=== PATIENT | male | born 1945 | race Caucasian/White ===

== ENCOUNTER 2018-01-22 15:40 | Inpatient (IN) | payer SELFPAY ==
[~2018-01-22] VITALS: Ht 182.9 cm; Wt 79.4 kg
--- NOTE | 2018-01-22 15:50 | ER Report ---
History and Physical Time Seen By MD: 15:43 HPI/ROS CHIEF COMPLAINT: leg infection HISTORY OF PRESENT ILLNESS: Pt here for evaluation of right leg infection. Pt states on thursday he was in bed and felt something bite on his right leg lateral to his knee. Did not see what happened. PT states he developed a small blister in that area that has since grown in size and has caused increase in redness to surrounding area. Pt states he has had chills and fever. Treating pain and fever with motrin and tylenol. Pt appears sob but states that is his baseline. Pt went to urgent care and was sent to the emergency department. REVIEW OF SYSTEMS: Constitutional: + fever, + chills. Eyes: No discharge. ENT: No sore throat. Cardiovascular: No chest pain, no palpitations. Respiratory: No cough, +chronic shortness of breath. Gastrointestinal: No abdominal pain, no vomiting. Genitourinary: No hematuria. Musculoskeletal: No back pain. Skin: + blister that enlarged into redness to his leg. Neurological: No headache. Allergies: Coded Allergies: codeine (Verified Allergy, Unknown, 01/22/18) Home Meds No Active Prescriptions or Reported Meds Past Medical/Surgical History Pmhx: skin ca to face and neck not receiving chemo or radiation Pshx: pilonidal cyst Reviewed Nurses Notes: Yes Old Medical Records Reviewed: No (no old records) Hx Smoking: No Hx Alcohol Use: No Constitutional Vital Sign - Last 24 Hours 01/22/18 15:46 Temp 98.2 Pulse 89 Resp 20 B/P (MAP) 133/78 Pulse Ox 94 O2 Delivery Room Air Physical Exam General Appearance: The patient is alert, has no immediate need for airway protection and no signs of toxicity. Eyes: Pupils equal and round no pallor or injection, EOMI ENT: no pharyngeal erythema or exudates, Mucous membranes are moist Respiratory: There are no retractions, lungs are clear to auscultation. Cardiovascular: Regular rate and rhythm. pulses are equal and symmetrical Gastrointestinal: Abdomen is soft and non tender, no masses, bowel sounds normal, no guarding, no rigidity or rebound Neurological: Cranial nerves II-XII grossly intact, no sensory or motor loss Skin: +r facial lesion under left eye and left side of neck chronic; + 12 x 20cm central erythema with streaking up his thigh and down his leg to ankle. Musculoskeletal: Neck is supple non tender, no vertebral tenderness Extremities are nontender, non swollen and have full range of motion. DIFFERENTIAL DIAGNOSIS: After history and physical exam differential diagnosis was considered for brown recluse spider bite, cellulitis, vasculitis, polyderma granerosum Medical Decision Making Data Points Result Diagram: 01/22/18 1550 01/22/18 1550 Laboratory Hematology Test 01/22/18 15:50 01/22/18 16:52 Red Blood Count 2.78 M/uL (4.00-5.60) Mean Corpuscular Volume 91.8 fL (80.0-96.0) Mean Corpuscular Hemoglobin 29.2 pg (26.0-33.0) Mean Corpuscular Hemoglobin Concent 31.8 g/dL (32.0-36.0) Red Cell Distribution Width 19.8 % (11.5-14.5) Mean Platelet Volume 8.5 fL (7.2-11.1) Neutrophils (%) (Auto) % (39.4-72.5) Lymphocytes (%) (Auto) % (17.6-49.6) Monocytes (%) (Auto) % (4.1-12.4) Eosinophils (%) (Auto) % (0.4-6.7) Basophils (%) (Auto) % (0.3-1.4) Nucleated RBC Relative Count (auto) /100WBC Neutrophils # (Auto) K/uL (2.0-7.4) Lymphocytes # (Auto) K/uL (1.3-3.6) Monocytes # (Auto) K/uL (0.3-1.0) Eosinophils # (Auto) K/uL (0.0-0.5) Basophils # (Auto) K/uL (0.0-0.1) Nucleated RBC Absolute Count (auto) K/uL Neutrophils % (Manual) 68 % (39.4-72.5) Band Neutrophils % 8 % Lymphocytes % (Manual) 16 % (17.6-49.6) Monocytes % (Manual) 8 % (4.1-12.4) Eosinophils % (Manual) 0 % (0.4-6.7) Basophils % (Manual) 0 % (0.3-1.4) Nucleated Red Blood Cells 2 Poikilocytosis 1+ Anisocytosis 1+ Prothrombin Time 15.3 seconds (12.0-14.4) Prothromb Time International Ratio 1.20 Activated Partial Thromboplast Time 38 seconds (23-35) Sodium Level 136 mmol/L (137-145) Potassium Level 4.1 mmol/L (3.5-5.0) Chloride Level 103 mmol/L (98-107) Carbon Dioxide Level 22 mmol/L (22-30) Blood Urea Nitrogen 20 mg/dl (9-21) Creatinine 1.00 mg/dl (0.66-1.25) Glomerular Filtration Rate Calc > 60.0 Random Glucose 141 mg/dl (75-110) Calcium Level 9.0 mg/dl (8.4-10.2) Total Bilirubin 1.1 mg/dl (0.2-1.3) Aspartate Amino Transf (AST/SGOT) 36 U/L (0-35) Alanine Aminotransferase (ALT/SGPT) 37 U/L (0-56) Alkaline Phosphatase 62 U/L (0-126) C-Reactive Protein 15.7 mg/dl (<1.0) Total Protein 7.3 g/dl (6.3-8.2) Albumin 3.7 g/dl (3.5-5.0) Lactate 1.8 mmol/L (0.7-2.1) Chemistry Test 01/22/18 15:50 01/22/18 16:52 White Blood Count 4.3 k/uL (4.5-11.0) Red Blood Count 2.78 M/uL (4.00-5.60) Hemoglobin 8.1 g/dL (14.0-18.0) Hematocrit 25.5 % (42.0-52.0) Mean Corpuscular Volume 91.8 fL (80.0-96.0) Mean Corpuscular Hemoglobin 29.2 pg (26.0-33.0) Mean Corpuscular Hemoglobin Concent 31.8 g/dL (32.0-36.0) Red Cell Distribution Width 19.8 % (11.5-14.5) Platelet Count 61 K/uL (150-450) Mean Platelet Volume 8.5 fL (7.2-11.1) Neutrophils (%) (Auto) % (39.4-72.5) Lymphocytes (%) (Auto) % (17.6-49.6) Monocytes (%) (Auto) % (4.1-12.4) Eosinophils (%) (Auto) % (0.4-6.7) Basophils (%) (Auto) % (0.3-1.4) Nucleated RBC Relative Count (auto) /100WBC Neutrophils # (Auto) K/uL (2.0-7.4) Lymphocytes # (Auto) K/uL (1.3-3.6) Monocytes # (Auto) K/uL (0.3-1.0) Eosinophils # (Auto) K/uL (0.0-0.5) Basophils # (Auto) K/uL (0.0-0.1) Nucleated RBC Absolute Count (auto) K/uL Neutrophils % (Manual) 68 % (39.4-72.5) Band Neutrophils % 8 % Lymphocytes % (Manual) 16 % (17.6-49.6) Monocytes % (Manual) 8 % (4.1-12.4) Eosinophils % (Manual) 0 % (0.4-6.7) Basophils % (Manual) 0 % (0.3-1.4) Nucleated Red Blood Cells 2 Poikilocytosis 1+ Anisocytosis 1+ Prothrombin Time 15.3 seconds (12.0-14.4) Prothromb Time International Ratio 1.20 Activated Partial Thromboplast Time 38 seconds (23-35) Glomerular Filtration Rate Calc > 60.0 Calcium Level 9.0 mg/dl (8.4-10.2) Total Bilirubin 1.1 mg/dl (0.2-1.3) Aspartate Amino Transf (AST/SGOT) 36 U/L (0-35) Alanine Aminotransferase (ALT/SGPT) 37 U/L (0-56) Alkaline Phosphatase 62 U/L (0-126) C-Reactive Protein 15.7 mg/dl (<1.0) Total Protein 7.3 g/dl (6.3-8.2) Albumin 3.7 g/dl (3.5-5.0) Lactate 1.8 mmol/L (0.7-2.1) Coagulation Test 01/22/18 15:50 Prothrombin Time 15.3 seconds Prothromb Time International Ratio 1.20 Activated Partial Thromboplast Time 38 seconds Microbiology Microbiology Date/Time Source Procedure Growth Status 01/22/18 15:46 Leg Right Gram Stain - Final Resulted 01/22/18 15:46 Leg Right Wound Culture Pending Resulted ED Course/Re-evaluation Clinical Indication for ER IV: IV Access ED Course Check labs including blood cultures and start IV abx. Did obtain a wound culture from center which was draining. 01/22/2018 4:38:55 pm Pts labs are returning. Pt is pancytopenic. Spoke with pt and he was unaware of ever having low blood counts in his past. Order type and screen. will add lactate. will speak with hospitalist. Will start vanco and suspect zosyn will need to be added. 01/22/2018 5:08:[address] Amin, hospitalist. He accepts the patient to the floor. Pts lactate is negative. Is aware the only abx given is vanco at this time. Did discuss CT of the leg to look further at the wound but at this time we are holding off. Dr. Amin will further evaluate the patient on arrival to floor. Decision to Disposition Date: Jan 22, 2018 Decision to Disposition Time: 17:10 Depart Departure Latest Vital Signs Vital Signs Date Time Temp Pulse Resp B/P (MAP) Pulse Ox O2 Delivery O2 Flow Rate FiO2 01/22/18 15:46 98.2 89 20 133/78 94 Room Air Impression: Primary Impression: Cellulitis and abscess of right leg Additional Impressions: Pancytopenia Skin cancer of face Condition: Condition Unchanged Disposition: Admitted from ER New Scripts No Active Prescriptions or Reported Meds Problem Qualifiers JYOTHI DAVILA DO Jan 22, 2018 15:50
[2018-01-22 16:12] LABS: INR 1.2
[2018-01-22 16:27] LABS: PLATELET COUNT, AUTOMATED 61 K/uL (150-450)
[2018-01-22] MEDS ORDERED: VANCOMYCIN 1 GM ADDVIAL 1 GM in NS(*) 0.9% 250 ML ADDVAN BAG 250 ML IVPB ONE ×2 (16:45→18:25)
[2018-01-22 17:49] VITALS: BP 119/76
[2018-01-22] MEDS ORDERED: NS(*) 0.9% 500 ML BAG 500 ML IV PRN (18:20)
[2018-01-22] MEDS ORDERED: FLUSH 10 ML SYR IVP PRN (18:25)
[2018-01-22] MEDS ORDERED: ONDANSETRON 4 MG/2 ML VIAL IVP PRN (18:25)
[2018-01-22] MEDS ORDERED: ceFAZolin 1 GM VIAL IVP SCH (18:45)
[2018-01-22] MEDS: ceFAZolin(*) 1 GM VIAL 1 GM in NS(*) 0.9% 100 ML ADDVANT BAG 100 ML IV SCH (18:55)
[2018-01-22 19:25] VITALS: Ht 182.9 cm; Wt 79.4 kg
--- NOTE | 2018-01-22 19:36 | History & Physical ---
History of Present Illness Chief Complaint R lateral knee wound History of Present Illness 72M admitted for R knee wound and cellulitis. Noted pain in bed on Thursday and believed he may have been bitten by spider. Area developed blister/blood blister look to it. next day. He tried using OTC antibiotic ointment, hydrogen peroxide, alcohol and baking soda on it. Continued to worsen and he presented to [facility] ER when it began to extend further. Previously sought minimal medical attention, has Hx skin cancer on neck and under L eye of unknown type. Reports chronic FLORES but does not use oxygen. He is noted to have pancytopenia on labs and CRP is si gnificantly elevated. Vitals and labs otherwise look pretty good. History Problems: (1) Skin cancer of face Status: Chronic Home Meds No Active Prescriptions or Reported Meds Allergies: Coded Allergies: codeine (Verified Allergy, Unknown, 01/22/18) Patient History: FH: borderline diabetes MOTHER FH: cancer BROTHER OR SISTER Polio MOTHER Hx Smoking: No Hx Alcohol Use: Yes When Quit Alcohol?: 1972 Hx Substance Use Disorder: No Review of Systems All Systems Reviewed/Normal: Yes, Except as Noted Constitutional: Weight Gain; No Fever, No Weight Loss Respiratory: Other (FLORES) Gastrointestinal: No Nausea, No Vomiting Musculoskeletal: Pain (Mild R knee with walking) Exam Vital Signs Vital Signs Date Time Temp Pulse Resp B/P (MAP) Pulse Ox O2 Delivery O2 Flow Rate FiO2 01/22/18 17:49 97.9 72 16 119/76 (90) 91 Room Air General Appearance: Alert, Awake, No Acute Distress Neuro: No Gross deficits Eyes: Other (L lower lid droops 2/2 reported skin cancer) ENT: Other (missing molars) Neck: Other (L neck superficial malignancy, possible BCC?) Cardiovascular: Normal Rhythm & Peripheral Pulses Respiratory: No Respiratory Distress GI: Abd Soft and Non-Tender Musculoskeletal: No Weakness/Pain Extremities: Soft and Non Tender Integumentary: Other (Lesions as noted in neck and head, R lateral knee ecchymosis and apparent cellulitis approx 20 x 15cm with faint redness extending toward groin and hamstring) Psych: Alert & Oriented X3 Medical Decision Making Data Points Result Diagram: 01/22/18 1550 01/22/18 1550 Laboratory Tests Prothrombin Time 15.3, Prothromb Time International Ratio 1.20, Activated Partial Thromboplast Time 38 C-Reactive Protein 15.7 Lactate 1.8, Uric Acid 5.2, Lactate Dehydrogenase 620 Assessment and Plan Problems: (1) Cellulitis Assessment & Plan: Some element of cellulitis with possible overlying vasculitis. May also be ecchymotic changes associated with increased vascular permeability and low platelet count. No obvious abscess and appears to be more skin tear at this time. No Purulent drainage, will begin Ancef to cover for MSSA and strep. No obvious risk factors for MRSA. (2) Pancytopenia Status: Acute Assessment & Plan: Uncertain etiology, appropriate reticulocyte elevation slightly less concerning for hematopoietic problem, but some concern given history of minimally treated malignancy this could indicate marrow involvement. No indication of hemolysis. RDW is elevated and MCV WNL. B12, folate, iron panel, ferritin ordered. Recommend peripheral smear review by pathologist as outpatient or if patient is still admitted on Thursday. (3) Skin cancer of face Status: Chronic Assessment & Plan: Per patient no treatment for last 4 years, tried some kind of experimental topical treatment. Uncertain what type of malignancy. Venous Thromboembolism Antithrombotics Is Pt On Any Antithrombotics?: No Prophylaxis Tx Contraindicated Pharmacological Contraindicati: Low Platelet Count (Early ambulation) Exam Sepsis Risk: No Definite Risk ARCE ALBA SMITH DO Jan 22, 2018 18:56
[2018-01-22 19:48] VITALS: BP 108/53
[2018-01-22] MEDS: DOCUSATE SOD LIQ 100 MG/10 ML UDC PO SCH (21:31)
[2018-01-22] MEDS: POLYETHYLENE GLYCOL 17 GM PKT PO SCH (21:31)
[2018-01-23] VITALS (15 sets, daily range): BP systolic 88–139; BP diastolic 51–74
[2018-01-23] MEDS: ceFAZolin(*) 1 GM VIAL 1 GM in NS(*) 0.9% 100 ML ADDVANT BAG 100 ML IV SCH ×3 (02:16→17:15)
[2018-01-23] MEDS: ACETAMINOPHEN 325 MG TAB PO PRN ×2 (03:46→10:44)
[2018-01-23] MEDS ORDERED: VANCOMYCIN(*) 1 GM VIAL 1 GM, VANCOMYCIN (*) 0.5 GM VIAL 0.25 GM in NS(*) 0.9% 250 ML B... IVPB SCH (05:30)
[2018-01-23 05:52] LABS: PLATELET COUNT, AUTOMATED 51 K/uL (150-450)
[2018-01-23] MEDS: POLYETHYLENE GLYCOL 17 GM PKT PO SCH (09:00)
[2018-01-23] MEDS: DOCUSATE SOD LIQ 100 MG/10 ML UDC PO SCH ×2 (09:00→20:50)
[2018-01-23 10:50] LABS: INR 1.19
--- NOTE | 2018-01-23 11:43 | Gen Surgery History & Physical ---
History of Present Illness Chief Complaint Right Leg Wound History of Present Illness Mr. 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 He swiped at it thinking it was a bug that bit him but didn't see one. He had a small red spot that expanded to about 8cm over the next 3 days. It wasn't particularly tender and wasn't swollen. The central part of the erythema then showed signs of necrosis and he presented to the ED yesterday with erythema tracking proximally up to his mid thigh. He has not had any episodes like this previously. His history is significant for metastatic melanoma for which he was last treated 2 1/2 years ago in [place]. The primary is apparently on his left neck or face with deep involvement locally under his left face. It is reportedly non-operable. He was offerred what sounds like immunotherapy and radiation at that time but refused and elected to proceed with comfort care. He has been fatigued for several months and has not been having regular follow-up for blood studies. He was found to be pancytopenic in the ED but has not recent labs for comparison. History Problems: (1) Metastatic melanoma to head and neck Status: Chronic (2) Pancytopenia Status: Acute (3) Cellulitis and abscess of right leg Status: Acute Home Meds No Active Prescriptions or Reported Meds Allergies: Coded Allergies: codeine (Verified Allergy, Unknown, 01/22/18) Patient History: FH: borderline diabetes MOTHER FH: cancer BROTHER OR SISTER Polio MOTHER Review of Systems All Systems Reviewed/Normal: Yes, Except as Noted Constitutional: Weight Loss Respiratory: Shortness of Breath Exam General Appearance: Alert, Awake, No Acute Distress Neuro: No Gross deficits Eyes: PERRLA ENT: Other (discoloration left orbit, sunken orbit on left, raised mass on left inferior neck) Respiratory: No Respiratory Distress GI: Abd Soft and Non-Tender Extremities: Other (all but right leg normal: 3cm necrotic area with eschar right lateral knee; dark erythema extending 20cm diamter. Marking up to mid thigh from user experience lead erythema noted last evening as resolved.) Psych: Alert & Oriented X3, Appropriate Mood & Affect Medical Decision Making Data Points Result Diagram: 01/23/18 1021 01/23/18 0528 Assessment and Plan Problems: (1) Pancytopenia Status: Acute (2) Cellulitis and abscess of right leg Status: Acute Assessment & Plan: 01/23/2018: This appears to be most likely due to a spider bite. Unclear if it was a brown recluse or simply an exaggerated response due to his immunosuppresion. The cellulitis is under good control with the dose of Vancomycin he received last evening and subsequent cefazolin. I will take him to the OR later today at 1700 for debridement of the 3cm necrotic center for further control of the infection. I expect this to heal by secondary intent without the need for a skin graft or flap. 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 At that time he elected to proceed with comfort care and not pursue further immunotherapy and radiation. He has not had any follow-up since that time. This is most likely the cause of his pancytopenia and bone marrow suppression. Given his decision for comfort care, I do not recommend an extensive workup. I discussed the significance of this finding with the patient, his and daughter and they appeared to have a good understanding. Venous Thromboembolism Antithrombotics Is Pt On Any Antithrombotics?: No SHERLYN GRAHAM MD Jan 23, 2018 11:43
[2018-01-23] MEDS ORDERED: NORMOSOL R SOLN(*) 1000 ML BAG 1,000 ML IV ONE (13:20)
[2018-01-23] MEDS ORDERED: FAMOTIDINE 20 MG TAB PO ONE (13:20)
--- NOTE | 2018-01-23 13:20 | Hospitalist Progress Note ---
Subjective Progress Notes Subjective He denies any new complaints this AM. He states he is having significant pain in the right leg/wound when up. Physical Exam Vital Signs Date Time Temp Pulse Resp B/P (MAP) Pulse Ox O2 Delivery O2 Flow Rate FiO2 01/23/18 07:19 99.4 73 16 120/67 (84) 90 Room Air Intake and Output 01/23/18 07:00 Intake Total 422 ml Output Total 1 ml Balance 421 ml IV Total 422 ml Output Urine Total 1 ml # Bowel Movements 1 General Appearance: Alert, Awake Eyes: Other (discoloration left periorbital area) Neck: Other (raised/nodular area left inferior anterior neck) Cardiovascular: Regular Rate and Rhythm Respiratory: Clear to Auscultation GI: Soft and Non-Tender Extremities: Warm, Perfused Integumentary: Other (A large area of ecchymosis over right lateral distal thigh/knee/proximal lower leg with central area of necrosis/eschar. Some serosanguinous drainage is noted. No specific purulence is noted.) Psych: Alert & Oriented X3 Result Diagram: 01/23/18 1021 01/23/18 0528 Assessment and Plan Problems: (1) Cellulitis Assessment & Plan: Etiology may be an initial spider envenomation with subsequent necrosis of the skin. May possibly be a brown recluse bite. Will discuss with general surgery regarding need for possible debridement. It did initially appear he may have some surrounding cellulitis as well. This has improved with the antibiotics. Will continue Ancef for now. (2) Skin cancer of face Status: Chronic Assessment & Plan: Per patient no treatment for last 4 years, tried some kind of experimental topical treatment. Based on further history obtained by Dr. Urias, he has had metastatic melanoma for several years. He has not had any treatment for the past several years. This most likely explains his pancytopenia as he probably has bone marrow involvement/suppression due to the melanoma. (3) Pancytopenia Status: Acute Assessment & Plan: Probably due to metastatic malignant melanoma involvement of his bone marrow. Will monitor counts. Exam Sepsis Risk: No Definite Risk ANANTH VALENTINO MD Jan 23, 2018 13:20
--- NOTE | 2018-01-23 13:36 | Medical Nutrition Therapy ---
Nutrition Anthropometrics Height (Inches): 72.00 Height (Calculated Centimeters: 182.412448 Weight (Pounds): 175 Weight (Calculated Kilograms): 79.379 BMI: 23.7 Bob Nutrition Score: Adequate Bob Nutrition Risk Score: 19 Dietary Referral Nutrition Risk Factors: Nutrition Risk Comment: Physical Findings Physical Appearance: WNL Skin Appearance Skin Appearance: Edema Edema Location Modifier: Edema Location: Type of Edema: Degree of Edema: Gastrointestinal Symptoms GI Symtoms: Tube Present: Bowel Sounds: Recent Bowel Pattern: Stool Characteristics: Nutrition/Food History No Significant Nutr. HX Fair Nutritional Diagnosis Nutritional Risk Acuity 2: Head/Neck/GI Cancer, Abcess/Non-Healing Wound Nutritional Risk Acuity 4: %IBW 90-100% Past Medical History: Metastatic melanoma Nutritional Acuity: 2-Moderate Nutrition Diagnosis: Increased Nutrient Needs Nutrition Etiology: Physiological Causes Nutrition Problem/Etiology/Sym: Increased Nutrient Needs related to increased demand for nutrients secondary to wound healing and infection AEB low albumin status indicating increased stress and increased metabolic needs. Energy Requirement: 2360 ([place]-St Jeor: Actual BW X 1.5) Protein Requirement: 80 (Actual BW Kg X 1.0) Fluid Requirement: 2360 Diet Type: NPO (Nothing by Mouth) Nutrition Intervention: Cont diet as ordered, Change diet Nutrition Monitoring & Eval Nutrition Goals: Eat 75-100% Meal RD Patient Assessment Time: [address] Assessment Type: RD Assessment Patient Nutrition Acuity: 2-Moderate Follow Up Date: Jan 24, 2018 Nutritional Comment: 01/23 Pt admitted for Cellulitis and abscess of R leg and Pancytopenia. Also history of Metastatic melanoma to head and neck with no treatment for several years d/t pts wish for comfort care only. Low H/H, RBC, WBC, Platlets. Alb 3.0. NPO at present. Within normal wt range with BMI of 23.7. Follow for diet change, labs, etc. -ANITHA MARRERO Jan 23, 2018 13:36
[2018-01-23] MEDS ORDERED: BUPIVACAINE 0.5% INJ 50ML VIAL INFIL ONE (16:31)
[2018-01-23] MEDS ORDERED: LIDOCAINE MPF 1% 5 ML VIAL ONE (16:36)
[2018-01-23] MEDS ORDERED: PROPOFOL EMUL(*) 10MG/ML 20 ML 40 ML ONE (16:36)
[2018-01-23] MEDS ORDERED: fentaNYL CITR 100 MCG/2 ML AMP ONE (16:36)
[2018-01-23] MEDS ORDERED: ONDANSETRON 4 MG/2 ML VIAL ONE (16:38)
--- NOTE | 2018-01-23 17:28 | Post Operative Note ---
Operative Note - ENT Operative Day Date: Jan 23, 2018 Time: 17:23 Physicians Surgeon: Sherlyn Urias MD, FACS Rn Integrated: None Anesthesia: Local MAC Diagnosis Pre-Op Diagnosis: Abscess and Tissue Necrosis Right Lateral Knee Post-Op Diagnosis: Same Procedure Findings: deep subcutaneous abscess with overlying skin necrosis Procedure(s): Excision and Debridement of Right Knee Wound Description: Placed in a supine position. Draped site without prep to allow for accurate cultures. 0.5% Marcaine plain 18ml injected for field block. Necrotic skin excised for a 3cm diameter with a 15 blade. Abscess cavity entered and culture for both aerobic and anaerobic. Small piece of excised tisse sent to look for signs of metstatic melanoma. Wound debrided to clean edges which did not exceed the excised diameter of 3cm. Hemostasis by direct pressure. Wet to Dry dressing. Specimen Removed:(Maybe N/A): 1. Aerobic Culture 2. Anaerobic Culture 3. Tissue for pathology Complications: None Fluids Fluids: 400ml Estimated Blood Loss: 5ml SHERLYN URIAS MD Jan 23, 2018 17:28
[2018-01-23] MEDS ORDERED: ACETAMINOPHEN(*)1000 MG/100 ML 100 ML IVPB ONE ×2 (17:35)
[2018-01-23] MEDS ORDERED: INFLUENZA VIRUS VAC 0.5ML SYR IM ONLY ONE (18:25)
[2018-01-24 00:15] VITALS: BP 91/51
[2018-01-24] MEDS: ceFAZolin(*) 1 GM VIAL 1 GM in NS(*) 0.9% 100 ML ADDVANT BAG 100 ML IV SCH ×3 (01:51→18:04)
[2018-01-24 03:22] VITALS: BP 113/70
[2018-01-24 04:15] VITALS: BP 92/52
[2018-01-24 06:22] LABS: PLATELET COUNT, AUTOMATED 56 K/uL (150-450)
[2018-01-24] MEDS: DOCUSATE SODIUM 100 MG CAP PO SCH ×2 (09:00→21:36)
[2018-01-24] MEDS: POLYETHYLENE GLYCOL 17 GM PKT PO SCH (09:00)
[2018-01-24 09:43] VITALS: BP 102/59
--- NOTE | 2018-01-24 10:19 | General Surgery Progress Note ---
Subjective Progress Notes Subjective no complaints Physical Exam Vital Signs Date Time Temp Pulse Resp B/P (MAP) Pulse Ox O2 Delivery O2 Flow Rate FiO2 01/24/18 09:43 98.0 80 16 102/59 (73) 92 Room Air 01/24/18 04:15 1.0 Intake and Output 01/24/18 07:00 Intake Total 1272 ml Balance 1272 ml Intake Oral 370 ml IV Total 902 ml # Voids 6 # Bowel Movements 1 General Appearance: Alert, Awake, No Acute Distress Integumentary: Other (erythema around room unchanged) Psych: Alert & Oriented X3, Appropriate Mood & Affect Result Diagram: 01/24/18 0553 01/24/18 0553 Assessment and Plan Problems: (1) Pancytopenia Status: Acute (2) Cellulitis and abscess of right leg Status: Acute Assessment & Plan: 01/23/2018: This appears to be most likely due to a spider bite. Unclear if it was a brown recluse or simply an exaggerated response due to his immunosuppresion. The cellulitis is under good control with the dose of Vancomycin he received last evening and subsequent cefazolin. I will take him to the OR later today at 1700 for debridement of the 3cm necrotic center for further control of the infection. I expect this to heal by secondary intent without the need for a skin graft or flap. 01/24/2018: Daily dressing changes. Awaiting cultures to determine home anti biotic therapy. Will place on neutropenic precautions. I discussed findings and plan with the patient and his son. 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 At that time he elected to proceed with comfort care and not pursue further immunotherapy and radiation. He has not had any follow-up since that time. This is most likely the cause of his pancytopenia and bone marrow suppression. Given his decision for comfort care, I do not recommend an extensive workup. I discussed the significance of this finding with the patie nt, his and daughter and they appeared to have a good understanding. Time Spent: < 30 min Exam Sepsis Risk: No Definite Risk SHERLYN GRAHAM MD Jan 24, 2018 10:19
--- NOTE | 2018-01-24 10:38 | Hospitalist Progress Note ---
Subjective Progress Notes Subjective This patient was admitted for cellulitis of the leg. He had no acute issues overnight. Patient Complains of: Cardiovascular: No: Chest Pain Respiratory: No: Shortness of Breath Physical Exam Vital Signs Date Time Temp Pulse Resp B/P (MAP) Pulse Ox O2 Delivery O2 Flow Rate FiO2 01/24/18 09:43 98.0 80 16 102/59 (73) 92 Room Air 01/24/18 04:15 1.0 Intake and Output 01/24/18 07:00 Intake Total 1272 ml Balance 1272 ml Intake Oral 370 ml IV Total 902 ml # Voids 6 # Bowel Movements 1 Integumentary: Other (The erythema has resolved, but he continues to have ecchymosis about the area.) Result Diagram: 01/24/18 0553 01/24/18 0553 Item Value Date Time Gram Stain - Final Resulted 01/23/18 0000 Leg Right Gram Stain - Final Resulted 01/22/18 1546 Leg Right Assessment and Plan Problems: (1) Cellulitis Assessment & Plan: The etiology may be an initial spider envenomation with subsequent necrosis of the skin. He did undergo operative debridement yesterday. He is on treatment with Ancef, and appears to be improving. His wound cultures are showing gram positive cocci. (2) Skin cancer of face Status: Chronic Assessment & Plan: He does have metastatic melanoma. He has elected not to pursue further evaluation and treatment of this issue. (3) Pancytopenia Status: Acute Assessment & Plan: Probably due to metastatic malignant melanoma involvement of his bone marrow. Will monitor counts. Exam Sepsis Risk: No Definite Risk NYA FLORES DO Jan 24, 2018 10:38
--- NOTE | 2018-01-24 14:27 | Antimicrobial Stewardship ---
Antimicrobial Time Out Antimicrobial Stewardship MD Service: Hospitalist Indications: Cellulitis Antimicrobial Used VANCO X 1G IN ER CAFAZOLIN 1G Q8H Start Date: Jan 22, 2018 Culture Results: No (PENDING) Eligible for PO Conversion Eligable for PO Conversion: Yes (CONSIDER PO CONVERSION IF IMPROVEMENT CONTINUES POST I&D) Reviewed with Provider Reviewed w/ Provider on Rounds: No JUAN MONREAL Jan 24, 2018 14:27
--- NOTE | 2018-01-24 15:12 | Medical Nutrition Therapy ---
Nutrition Anthropometrics Height (Inches): 72.00 Height (Calculated Centimeters: 182.876655 Weight (Pounds): 175 Weight (Calculated Kilograms): 79.379 BMI: 23.7 Bob Nutrition Score: Adequate Bob Nutrition Risk Score: 19 Dietary Referral Nutrition Risk Factors: Nutrition Risk Comment: Physical Findings Physical Appearance: WNL Skin Appearance Skin Appearance: Edema Edema Location Modifier: Edema Location: Type of Edema: Degree of Edema: Gastrointestinal Symptoms GI Symtoms: Diarrhea Tube Present: Bowel Sounds: Recent Bowel Pattern: Stool Characteristics: Nutrition/Food History No Significant Nutr. HX Nutritional Diagnosis Nutritional Risk Acuity 2: Head/Neck/GI Cancer, Abcess/Non-Healing Wound Nutritional Risk Acuity 4: %IBW 90-100% Past Medical History: Metastatic melanoma Nutritional Acuity: 2-Moderate Nutrition Diagnosis: Increased Nutrient Needs Nutrition Etiology: Physiological Causes Nutrition Problem/Etiology/Sym: Increased Nutrient Needs related to increased demand for nutrients secondary to wound healing and infection AEB low albumin status indicating increased stress and increased metabolic needs. Energy Requirement: 2360 (Hamilton-St Jeor: Actual BW X 1.5) Protein Requirement: 80 (Actual BW Kg X 1.0) Fluid Requirement: 2360 Diet Type: Diet as Tolerated THELMA/REG Nutrition Intervention: Cont diet as ordered, Change diet Nutrition Monitoring & Eval Nutrition Goals: Eat 75-100% Meal RD Patient Assessment Time: [address] Assessment Type: RD Re-Assessment Patient Nutrition Acuity: 2-Moderate Follow Up Date: Jan 27, 2018 Nutritional Comment: 01/23 Pt admitted for Cellulitis and abscess of R leg and Pancytopenia. Also history of Metastatic melanoma to head and neck with no treatment for several years d/t pts wish for comfort care only. Low H/H, RBC, WBC, Platlets. Alb 3.0. NPO at present. Within normal wt range with BMI of 23.7. Follow for diet change, labs, etc. -TORITO 01/24 Alb 3.0, Glu 164. Diet changed to THELMA with comsumption of meals 25-100%. Encourage intake, etc. -ANITHA MARRERO Jan 24, 2018 15:12
[2018-01-24 16:38] VITALS: BP 88/45
[2018-01-24 19:39] VITALS: BP 110/67
[2018-01-24] MEDS: ACETAMINOPHEN 325 MG TAB PO PRN (21:40)
[2018-01-25] MEDS: ceFAZolin(*) 1 GM VIAL 1 GM in NS(*) 0.9% 100 ML ADDVANT BAG 100 ML IV SCH ×2 (02:16→09:49)
[2018-01-25 02:22] VITALS: BP 91/54
[2018-01-25 06:34] LABS: PLATELET COUNT, AUTOMATED 52 K/uL (150-450)
[2018-01-25 07:26] VITALS: BP 101/62
[2018-01-25] MEDS: DOCUSATE SODIUM 100 MG CAP PO SCH (09:50)
[2018-01-25] MEDS: POLYETHYLENE GLYCOL 17 GM PKT PO SCH (09:50)
[2018-01-25] MEDS ORDERED: CEPH500T7 PO (10:04)
--- NOTE | 2018-01-25 10:09 | Hospitalist Depart ---
Discharge Summary Reason for Hosp/Final Diag: (1) Cellulitis Hospital Course & Plan: The etiology may be an initial spider envenomation with subsequent necrosis of the skin. He did undergo operative debridement 01/23. He was on treatment with Ancef, and appears to be improving. His wound cultures are showing gram positive cocci. He will be switched to oral Keflex for 10 more days. He will follow up with Dr. Carter within one week. (2) Skin cancer of face Status: Chronic Hospital Course & Plan: He does have metastatic melanoma. He has elected not to pursue further evaluation and treatment of this issue. (3) Pancytopenia Status: Acute Hospital Course & Plan: Probably due to metastatic malignant melanoma involvement of his bone marrow. Recommended patient follow up with PCP. He has elected no treatment at this time. Departure Latest Vital Signs Vital Signs 01/25/18 07:26 Temp 98.9 Pulse 66 Resp 16 B/P (MAP) 101/62 (75) Pulse Ox 1 O2 Delivery Nasal Cannula O2 Flow Rate 1.0 Weight (Pounds): 175 Result Diagram: 01/25/18 0535 01/24/18 0553 Condition: Improved Discharge: Home, Self Care Discharge Instructions Home Meds No Active Prescriptions or Reported Meds Diet: Regular Activity: As Tolerated Special Instructions: Please follow up with Dr. Carter within one week regarding wound. Please follow up with primary care physician in 1-2 weeks. Venous Thromboembolism Antithrombotics Is Pt On Any Antithrombotics?: No AMEENA ALFARO ORDER RUNNER Jan 25, 2018 10:09
--- NOTE | 2018-01-25 16:31 | General Surgery Progress Note ---
Subjective Progress Notes Subjective Feels better Physical Exam Vital Signs Date Time Temp Pulse Resp B/P (MAP) Pulse Ox O2 Delivery O2 Flow Rate FiO2 01/25/18 11:34 93 Room Air 01/25/18 07:26 98.9 66 16 101/62 (75) 1.0 Intake and Output 01/25/18 06:59 Intake Total 540 ml Balance 540 ml Intake Oral 240 ml IV Total 300 ml # Voids 2 # Bowel Movements 2 General Appearance: Alert, Awake, No Acute Distress Extremities: Other (edema continues to improve; wound clean) Psych: Alert & Oriented X3, Appropriate Mood & Affect Result Diagram: 01/25/18 0535 01/24/18 0553 Assessment and Plan Problems: (1) Pancytopenia Status: Acute (2) Cellulitis and abscess of right leg Status: Acute Assessment & Plan: 01/23/2018: This appears to be most likely due to a spider bite. Unclear if it was a brown recluse or simply an exaggerated response due to his immunosuppresion. The cellulitis is under good control with the dose of Vancomycin he received last evening and subsequent cefazolin. I will take him to the OR later today at 1700 for debridement of the 3cm necrotic center for further control of the infection. I expect this to heal by secondary intent without the need for a skin graft or flap. 01/24/2018: Daily dressing changes. Awaiting cultures to determine home antibiotic therapy. Will place on neutropenic precautions. I discussed findings and plan with the patient and his son. 01/25/2018: Improving s/p debridement on Ancef. Plan for discharge with Keflex. Follow-up with Dr. Carter for wound care. Needs to establish a PCP. 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 At that time he elected to proceed with comfort care and not pursue further immunotherapy and radiation. He has not had any follow-up since that time. This is most likely the cause of his pancytopenia and bone marrow suppression. Given his decision for comfort care, I do not recommend an extensive workup. I discussed the significance of this finding with the patient, his and daughter and they appeared to have a good understanding. Time Spent: < 30 min Exam Sepsis Risk: No Definite Risk SHERLYN GRAHAM MD Jan 25, 2018 16:30
== END 2018-01-25 18:15 | disposition home or self-care (01) | DRG 571 ==
LOC: ER 16:13 → MED 17:22
PROVIDERS: ADMIT Internal Medicine; ATTEND Internal Medicine
PROC: 0JBN0ZZ Excision of Right Lower Leg Subcutaneous Tissue and Fascia, Open Approach (ICD-10-PCS; principal; 2018-01-23 16:47)
DX: L03.115 Cellulitis of right lower limb (principal); D61.818 Other pancytopenia; C79.2 Secondary malignant neoplasm of skin; T63.301A Toxic effect of unspecified spider venom, accidental (unintentional), initial encounter; C44.309 Unspecified malignant neoplasm of skin of other parts of face; Y92.003 Bedroom of unspecified non-institutional (private) residence as the place of occurrence of the external cause; Z88.8 Allergy status to other drugs, medicaments and biological substances; Z85.828 Personal history of other malignant neoplasm of skin
CPT/HCPCS: 11042; 36415; 82040; 82247; 82310; 82374; 82435; 82565; 82607; 82728; 82746; 82947; 83540; 83550; 83605; 83615; 84075; 84132; 84155; 84295; 84450; 84460; 84520; 84550; 85018; 85025; 85045; 85049; 85379; 85384; 85610; 85730; 86140; 86850; 86900; 86901; 87040; 87070; 87071; 87073; 87077; 87186; 87205; 88305; 96365; 99284; J0131; J0690; J2001; J2405; J2704; J3010; J3370; J3490; J7050

== ENCOUNTER 2018-04-01 05:15 | Emergency (ER) | payer MEDICARE, OTHER ==
[2018-01-22 19:25] VITALS: Wt 84.4 kg
[~2018-04-01 05:15] MED LIST: CEPH500T7 PO
--- NOTE | 2018-04-01 05:35 | ER Report ---
History and Physical Time Seen By MD: 05:23 Hx. of Stated Complaint: FOUND IN HIS CAR WITH A GUN ON THE FRONT SEAT AFTER [employer] WAS CONTACTED BY HIS SON WITH CONCERNS FOR HIS SAFETY HPI/ROS CHIEF COMPLAINT: Suicidal ideation HISTORY OF PRESENT ILLNESS: 72-year-old male brought in by police on emergency prison. Patient text that his son that he wanted to and plan to shoot himself with his firearm. He apparently was unable to bring himself to do it and then was planning to have the police shoot him. Patient drove to the police station was sitting in a parking lot. The firearm on the seat. He was anticipating confronting officers and being shot. Patient has metastatic basal cell cancer. He was seen recently by radiation oncology. He was anticipating an extensive course of radiation treatment. Which I think is contributing to his depression. 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 Cardiovascular: No chest pain, no palpitations. Gastrointestinal: No vomiting, no abdominal pain. Musculoskeletal: No back pain. Allergies: Coded Allergies: codeine (Verified Allergy, Unknown, 01/22/18) Home Meds Reported Medications Lorazepam (LORAZEPAM) 1 Mg Tab, 1 MG PO PRN, TAB Pt. takes 1 tab before radition. 04/01/18 Polyvinyl Alcohol/Povidone/Pf (REFRESH CLASSIC EYE DROPS) 1 Each Droperette, 1 EACH OP 04/01/18 Dimethicone (RESTORE DIMETHICREME) 118 Ml Cream.ml., 118 ML TP 04/01/18 Polymyxin B Sulf/Trim 10,000 Unt-1 Mg/Ml Op (POLYMYXIN B-TMP EYE DROPS) 10 Ml Drops, 10 ML OP, BOT 04/01/18 Reviewed Nurses Notes: Yes Old Medical Records Reviewed: Yes Hx Smoking: No Smoking Status: Never Smoker Hx Substance Use Disorder: No Hx Alcohol Use: Yes Constitutional Vital Sign - Last 24 Hours 04/01/18 04/01/18 04/01/18 04/01/18 05:16 05:16 05:30 06:00 Temp 97.6 Pulse 89 ? Resp 20 B/P (MAP) 127/78 127/78 (94) ???/??? (1665) ???/??? (1665) Pulse Ox 98 O2 Delivery Room Air 04/01/18 04/01/18 04/01/18 04/01/18 07:00 07:20 07:30 08:00 Pulse ? B/P (MAP) ???/??? (1665) 112/72 (85) ???/??? (1664) ???/??? (1665) Pulse Ox 88 04/01/18 08:30 B/P (MAP) ???/??? (1665) Physical Exam General Appearance: The patient is alert, has no immediate need for airway protection and no current signs of toxicity. Vital signs stable, afebrile, pulse ox normal, angry and frustrated HEENT: Pupils equal and round no injection. Large open sore under her left eye extending to the bridge of the nose Respiratory: Chest is non tender, lungs are clear to auscultation. Cardiac: regular rate and rhythm Gastrointestinal: Abdomen is soft and non tender, no masses, bowel sounds normal. Musculoskeletal: Neck: Neck is supple and non tender. Extremities have full range of motion and are non tender. Skin: No rashes or lesions. DIFFERENTIAL DIAGNOSIS: After history and physical exam differential diagnosis was considered for depression including functional and major depression, situational depression, medication side effect, drugs and alcohol abuse. Medical Decision Making Data Points Result Diagram: 04/01/18 0630 04/01/18 0553 Laboratory Hematology Test 04/01/18 05:53 04/01/18 06:30 04/01/18 06:35 Sodium Level 141 mmol/L (137-145) Potassium Level 3.9 mmol/L (3.5-5.0) Chloride Level 110 mmol/L (98-107) Carbon Dioxide Level 19 mmol/L (22-30) Blood Urea Nitrogen 15 mg/dl (9-21) Creatinine 1.00 mg/dl (0.66-1.25) Glomerular Filtration Rate Calc > 60.0 Random Glucose 148 mg/dl (75-110) Calcium Level 9.3 mg/dl (8.4-10.2) Magnesium Level 2.3 mg/dl (1.7-2.2) Total Bilirubin 1.6 mg/dl (0.2-1.3) Aspartate Amino Transf (AST/SGOT) 27 U/L (0-35) Alanine Aminotransferase (ALT/SGPT) 21 U/L (0-56) Alkaline Phosphatase 81 U/L (0-126) Total Protein 7.0 g/dl (6.3-8.2) Albumin 3.9 g/dl (3.5-5.0) Thyroid Stimulating Hormone (TSH) 3.10 uIU/ml (0.46-4.68) Salicylates Level < 10 mg/L Salicylate Last Dose Date unk Acetaminophen Level < 10 ug/ml Serum Alcohol < 10 mg/dl Red Blood Count 2.64 M/uL (4.00-5.60) Mean Corpuscular Volume 96.4 fL (80.0-96.0) Mean Corpuscular Hemoglobin 30.2 pg (26.0-33.0) Mean Corpuscular Hemoglobin Concent 31.3 g/dL (32.0-36.0) Red Cell Distribution Width 19.8 % (11.5-14.5) Mean Platelet Volume 8.0 fL (7.2-11.1) Neutrophils (%) (Auto) % (39.4-72.5) Lymphocytes (%) (Auto) % (17.6-49.6) Monocytes (%) (Auto) % (4.1-12.4) Eosinophils (%) (Auto) % (0.4-6.7) Basophils (%) (Auto) % (0.3-1.4) Nucleated RBC Relative Count (auto) /100WBC Neutrophils # (Auto) K/uL (2.0-7.4) Lymphocytes # (Auto) K/uL (1.3-3.6) Monocytes # (Auto) K/uL (0.3-1.0) Eosinophils # (Auto) K/uL (0.0-0.5) Basophils # (Auto) K/uL (0.0-0.1) Nucleated RBC Absolute Count (auto) K/uL Neutrophils % (Manual) 72 % (39.4-72.5) Lymphocytes % (Manual) 27 % (17.6-49.6) Monocytes % (Manual) 1 % (4.1-12.4) Eosinophils % (Manual) 0 % (0.4-6.7) Basophils % (Manual) 0 % (0.3-1.4) Platelet Estimate Low Poikilocytosis 2+ Anisocytosis 1+ Peripheral Blood Smear Yes Y/N Urine Color Yellow Urine Clarity Slightly-cloudy Urine pH 5.0 pH (4.8-9.5) Urine Specific Redig 1.021 Urine Protein Negative mg/dL (NEGATIVE) Urine Glucose (UA) Negative mg/dL (NEGATIVE) Urine Ketones Negative mg/dL (NEGATIVE) Urine Blood Negative (NEGATIVE) Urine Nitrite Negative (NEGATIVE) Urine Bilirubin Negative (NEGATIVE) Urine Urobilinogen Negative mg/dL (0.2-1.9) Urine Leukocyte Esterase Negative (NEGATIVE) Urine RBC 6 /HPF (0-2/HPF) Urine WBC 2 /HPF (0-5/HPF) Urine Squamous Epithelial Cells Few /LPF (</=FEW) Urine Transitional Epithelial Cells Few /LPF (NONE-FEW) Urine Bacteria Negative /HPF (NONE-FEW) Urine Hyaline Casts Few /LPF (NONE-FEW) Urine Mucus Few /HPF (NONE-FEW) Urine Opiates Screen Negative Urine Barbiturates Screen Negative Ur Tricyclic Antidepressants Screen Negative Urine Phencyclidine Screen Negative Urine Amphetamines Screen Negative Urine Benzodiazepines Screen Negative Urine Cocaine Screen Negative Urine Cannabinoids Screen Negative Chemistry Test 04/01/18 05:53 04/01/18 06:30 04/01/18 06:35 Glomerular Filtration Rate Calc > 60.0 Calcium Level 9.3 mg/dl (8.4-10.2) Magnesium Level 2.3 mg/dl (1.7-2.2) Total Bilirubin 1.6 mg/dl (0.2-1.3) Aspartate Amino Transf (AST/SGOT) 27 U/L (0-35) Alanine Aminotransferase (ALT/SGPT) 21 U/L (0-56) Alkaline Phosphatase 81 U/L (0-126) Total Protein 7.0 g/dl (6.3-8.2) Albumin 3.9 g/dl (3.5-5.0) Thyroid Stimulating Hormone (TSH) 3.10 uIU/ml (0.46-4.68) Salicylates Level < 10 mg/L Salicylate Last Dose Date unk Acetaminophen Level < 10 ug/ml Serum Alcohol < 10 mg/dl White Blood Count 2.1 k/uL (4.5-11.0) Red Blood Count 2.64 M/uL (4.00-5.60) Hemoglobin 8.0 g/dL (14.0-18.0) Hematocrit 25.5 % (42.0-52.0) Mean Corpuscular Volume 96.4 fL (80.0-96.0) Mean Corpuscular Hemoglobin 30.2 pg (26.0-33.0) Mean Corpuscular Hemoglobin Concent 31.3 g/dL (32.0-36.0) Red Cell Distribution Width 19.8 % (11.5-14.5) Platelet Count 62 K/uL (150-450) Mean Platelet Volume 8.0 fL (7.2-11.1) Neutrophils (%) (Auto) % (39.4-72.5) Lymphocytes (%) (Auto) % (17.6-49.6) Monocytes (%) (Auto) % (4.1-12.4) Eosinophils (%) (Auto) % (0.4-6.7) Basophils (%) (Auto) % (0.3-1.4) Nucleated RBC Relative Count (auto) /100WBC Neutrophils # (Auto) K/uL (2.0-7.4) Lymphocytes # (Auto) K/uL (1.3-3.6) Monocytes # (Auto) K/uL (0.3-1.0) Eosinophils # (Auto) K/uL (0.0-0.5) Basophils # (Auto) K/uL (0.0-0.1) Nucleated RBC Absolute Count (auto) K/uL Neutrophils % (Manual) 72 % (39.4-72.5) Lymphocytes % (Manual) 27 % (17.6-49.6) Monocytes % (Manual) 1 % (4.1-12.4) Eosinophils % (Manual) 0 % (0.4-6.7) Basophils % (Manual) 0 % (0.3-1.4) Platelet Estimate Low Poikilocytosis 2+ Anisocytosis 1+ Peripheral Blood Smear Yes Y/N Urine Color Yellow Urine Clarity Slightly-cloudy Urine pH 5.0 pH (4.8-9.5) Urine Specific Redig 1.021 Urine Protein Negative mg/dL (NEGATIVE) Urine Glucose (UA) Negative mg/dL (NEGATIVE) Urine Ketones Negative mg/dL (NEGATIVE) Urine Blood Negative (NEGATIVE) Urine Nitrite Negative (NEGATIVE) Urine Bilirubin Negative (NEGATIVE) Urine Urobilinogen Negative mg/dL (0.2-1.9) Urine Leukocyte Esterase Negative (NEGATIVE) Urine RBC 6 /HPF (0-2/HPF) Urine WBC 2 /HPF (0-5/HPF) Urine Squamous Epithelial Cells Few /LPF (</=FEW) Urine Transitional Epithelial Cells Few /LPF (NONE-FEW) Urine Bacteria Negative /HPF (NONE-FEW) Urine Hyaline Casts Few /LPF (NONE-FEW) Urine Mucus Few /HPF (NONE-FEW) Urine Opiates Screen Negative Urine Barbiturates Screen Negative Ur Tricyclic Antidepressants Screen Negative Urine Phencyclidine Screen Negative Urine Amphetamines Screen Negative Urine Benzodiazepines Screen Negative Urine Cocaine Screen Negative Urine Cannabinoids Screen Negative Toxicology Test 04/01/18 05:53 04/01/18 06:35 Salicylates Level < 10 mg/L Salicylate Last Dose Date unk Acetaminophen Level < 10 ug/ml Serum Alcohol < 10 mg/dl Urine Opiates Screen Negative Urine Barbiturates Screen Negative Ur Tricyclic Antidepressants Screen Negative Urine Phencyclidine Screen Negative Urine Amphetamines Screen Negative Urine Benzodiazepines Screen Negative Urine Cocaine Screen Negative Urine Cannabinoids Screen Negative Urinalysis Test 04/01/18 06:35 Urine Color Yellow Urine Clarity Slightly-cloudy Urine pH 5.0 pH (4.8-9.5) Urine Specific Redig 1.021 Urine Protein Negative mg/dL (NEGATIVE) Urine Glucose (UA) Negative mg/dL (NEGATIVE) Urine Ketones Negative mg/dL (NEGATIVE) Urine Blood Negative (NEGATIVE) Urine Nitrite Negative (NEGATIVE) Urine Bilirubin Negative (NEGATIVE) Urine Urobilinogen Negative mg/dL (0.2-1.9) Urine Leukocyte Esterase Negative (NEGATIVE) Urine RBC 6 /HPF (0-2/HPF) Urine WBC 2 /HPF (0-5/HPF) Urine Squamous Epithelial Cells Few /LPF (</=FEW) Urine Transitional Epithelial Cells Few /LPF (NONE-FEW) Urine Bacteria Negative /HPF (NONE-FEW) Urine Hyaline Casts Few /LPF (NONE-FEW) Urine Mucus Few /HPF (NONE-FEW) ED Course/Re-evaluation ED Course 04/01/2018 7:31:50 am is discussed with Dr. Shaw psychiatrist on-call, who accepts the patient for admission after a an unremarkable EKG is performed. Decision to Disposition Date: Apr 01, 2018 Decision to Disposition Time: 05:45 Date of Report: Apr 01, 2018 Patient Detained By: Law Enforcement 24hr Mental Health Eval By: Dr. Alphonse Sanz Date Patient Detained: Apr 01, 2018 Time Patient Detained: 05:02 Date Custodial Expires: Apr 06, 2018 Time Custodial Expires: 05:02 Legal Status: Police Hold: No Legal Status: Residence: [facility] Resident Assessment Data Provided By: Patient, Other Source Chief Complaint: Suicidal ideation Diagnosis: Depression with suicidal ideation Metastatic basal cell carcinoma Risk Formulation: Patient with high risk behavior, planned on using a firearm to commit suicide. Secondary plan was to induce police to shoot him. Since he is unable to bring himself to shoot himself. Current Dangerous Risk Assess: Current Suicide Ideation Current Risk Summary: Patient demonstrating very high risk behavior with a firearm. He is requesting to go home. I do not think that he is safe to go home. His prison will be upheld. He demonstrated very high risk behavior. He is severely depressed over his metastatic cancer. He recently saw a radiation oncologist with plans for extensive radiation therapy, which will make him very sick. Patient stopped his chemotherapy treatment because he felt fatigued and tired and lost 50 pounds. He anticipates that his radiation treatment. We'll make him feel as bad. 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 Depart Departure Latest Vital Signs Vital Signs Date Time Temp Pulse Resp B/P (MAP) Pulse Ox O2 Delivery O2 Flow Rate FiO2 04/01/18 08:30 ???/??? (1665) 04/01/18 07:20 ??? 88 04/01/18 05:16 97.6 20 Room Air Impression: Primary Impression: Depression with suicidal ideation Additional Impressions: Metastatic basal cell carcinoma Pancytopenia Condition: Improved Disposition: XFER TO [facility] Problem Qualifiers ALPHONSE SANZ DO Apr 01, 2018 05:35
[2018-04-01] MEDS ORDERED: LORazepam 1 MG TAB PO ONE (06:20)
[2018-04-01] MEDS ORDERED: OLANZapine ZYDIS ODT 5MG TABDP PO ONE (06:20)
[2018-04-01] MEDS ORDERED: diphenhydrAMINE 25 MG CAP PO ONE (06:25)
[2018-04-01 06:45] LABS: PLATELET COUNT, AUTOMATED 62 K/uL (150-450)
--- NOTE | 2018-04-01 07:52 | EKG ---
FACILITY: [facility] - [place] PATIENT NAME: ANGELITA BECERRA : [id number] MR: [id number] V: [id number] EXAM DATE: ORDERING PHYSICIAN: ALPHONSE CHRISTIAN TECHNOLOGIST: MARBELLA Test Reason : PSYCH Blood Pressure : / mmHG Vent. Rate : 073 BPM Atrial Rate : 073 BPM P-R Int : 150 ms QRS Dur : 090 ms QT Int : 440 ms P-R-T Axes : 057 024 055 degrees QTc Int : 484 ms Sinus rhythm Possible biatrial enlargement Prolonged QT Abnormal ECG No previous ECGs available Confirmed by ANANTH VALENTINO ([id number]) on 04/01/2018 2:40:31 PM Referred By: ANAHI Confirmed By:ANANTH VALENTINO
[2018-04-01] MEDS ORDERED: POLY10DR22 OP (08:09)
[2018-04-01] MEDS ORDERED: [UNRECOGNIZED DRUG - CODE] TP (08:09)
[2018-04-01] MEDS ORDERED: POLY1DRO10 OP (08:09)
[2018-04-01] MEDS ORDERED: LOR1 PO (11:42)
[2018-04-02] MEDS ORDERED: MULT-1379 PO (12:03)
[2018-04-02] MEDS ORDERED: BENZ68FO TP (12:04)
== END 2018-04-01 09:00 ==
LOC: ER 05:36
DX: F32.9 Major depressive disorder, single episode, unspecified (principal); R45.851 Suicidal ideations; C44.91 Basal cell carcinoma of skin, unspecified; C79.9 Secondary malignant neoplasm of unspecified site; D61.818 Other pancytopenia; R94.31 Abnormal electrocardiogram [ECG] [EKG]
CPT/HCPCS: 36415; 80305; 81001; 83735; 84443; 85025; 93005; 99284; G0480; 80320; 80329; 82040; 82247; 82310; 82374; 82435; 82565; 82947; 84075; 84132; 84155; 84295; 84450; 84460; 84520

== ENCOUNTER 2018-04-01 07:51 | Inpatient (IN) | payer MEDICARE, OTHER ==
[2018-01-22 19:25] VITALS: Ht 182.9 cm; Wt 84.4 kg
[~2018-04-01] VITALS: Ht 182.9 cm; Wt 84.4 kg
[2018-04-01] MEDS ORDERED: POLY1DRO10 OP (08:09)
[2018-04-01] MEDS ORDERED: [UNRECOGNIZED DRUG - CODE] TP (08:09)
[2018-04-01] MEDS ORDERED: POLY10DR22 OP (08:09)
[2018-04-01] MEDS ORDERED: MAG HYD/AL HYD/SIMETH 30ML UDC PO PRN (08:40)
[2018-04-01] MEDS: MULTIVITAMINS TAB PO SCH (09:00)
[2018-04-01 09:04] VITALS: BP 96/67
[2018-04-01] MEDS ORDERED: LOR1 PO (11:42)
[2018-04-01 13:31] VITALS: BP 125/72
[2018-04-01] MEDS ORDERED: HYPROMELLOSE 0.4% LUB 15ML BTL OS PRN (15:35)
[2018-04-01] MEDS ORDERED: LORazepam 0.5 MG TAB PO PRN (15:50)
--- NOTE | 2018-04-01 16:01 | BHS - Psychiatric Evaluation ---
ER - Title 25 MHE Evaluation Title 25 Evaluation Patient Detained By: Physician (Upheld by Dr Dion Sanz), Law Enforcement (Intiated by NADER) Referral Source: Professional: Law Enforcement Date Patient Detained: Apr 01, 2018 Time Patient Detained: 05:02 Date Usp Expires: Apr 06, 2018 Time Usp Expires: 05:02 Legal Status: Police Hold: No Legal Status: Residence: [facility] Resident, State Resident Assessment Data Provided By: Patient, Law Enforcement ([id number]), Other Source ([facility] Professional staff) HPI/ROS: From Dr. Dion Sanz, ER Physician, "72-year-old male brought in by police on emergency retirement. Patient textedhis son that he wanted to and plan to shoot himself with his firearm. He apparently was unable to bring himself to do it and then was planning to have the police shoot him. Patient drove to the police station was sitting in a parking lot. The firearm on the seat. He was anticipating confronting officers and being shot. Patient has metastatic basal cell cancer. He was seen recently by radiation oncology. He was anticipating an extensive course of radiation treatment, which I think is contributing to his depression. Patient states that he has Aspergers syndrome and has moments of frustration and agitation." Admit due to SI or Attempt: Yes Suicide Plan: Has Plan with Access Alcohol or Drugs Involved: No Is Patient Info Reliable: Yes Is Collateral Info Reliable: Yes Current Home Psych Meds: No psychiatric medications. Mental Status Exam General Appearance: Cooperative Speech: Clear, Spontaneous; No Normal Rate (Speaks very quickly and emphatically.) Mood: Dysthmic/Depressed Affect: Sad, Anxious Thought Process: Goal Directed Thought Content: Suicidal Ideation (Denies suicidal ideation, says he has "stupid thinking, but I don't harm people. I thought about the police shooting me, but I did not point or wave a gun at them. It was on the seat beside me.") Cognition: Alert & Oriented-Person, Alert & Oriented-Place; No Ykyfk-Zqscniin-Eqahpqxyo (Some minimization of his actions at the police station, likely in part due to severity of his health situation and current emotional destabilization.) Memory: Immediate, Recent Insight Judgment: Poor (Extremely poor judgement.) Hallucinations: Denies Delusions: Denies Current Risk & History Current Dangerous Risk Assessm: Current Suicide Ideation (Denies, see above.) Past Dangerous Risk Assessm: Suicide Ideation-last 6mo (Denies) Previous Suicide Attempt: No Previous Attempt Previous Psychiatric Illness: Yes (Acknowledges some depression associated with his age and terminal illness. ) Previous Psychiatric Treatment: Yes (Says yes, but does not provide good detail about this at this time. ) Risk Assessment & Disposition Evaluated Risk Assessment: From Dr. Dion Sanz, "Patient with high risk behavior, planned on using a firearm to commit suicide. Secondary plan was to induce police to shoot him. Since he is unable to bring himself to shoot himself. 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 Dion Sanz,"Patient demonstrating very high risk behavior with a firearm. He is requesting to go home. I do not think that he is safe to go home. His retirement will be upheld. He demonstrated very high risk behavior. He is severely depressed over his metastatic cancer. He recently saw a [facility] oncologist with plans for extensive radiation therapy, which will make him very sick. Patient stopped his chemotherapy treatment because he felt fatigued and tired and lost 50 pounds. He anticipates that his radiation treatment. We'll make him feel as bad. 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
[2018-04-01] MEDS: PATIENT'S OWN MED OS SCH ×2 (17:07→20:44)
[2018-04-01 20:54] VITALS: BP 118/72
[2018-04-02 05:56] VITALS: BP 109/70
[2018-04-02] MEDS: ARTIFICIAL TEARS OINT 3.5 GM OS PRN ×2 (06:43→08:31)
[2018-04-02] MEDS ORDERED: NEOMYCIN/POLYMYX/BACITR OINT 1 PACKET TP PRN (08:00)
[2018-04-02] MEDS: MULTIVITAMINS TAB PO SCH (08:30)
[2018-04-02] MEDS: PATIENT'S OWN MED OS SCH ×2 (08:31→14:10)
--- NOTE | 2018-04-02 09:58 | SCHAAF H&P ---
DATE OF ADMISSION: April 01, 2018 ATTENDING PHYSICIAN Buddy Shaw MD Patient was seen at approximately 1000 hours on April 01, 2018, for note concerning this dictation. PRESENTING PROBLEM, CHIEF COMPLAINT "I guess I was being stupid." HISTORY OF PRESENT ILLNESS This is a very pleasant 72-year-old male who was emergency detained after having thoughts of suicide by freelance copywriter. Patient apparently had contacted his son-in-law and told him that he was intending on taking his life with a firearm. Patient then reported he could not do this and drove to the police station and sat in the parking lot contemplating getting police officers in an altercation so he would be killed. Patient was emergency detained, brought to the emergency room after welfare check was called. Patient tearful upon interview in the emergency room. However, was pleasant with overall admission. During initial admission process, patient indicated significant stressors in his life. Patient reports "I am getting old" and this is "a new thing for me". Patient reports "I have cancer", referring to some what appears to be advanced basal cell cancer according to notes with high probability of distant metastasis. Patient goes on to say that he again was "being stupid" regarding the night before admission and that he had "no one to talk to". Patient then goes on to say that he is very close with his family. He just did not want to bother anyone and, in fact, patient is living with multiple members of extended family currently in the [facility]. 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 Patient goes on to say "I had a blessing from the [employer] roman catholic two years ago and I promised the kenyetta upstairs I would not kill myself". In regards to patient's advancing cancer, which was once again becoming under treatment, patient does indicate a desire to continue with treatment, which will initially take place with radiation treatment. Patient has recently started being followed again here at [facility]. Patient reports he "watched my sister three years ago from cancer and it was terrible". When asked about depressive symptoms, patient reports his appetite is okay and he states he may be maintaining his weight fine. Some previous notes indicate that patient may have lost a considerable amount of weight, presumably related to treatment for cancer in the past as well as advancing cancer and a possible cachectic condition. However, patient denies any recent weight loss. He reports his energy has been down. He reports his concentration is possibly impaired as well. Patient reports he remains interested in family stuff, although he has noted recently that he is short on energy and air at times and this is likely related to pancytopenic condition, which again is likely related to advancing cancer. Patient does admit to thinking about suicide prior to admission, resulting in his emergency detainment but reports not thinking this way now. He reports overall his sleep has been good and his mood is quickly improving since being on the Unit. Patient denies any history of tracie, psychosis, panic attacks, PTSD, OCD or other symptoms of psychiatric concern. MENTAL HEALTH HISTORY The patient has never been in an inpatient unit in the past. He has never had any formal psychiatric care. 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 Patient has never been on psychiatric meds with the exception of low-dose benzodiazepines recently in an effort to get patient used to wearing constraining mask for radiation treatment. It is notable that patient had a dose of Ativan in close proximity to this admission. However, it is doubtful that this in any way imparted his current suicidal thoughts. FAMILY PSYCHIATRIC HISTORY The patient reports alcohol and drug use in multiple "cousins" including "a lot of them". However, no suicide. Patient reports his father was a practicing physician and denies any other psychiatric concerns in the family. PAST MEDICAL HISTORY Significant for advanced what appears to be basal cell carcinoma according to notes, which is ongoing at this time, and likely having multiple distant metastasis. Patient also suffering from ongoing pancytopenia, which is likely related again to the advancing cancer. ALLERGIES TYLENOL #3 with CODEINE and denies any other allergies. SOCIAL HISTORY The patient was born in [place] and raised there. Parents were at the time of his . Patient reports two younger sisters it is believed. Once is biological, one was adopted. 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 Patient reports being an [employer] himself. He has been twice, the second time for 33 years. Patient has to daughters and both of which live here in town. Patient is a member of [employer]. Patient notably one year ago moved to [place] with his and is currently with his two daughters, one son-in-law and four grandchildren in the home. Patient reports this was a logical decision and they have a big home together and they all agreed to live together and they get along well. Patient reports he had a good childhood as well. SUBSTANCE ABUSE HISTORY Unremarkable. PHYSICAL EXAMINATION Please see emergency room note. Notable for a 72-year-old male, depressed appearing at time of admission. Vital signs at the time of admission: Temperature 97.6, pulse 89, respiratory rate 20, blood pressure 127/78 and pulse oximetry 98% on room air. Patient cooperative. LABORATORY DATA CBC notable for white blood cells low at 2.1, RBCs low at 2.64, hemoglobin and hematocrit low at 8.0 and 25.5, MCV 96.4, platelet count low at 62. Chemistry panel notable for random glucose mildly elevated at 148, magnesium 2.3 and elevated and total bilirubin 1.6 and elevated. Urinalysis overall unremarkable. Few urine red blood cells present. Toxicology screen negative for substances of abuse and a nondetectable serum alcohol level. MENTAL STATUS EXAMINATION GENERAL APPEARANCE, BEHAVIOR AND ATTITUDE: This is very pleasant and cooperative 72-year-old male making good eye contact. Minimal periods of tearfulness when talking about the love of his family. Patient notably having some advanced basal cell cancer on the left side of face and left side of neck. Patient very cooperative and pleasant. Appears to be an accurate historian overall. No bizarre mannerisms or tics. SPEECH: Within normal limits. Regular rate, rhythm, volume and tone. MOOD: Described as depressed and anxious concerning ongoing multiple stressors, although patient also reporting his mood is quickly improving and he was having "foolish thoughts". AFFECT: Mildly constricted to full at times and overall mood-congruent. THOUGHT PROCESSES: Logical and goal-directed, no loose associations or flight of ideas. THOUGHT CONTENT: Free of auditory or visual hallucinations, ideas of reference, thought broadcastings, delusions, obsessions or compulsions. Patient admitting to brief suicidal thoughts prior to admission. Denying homicidal ideations. SENSORIUM: Clear. COGNITION: Alert and oriented to person, place, time and situation. MEMORY: Immediate, recent and remote estimated intact. INTELLIGENCE: Historically estimated to be average to above based on interview. INSIGHT AND JUDGMENT: Considered to be limited only by multitude of current identifiable stressors. ASSESSMENT This is a pleasant cooperative 72-year-old male who is currently emergency detained after voicing suicidal thoughts with plan. We will continue to evaluate and make contact with patient's family members, many of which he lives with, and evaluate situation. Patient continues to verbalize a desire to continue treatment here at [facility] for advanced carcinoma. Patient is not wanting to take medications at this time for depression, which may be beneficial. However, SSRIs could inhibit platelet function as well as the use of mirtazapine could also accelerate a granulocytosis. At this time, however, patient not wanting to take any medications with the exception of low-dose benzodiazepines if necessary for ongoing treatment of carcinoma. We will continue to evaluate. DIAGNOSES 1. Adjustment disorder with depressed mood, rule out depression secondary to general medical condition. 2. Advanced cancer and limitations from pancytopenia. 3. Medical stressors, severe. Patient reporting supportive family. . PLAN 1. Admit to the Unit. 2. Necessary precautions will be implemented. 3. The patient will participate in individual and group therapy. 4. Medications will be addressed accordingly and looked into. Again, refer to caution regarding medications such as mirtazapine or SSRIs. 5. Collateral information to be obtained as necessary. 6. Estimated length of stay 3-5 days. It is not likely patient will need a hearing at this time for further involuntary stay at the hospital. MTDD
[2018-04-02 10:30] VITALS: BP 104/40
[2018-04-02] MEDS ORDERED: MULT-1379 PO (12:03)
[2018-04-02] MEDS ORDERED: BENZ68FO TP (12:04)
[2018-04-02 14:20] VITALS: BP 112/52
[2018-04-02 17:10] VITALS: BP 116/60
--- NOTE | 2018-04-03 09:39 | SCHAAF DISCHARGE ---
DATE OF ADMISSION: April 01, 2018 DATE OF DISCHARGE: April 02, 2018 ATTENDING PHYSICIAN Buddy Shaw MD The patient was seen at approximately 09:00 hours on March 2018 for note concerning this dictation. FINAL DIAGNOSES 1. Adjustment disorder with anxious and depressed mood. 2. Rule out depression secondary to general medical condition. 3. Advanced cancer and pancytopenia. 4. The patient noted to have supportive family. REASON FOR ADMISSION This is a very pleasant 72-year-old male. Please refer to History and Physical for full details concerning admission. The patient noted to take a very active role in his treatment here at the hospital, talking to family members. The patient's family members expressed no reservations about the patient returning home and to pursue outpatient appointment with therapist. The patient's family members reporting that events leading up to the patient's admission may have been triggered in some ways to panic like symptoms which may be exacerbated by current hypoxic state on over exertion in this patient with pancytopenia. It is also possible that patient's treatment with 1 mg of Ativan during evaluation and treatment of basal cell carcinoma could potentially lead to this further hypoxia and anxious state as well, although it is unlikely. Will continue, however, to use only limited amounts of Benzodiazepines as needed for treatment of carcinoma. In that regard, the patient did not want to try any medications while on the unit and it is notable that in the future if SSRIs are considered, that platelet inhibitory affects of SSRIs must be taken into consideration in weighing risk vs. benefits. Another option would be Mirtazapine at night for potential weight gain and anxiolytic and antidepressant effects. However, furthering any agranulocytosis type condition must be weighed as well. The patient demonstrating no symptoms of panic while on the unit. The patient was appearing short of breath at times on exertion, but patient overall interacting well, maintaining clear concentration. The patient referred to events leading up to admission as "stupid" and notably interacting very well with family members on the unit. The patient exhibiting no parasuicidal behaviors and agreed to outpatient therapy. The patient adamantly denying any suicidal ideation and voicing a desire to continue treatment with cancer center. PHYSICAL EXAMINATION Please see emergency room note. Notable for 72-year-old male with advanced basal cell carcinoma on the left side of his face and neck. Vital signs at the time of admission: Temperature 97.6, pulse 89, respiratory rate 20, blood pressure 127/78 and pulse oximetry 98% on room air. Vital signs at the time of discharge: Temperature 99.2, pulse 70, respiratory rate 18, blood pressure 104/40 and asymptomatic and pulse oximetry 93% on room air. LABORATORY DATA CBC upon admission notable for WBC low at 2.1, RBCs low at 2.64, hemoglobin and hematocrit low as well at 8 and 25.5 respectively, MCV slightly elevated at 96.4, platelet count low at 62,000. Chemistry panel notable for magnesium elevated at 2.3, total bilirubin elevated at 1.6. TSH 3.1. Urinalysis overall unremarkable with the exception of urine red blood cells present at 6. Toxicology screen negative and a nondetectable serum alcohol level at the time of admission. MENTAL STATUS EXAMINATION GENERAL APPEARANCE, BEHAVIOR AND ATTITUDE: This is very cooperative, pleasant 72-year-old male, interacting well with this provider and other treatment team staff throughout his stay. No psychomotor agitation or retardation. No periods of tearfulness, interacting well with family members present at time of discharge interview. No SPEECH: Within normal limits. Regular rate, rhythm, volume and tone. MOOD: Described as okay and good. AFFECT: Full at times and mood-congruent. THOUGHT PROCESSES: Logical and goal-directed, no loose associations or flight of ideas. THOUGHT CONTENT: Free of auditory or visual hallucinations, ideas of reference, thought broadcastings, delusions, obsessions or compulsions. The patient is adamantly denying suicidal ideation, denying homicidal ideation. SENSORIUM: Clear. COGNITION: Alert and oriented to person, place, time and situation. MEMORY: Immediate, recent and remote was estimated intact. INTELLIGENCE: Average to above, based on interview. INSIGHT AND JUDGMENT: Considered grossly intact and appropriate for ongoing outpatient management. RESULTS OF TESTING Imaging: None. Laboratory data: See above. Psychological testing: Not done. CONSULTATIONS None. TREATMENT Patient remained on home medications, participated in individual and group therapy. HOSPITAL COURSE The patient was admitted for an acute exacerbation of anxiety and depressive concerns, likely related to overwhelming identifiable stressors and potentially exacerbated by hypoxic state. The patient quickly improved. The patient interacting well with his family, as notable he has very close family support. They had no reservations about patient discharging. The patient exhibiting no parasuicidal behaviors on the floor. CONDITION OF PATIENT ON DISCHARGE Stable. Considered a minimal risk to himself or others, appropriate for outpatient care. DISPOSITION The patient was discharged to home. He would follow up with outpatient therapy appointment. He would continue to follow with cancer center. DISCHARGE MEDICATIONS The patient would continue home medications which included: Lorazepam 0.5 to 1 mg p.o. p.r.n. for anxiety and help with treatment in cancer center. The patient would agree to use limited amounts as this may exacerbate hypoxic state when under exertion. The patient can take Lacri-Lube artificial tears, remain on Natural Balance tears as well and antibiotic ointments left to apply to left eye as directed. The Multivitamin with Minerals daily as well. The risks, benefits and alternatives of the above discharge plan were discussed. Informed consent was given to proceed with the above discharge plan by this competent patient and the patient's family members present at time of discharge. WANDY
== END 2018-04-02 18:55 | disposition home or self-care (01) | DRG 882 ==
LOC: BHS 07:51
PROVIDERS: ADMIT Psychiatry & Neurology Psychiatry; ATTEND Psychiatry & Neurology Psychiatry
DX: F43.23 Adjustment disorder with mixed anxiety and depressed mood (principal); R45.851 Suicidal ideations; D61.818 Other pancytopenia; F06.31 Mood disorder due to known physiological condition with depressive features; R09.02 Hypoxemia; F84.5 Asperger's syndrome; C44.41 Basal cell carcinoma of skin of scalp and neck; R48.0 Dyslexia and alexia; Z92.3 Personal history of irradiation

== ENCOUNTER → 2018-05-17 | Outpatient (CLI) | payer MEDICARE ==
[2018-01-22 19:25] VITALS: BMI 23.7
[~2018-05-17] MED LIST changes: +BENZ68FO TP; +LOR1 PO; +MULT-1379 PO; +POLY10DR22 OP; +POLY1DRO10 OP; +[UNRECOGNIZED DRUG - CODE] TP
[2018-05-17 09:28] LABS: PLATELET COUNT, AUTOMATED 58 K/uL (150-450)
== END ==
LOC: LAB 08:57
PROVIDERS: ATTEND Surgery
DX: D64.9 Anemia, unspecified (principal)
CPT/HCPCS: 36415; 85025

== ENCOUNTER 2018-06-03 11:30 | Outpatient (RCR) | payer MEDICARE ==
[2018-01-22 19:25] VITALS: BMI 23.7
--- NOTE | 2018-03-26 02:32 | TOBIN CONSULT ---
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 There also appear to be clinical basal squamous cell carcinomas involving the left base of neck and right lower neck/paracentral position. Latter lesions are suspected to be additional independent skin malignancies with nodularity and advancing clinical border, size listed below. HISTORY This is a highly complex 72-year-old gentleman who is referred to me by Dr. Roldan Carlos for discussion of radiation therapy options for locally advanced and recurrent nodular basal cell carcinoma of the face. The majority of the history is relayed directly by the patient, his and son-in-law. Patient has previously lived in [place] as well as the [facility]. He states that three to four years ago he developed an enlarging mass at the base of the left neck, and shortly thereafter also developed a secondary advancing lesion underneath the left eye with subsequent involvement onto the bridge of the nose. Apparently, the patient had an MRI scan of the face which revealed extensive subcutaneous involvement of malignancy. He underwent biopsy of the lesion labeled "left superior medial malar cheek" on 05/24/14. That biopsy was notable for an infiltrative nodular basal cell carcinoma. Patient was under the care of Dr. Rajan Spencer at that juncture, at the [facility]. He was started on Erivedge and continued on that medication for up to one year. Patient states he stopped the medication after 12 months because he had a progressive weight loss of 50 pounds and felt poorly overall. He did have the lesions at the base of the right neck, the left neck, as well as the left malar area back in 2014. There were [id number] small photographs which revealed a lesion just below the left eye measuring approximately 3 x 2 cm in my estimation, from that photo. The tumor, unfortunately, has gradually advanced and enlarged over the last two years. This has produced a black appearance of the subcutaneous tissues beneath the left eye as well as an advancing nodular border onto the bridge of the nose. The tumor intermittently can cause bleeding. The tumor has involved the lower eyelid to the point where the patient cannot fully oppose his eyelids at this juncture. He has separately noticed enlargement of lesion over the base of the left neck, which is significant, as well a second lesion slightly off center to the right. Patient denies any bone pain or headaches. The patient had initial laboratory studies per Dr. Salcido in January, which revealed anemia with a hemoglobin of 7.0, white count 2.5, and platelet count of 52,000. Dr. Salcido is in the process of working up the pancytopenia with additional tests. The patient elected not to have an MRI scan or a PET/CT scan or additional biopsies at his initial consultation, due to financial concerns. He does have Medicare but no supplement, unfortunately. Patient navigator is working closely with him at this time, however, and he is motivated to proceed with appropriate treatment. He did have a CMP in January which was normal. In talking to the patient in the clinic, I learned that he was exposed as a child to a heavy amount of UV exposure from sun lamp. He may have had additional cytotoxic agents which were used at that time for multicystic acne. I believe he had a grandfather who was a GP and was attempting to treat the acne at that time. The patient states that the lesions intermittently bleed and simply will not heal. He denies any recent infections. There is no change in his vision or his weight in the last year. He does have a tightness sensation behind his head intermittently. Patient is living in [place] with his son-in-law and daughter and four grandkids. PAST MEDICAL HISTORY 1. Basal cell carcinoma, left face. 2. Right leg abscess. PAST SURGICAL HISTORY 1. Pilonidal cyst removal. 2. Prior tonsillectomy. FAMILY HISTORY Notable for father who had malignant melanoma. States a sister had breast cancer. SOCIAL HISTORY Patient is . Seen with his and son-in-law today. Retired [employer]. They have two children, four grandchildren. He does not smoke or use alcohol. MEDICATIONS None. ALLERGIES CODEINE. REVIEW OF SYSTEMS Notable for intermittent cough, shortness of breath with exertion, fatigue, easy bruisability, intermittent infections of the left eye. PHYSICAL EXAMINATION GENERAL: Physical examination reveals a pleasant 72-year-old male of thin build. VITALS: Listed in EMR. HEENT: Examination is notable for ulceration with black appearance of the skin extending for a distance of 4 cm beneath the left eye. The left eyelid is pulled down. There does appear to be tumor involvement. The ulcerating area extends from the medial canthus to the lateral canthus with blackish skin discoloration at the base from tumor necrosis. There is advancing nodular edge of the basal cell tumor toward the bridge of the nose, and the full nodular component is comma-shaped and is elevated over the bridge of the nose and extending posteriorly by 3cm with a height of approximately 9 cm, and I would estimate the depth at 5 mm. Intraoral inspection reveals poor dentition, otherwise clear. NECK: Left neck exam reveals no lymphadenopathy; however, there is an ulceration of the skin with surrounding nodularity, which is estimated at 3 x 3 cm with a second satellite area of tumor involvement laterally which extends for 5 mm x 2 cm. There is a third elevated lesion at the base of the right neck, which measures 3.5 cm x 1 cm, with an elevation of 6 mm. There is a slightly reddish appearance of the surrounding skin to the basal cell lesions, but no signs of any active infection or tenderness. No active bleeding at this time. LUNGS: Clear bilaterally. HEART: Regular' no audible murmur. ABDOMEN: No gross organomegaly, mass, or tenderness. EXTREMITIES: No edema or cyanosis. NEUROLOGICAL: Grossly intact. Vision is maintained in both eyes at this time. IMPRESSION This is a pleasant 72-year-old gentleman who has a history of neglected basal cell carcinoma over the left infraorbital location, which unfortunately was not completely resectable back in 2015. He did have an initial response to Erivedge therapy, but developed severe fatigue and weight loss with the medication. The tumor has recurred and appears to be advancing in several locations. There are two locations at the base of the neck that are enlarging at this time, with elevation and advancing borders consistent with aggressive basal cell carcinoma. The main lesion is extending onto the bridge of the nose and also involving the left infraorbital soft tissues, and has now caused a black eschar at the base. RECOMMENDATIONS The patient was advised that his best options would be wide surgical excision with plastic reconstruction (possibility only). He most likely would need a university referral for the level of care necessary for this particular malignancy. His second option would be external beam radiation therapy with photon and/or electronic treatment technique. Radiation therapy could be effectively applied to all three lesions as long as I could clearly identify the target volume on a CT scan or PET/CT scan imaging set. I did take digital photographs today to study the area more extensively in the next 24 hours. Would use either brass bolus or standard bolus technique to bring the radiation dose to the surface. There would be a high risk of cataract formation over the left eye, which would be unavoidable, in my opinion, due to its location. I should be able to spare the lacrimal gland, however, since the tumor is predominantly below the eyelid and extending onto the bridge of the nose. The patient states he would favor the radiotherapy option as opposed to surgery. I was asked for the possibility of control of the tumor, and I would estimate 60% to 70% possibility of tumor control at the two-year interval. I would proceed to a radiation dose of 70 Gy at standard fractionation over seven weeks. Radiation martin will be monitored carefully, and dose and field adjustments may be necessary throughout the treatment program for full effect and to avoid any significant side effects. At the end of our consultation, the patient stated he would clearly like to proceed with the radiation program. To that end, I will proceed with the CT simulation, hopefully within the next 24 hours. Aquaplast mask will be fabricated for head stabilization. Proceed for the first phase to 50 Gy [address] Salcido will be seeing the patient again in two weeks to review his findings for the pancytopenia work. Thank you for the referral. Please do not hesitate to contact me if there are any questions regarding the above recommendations. I should know by next Thursday whether the patient will need a PET/CT scan to more accurately identify the target volume. Addendum: unable to start tx due to severe clasutrophobia with CT planning. Admitted to [facility] briefly due to severe anxiety. I had staff contact patient as we could change therapy techniques to direct electrons. Treatment vs. no treatment will depend on the patient and family. Will have our navigator reach out to family and patient over the next several weeks for a final decision. Very challenging case. RT MTDD
[2018-03-29 14:19] VITALS: BP 116/80
--- NOTE | 2018-03-30 16:40 | RADIOLOGY IMAGING REPORT ---
FACILITY: [facility] [place] PATIENT NAME: Gaurav Sewell : 1945 MR: [id number] V: [id number] EXAM DATE: ORDERING PHYSICIAN: TODD YAN TECHNOLOGIST: Location: [facility] Patient: Gaurav Sewell : 1945 Visit/Account:[id number] Date of Sevice: 03/29/2018 EXAMINATION: CT Head without intravenous contrast CT Head with intravenous contrast CT Neck without intravenous contrast CT Neck with intravenous contrast HISTORY: Treatment planning. Renal cell carcinoma. TECHNIQUE: Axial CT of the head and neck without and with IV contrast. Sagittal and coronal reformat s. One of the following dose optimization techniques was utilized in the performance of this exam: Autom ated exposure control; adjustment of the mA and/or kV according to the patient's size; or use of an i terative reconstruction technique. Specific details can be referenced in the facility's radiology C T exam operational policy. CONTRAST: 75 mL of IV Isovue-370 COMPARISON: None available. FINDINGS: HEAD: Brain volume: Normal. Ventricles: Negative. Acute ischemic changes: None. Hemorrhage: None. Masses / edema: None. Enhancement: Negative. Alvarado-white: Negative. White matter: Negative. Vessels: Calcified plaque in the carotid siphons. Otherwise negative. Extra-axial: Negative. Calvarium / skull base: Negative. Visualized sinuses / orbits: Severe mucosal thickening in the ethmoid air cells and left maxillary s inus. Leftward nasal septal deviation. 3.0 x 1.6 x 0.6 cm soft tissue in the region of the right lo wer eyelid. NECK: Masses/lesions: Multiple thyroid nodules measuring up to 1.5 cm. Focal skin thickening in the left anterior neck measuring 4 mm in thickness. Airway: Negative. Lymph nodes: Negative. Vessels: Mild calcified plaque in the carotid arteries. Musculoskeletal / Body wall: Multilevel degenerative disc disease and facet hypertrophy in the cervic al spine. Lytic lesions in the right T4, T5, and T6 vertebral bodies measuring up to 1.8 cm. Visualized orbits / brain / paranasal sinuses: Negative. Upper chest: 5 mm pulmonary nodule in the posterior right upper lobe. 2 pulmonary nodules and the le ft lung apex measuring 3 mm. 4 mm pulmonary nodule in the superior segment of the left lower lobe. Calcified mediastinal lymph nodes. IMPRESSION: 1. 3.0 x 1.6 x 0.6 cm soft tissue in the region of the right lower eyelid. Focal skin thickening in the left anterior neck measuring up to 4 mm in thickness. Possible metastasis or posttreatment orozco ges. 2. No evidence of intracranial metastasis. 3. Lytic lesions in the right T4, T5, and T6 vertebral bodies measuring up to 1.8 cm. Suspicious for osseous metastases. 4. Multiple pulmonary nodules in the upper lungs suspicious for lung metastases. 5. Multiple thyroid nodules measuring up to 1.5 cm. These could be metastases or primary thyroid no dules. 6. Severe mucosal thickening in the ethmoid air cells and left maxillary sinus. Leftward nasal sept al deviation. 7. No comparison exam is available for any of these findings. Report Dictated By: Rudi Payan MD at 03/30/2018 4:10 PM Report E-Signed By: Rudi Payan MD at 03/30/2018 4:36 PM WSN:[id number]
--- NOTE | 2018-03-30 16:54 | RADIOLOGY IMAGING REPORT ---
FACILITY: [facility] [place] PATIENT NAME: Gaurav Sewell : 1945 MR: [id number] V: [id number] EXAM DATE: ORDERING PHYSICIAN: TODD YAN TECHNOLOGIST: Location: [facility] Patient: Gaurav Sewell : 1945 Visit/Account:[id number] Date of Sevice: 03/29/2018 ADDENDUM #1 Correction: History is basal cell carcinoma, not renal cell carcinoma. Skin thickening in the left (not right) lower eyelid and left anterior neck there is therefore most likely basal cell carcinoma. Possible bone lesions in the right T4, T5 and T6 vertebral bodies and multiple pulmonary nodules coul d still be metastases, possibly from a 2nd primary tumor since basal cell carcinoma does not typicall y metastasize widely. Thyroid ultrasound is recommended to evaluate the thyroid nodules if these have never been evaluated. Report Dictated By: Rudi Payan MD at 04/01/2018 8:36 PM Report E-Signed By: Rudi Payan MD at 04/01/2018 8:42 PM ORIGINAL REPORT EXAMINATION: CT Head without intravenous contrast CT Head with intravenous contrast CT Neck without intravenous contrast CT Neck with intravenous contrast HISTORY: Treatment planning. Renal cell carcinoma. TECHNIQUE: Axial CT of the head and neck without and with IV contrast. Sagittal and coronal reformat s. One of the following dose optimization techniques was utilized in the performance of this exam: Autom ated exposure control; adjustment of the mA and/or kV according to the patient's size; or use of an i terative reconstruction technique. Specific details can be referenced in the facility's radiology C T exam operational policy. CONTRAST: 75 mL of IV Isovue-370 COMPARISON: None available. FINDINGS: HEAD: Brain volume: Normal. Ventricles: Negative. Acute ischemic changes: None. Hemorrhage: None. Masses / edema: None. Enhancement: Negative. Alvarado-white: Negative. White matter: Negative. Vessels: Calcified plaque in the carotid siphons. Otherwise negative. Extra-axial: Negative. Calvarium / skull base: Negative. Visualized sinuses / orbits: Severe mucosal thickening in the ethmoid air cells and left maxillary s inus. Leftward nasal septal deviation. 3.0 x 1.6 x 0.6 cm soft tissue in the region of the right lo wer eyelid. NECK: Masses/lesions: Multiple thyroid nodules measuring up to 1.5 cm. Focal skin thickening in the left anterior neck measuring 4 mm in thickness. Airway: Negative. Lymph nodes: Negative. Vessels: Mild calcified plaque in the carotid arteries. Musculoskeletal / Body wall: Multilevel degenerative disc disease and facet hypertrophy in the cervic al spine. Lytic lesions in the right T4, T5, and T6 vertebral bodies measuring up to 1.8 cm. Visualized orbits / brain / paranasal sinuses: Negative. Upper chest: 5 mm pulmonary nodule in the posterior right upper lobe. 2 pulmonary nodules and the le ft lung apex measuring 3 mm. 4 mm pulmonary nodule in the superior segment of the left lower lobe. Calcified mediastinal lymph nodes. IMPRESSION: 1. 3.0 x 1.6 x 0.6 cm soft tissue in the region of the right lower eyelid. Focal skin thickening in the left anterior neck measuring up to 4 mm in thickness. Possible metastasis or posttreatment orozco ges. 2. No evidence of intracranial metastasis. 3. Lytic lesions in the right T4, T5, and T6 vertebral bodies measuring up to 1.8 cm. Suspicious for osseous metastases. 4. Multiple pulmonary nodules in the upper lungs suspicious for lung metastases. 5. Multiple thyroid nodules measuring up to 1.5 cm. These could be metastases or primary thyroid no dules. 6. Severe mucosal thickening in the ethmoid air cells and left maxillary sinus. Leftward nasal sept al deviation. 7. No comparison exam is available for any of these findings. Report Dictated By: Rudi Payan MD at 03/30/2018 4:49 PM Report E-Signed By: Rudi Payan MD at 03/30/2018 4:49 PM SN:[id number]
--- NOTE | 2018-04-13 23:33 | ONCOLOGY FOLLOW UP NOTE ---
EVENT DATE: April 13, 2018 CHIEF COMPLAINT/REASON FOR VISIT Patient is here to go over the results of his recent CT scan of the head and neck. HISTORY OF PRESENT ILLNESS Patient is a 72-year-old gentleman who was recently evaluated by Dr. Salcido for pancytopenia. During his assessment, he was noted to have extensive tumor recurrence of advanced basal cell carcinoma involving soft tissues beneath the left orbit. The malignancy is an ulcerating lesion which involves the left lower eyelid. It extends onto soft tissues in the left infraorbital position as well as onto the left bridge of nose. Tumor size roughly 3 x 4 cm with mixed areas of depression and elevation. He has additional lesions at the base of left neck consistent with an exophytic skin carcinoma and a third smaller lesion over the base of the right neck. The CT scan dated 03/29/18 revealed soft tissue mucosal thickening measuring 3 cm x 1.6 cm x 0.6 cm in the region of the left lower eyelid. There was a typo on the report mixed up the left versus right lower eyelid. The corrected report should read left lower eyelid. Also noted was mucosal thickening along the ethmoid air cells in the left maxillary sinus. Also noted was thickening along the left anterior neck measuring 4 mm in thickness and multiple thyroid nodules up to 1.5 cm. Confusing the picture, however, there are lytic lesions described in the right T4, T5, and T6 vertebral bodies measuring up to 1.8 cm. The patient, however, is not symptomatic with any pain in the upper T-spine. He does have pain in the cervical spine which is most likely related to degenerative disk disease and facet hypertrophy. Also, ill defined is presence of multiple pulmonary nodules measuring up to 5 mm in the posterior right upper lobe, 3 mm in the left lung apex, and 4 mm in the superior segment of the left lower lobe. Calcified mediastinal lymph nodes were appreciated. The report was read by Dr. Rudi Payan in Radiology. The CT of the head on the same day did note correction with an addendum of the prior report stating that skin thickening is noted of the left lower eyelid and left lower neck. The radiologist questioned appropriately whether the bone lesions were from separate malignancy since basal cell does not metastasize frequently. The patient is here to go over treatment options. He did have severe claustrophobia with the initial Aquaplast mask fabrication and head and neck CT scan. MEDICATIONS 1. Ativan p.r.n. 2. Neosporin. 3. Multivitamins. 4. Triple antibiotic ophthalmic drops t.i.d. (polymyxin/trimethoprim). PAST MEDICAL HISTORY 1. Basal cell carcinoma, left face. 2. Right leg abscess. PAST SURGICAL HISTORY 1. Pilonidal cyst removal. 2. Prior tonsillectomy. FAMILY HISTORY Notable for father who had malignant melanoma. States a sister had breast cancer. SOCIAL HISTORY Patient is . Seen with his and son-in-law today. Retired [employer]. They have two children, four grandchildren. He does not smoke or use alcohol. MEDICATIONS None. ALLERGIES CODEINE. REVIEW OF SYSTEMS Notable for intermittent cough, shortness of breath with exertion, fatigue, easy bruisability, intermittent infections of the left eye. PHYSICAL EXAMINATION HEENT: Confirms ulcerating tumor mass involving the left lower eyelid extending onto the left malar skin and left bridge of nose, measuring 4 x 3 cm. NECK: There is a second raised lesion at the base of the left neck which may be unrelated, measuring 2.3 x 3 cm. There is a small lesion at the base of the right neck measuring 8 mm x 4 cm in length. LUNGS: Clear. IMPRESSION 1. Recurrent basal cell carcinoma of the skin. 2. Pancytopenia of uncertain etiology. Workup by Dr. Salcido in progress. 3. 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 PLAN 1. Proceed with electron simulation today to the neglected skin cancer over the left lower eyelid and bridge of nose with a custom template fabrication. 2. PET CT scan at [facility] in [place] within the next seven days. 3. Add additional martin to the lower neck based on radiographic findings. Patient clearly indicated that he wished to proceed with the treatment without hesitation. All questions were answered to his satisfaction over a 90-minute reassessment visit today. WANDY
[2018-04-26 11:50] VITALS: BP 113/69
[2018-04-26 12:26] LABS: PLATELET COUNT, AUTOMATED 60 K/uL (150-450)
[2018-04-28 09:08] VITALS: BP 128/69
--- NOTE | 2018-04-28 12:05 | RADIOLOGY IMAGING REPORT ---
FACILITY: [facility] PATIENT NAME: Gaurav Sewell : 1945 MR: [id number] V: [id number] EXAM DATE: ORDERING PHYSICIAN: TODD YAN TECHNOLOGIST: Location: [facility] Patient: Gaurav Sewell : 1945 Visit/Account:[id number] Date of Sevice: 04/28/2018 Exam type: SOFT TISSUE HEAD NECK History: Basal cell carcinoma acute swelling left side of neck last evening Comparison: CT soft tissue the neck March 29, 2018. Findings: In zone one on the right there is a 1 cm ovoid hypoechoic mass in addition to 1.1 cm ovoid hypoechoic mass. This could are present lymph nodes although no fatty steven are identified there are multiple bilateral thyroid nodules many appear cystic. There is a complex cystic and solid nodule in the mid right lobe measuring 1.9 cm in maximum dimension the largest nodule in the left lo be of the thyroid measures 1.5 cm in diameter and appears mostly cystic with a small solid mural nodu le. In zone three on the right is 1.3 x 60.5 x 1 cm ovoid hypoechoic nodule could represent a lymph node although no fatty hilum is demonstrated In zone four on the right there are multiple small hypoechoic nodules measuring up to 1.2 cm in maxim um dimension which could represent lymph nodes although again no fatty steven demonstrated In zone seven on the right just make the skin is a 1.8 x 3 x 0.3 cm hypoechoic region In zone one on the left is a large area of skin thickening measuring up to 1 cm in thickness this are a appears mildly hypervascular In zone two on the left there is a 7 mm lymph node with a fatty hilum. in zone four and the left is 1.9 cm ovoid hypoechoic nodule. In zone four on the left there is also a 8 mm ovoid hypoechoic nodule which appears to have a fatty hilum and likely represents a lymph node . In zone 1/6 on the left just beneath the skin is a 3 cm x 2.8 cm x 0.6 cm ovoid hypoechoic region wit h hypervascular periphery. This is the location of patient's apparent acute finding. The appearance is nonspecific and could represent an area of hemorrhage or inflammation. IMPRESSION: 1. Multiple hypoechoic masses in both sides of the neck. Some of these may represent lymph nodes. This could be further evaluated with CT of the neck with contrast Multiple bilateral thyroid nodules Ovoid hypoechoic region just beneath the skin on the left zones one/6 which could represent areas of acute hemorrhage or inflammation given the patient's acute findings. Report Dictated By: Disha Gary MD at 04/28/2018 11:34 AM Report E-Signed By: Disha Gray MD at 04/28/2018 12:01 PM WSN:[id number]
--- NOTE | 2018-04-28 13:56 | RADIOLOGY IMAGING REPORT ---
FACILITY: [facility] PATIENT NAME: Gaurav Sewell : 1945 MR: [id number] V: [id number] EXAM DATE: ORDERING PHYSICIAN: TODD YAN TECHNOLOGIST: Location: [facility] Patient: Gaurav Sewell : 1945 Visit/Account:[id number] Date of Sevice: 04/28/2018 EXAMINATION: CT neck with IV contrast HISTORY: Rapid onset left neck swelling. Basal cell carcinoma. TECHNIQUE: Axial soft tissue neck CT with IV contrast. Sagittal and coronal reformats. One of the following dose optimization techniques was utilized in the performance of this exam: Autom ated exposure control; adjustment of the mA and/or kV according to the patient's size; or use of an i terative reconstruction technique. Specific details can be referenced in the facility's radiology C T exam operational policy. CONTRAST: 75 mL of IV Isovue-370 COMPARISON: Soft tissue neck CT dated 03/30/2018. FINDINGS: Masses/lesions: 4.7 x 1.6 x 2.4 cm mass in the left anterior neck at the level of the larynx involvi ng the skin and subcutaneous fat. The adjacent platysma muscle is also thickened. This is worsened co mpared with 03/30/2018. Stable mild focal skin thickening just below the left orbit. Stable mild foca l skin thickening just above the right clavicle. Stable bilateral thyroid nodules. Submandibular and parotid glands are unremarkable. Airway: Negative. Lymph nodes: Stable borderline enlarged right submandibular, right level 3, and left level 4 lymph no gagan measuring 1.2 x 0.8 cm, 0.8 x 0.8 cm, and 1.2 x 0.7 cm respectively (series 2, images 39, 53, and 62). Vessels: Partial retropharyngeal course of the left carotid artery. Calcified plaque in the carotid bulbs, right worse than left. Musculoskeletal / Body wall: Multilevel degenerative disc disease and facet hypertrophy in the cervic al spine. Visualized orbits / brain / paranasal sinuses: Moderate mucosal thickening in the left maxillary sinu s. Partially opacified right posterior ethmoid air cells. Leftward nasal septal deviation. Improved c ompared with 03/30/2018. Upper chest: Negative. IMPRESSION: 1. 4.7 x 1.6 x 2.4 cm mass in the left anterior neck at the level of the larynx involving the skin an d subcutaneous fat. The adjacent platysma muscle is also thickened. Given the rapid onset this is mos t likely infection superimposed upon the basal cell carcinoma. No evidence of abscess. 2. Stable mild focal skin thickening just below the left orbit and above the right clavicle. 3. Stable bilateral thyroid nodules. 4. Stable borderline enlarged right submandibular, right level 3, and left level 4 lymph nodes measur ing 1.2 x 0.8 cm, 0.8 x 0.8 cm, and 1.2 x 0.7 cm respectively (series 2, images 39, 53, and 62). 5. Decreased mucosal thickening in the paranasal sinuses compared with 03/30/2017. Results were called to Fabiana Davidson NP at 04/28/2018 1:33 PM. Report Dictated By: Rudi Payan MD at 04/28/2018 1:23 PM Report E-Signed By: Rudi Payan MD at 04/28/2018 1:53 PM WSN:[id number]
--- NOTE | 2018-04-29 08:11 | ONCOLOGY FOLLOW UP NOTE ---
EVENT DATE: April 28, 2018 CHIEF COMPLAINT New onset of swelling in left neck. HISTORY OF PRESENT ILLNESS The patient is a 72-year old male who is seen today as a work-in. He is currently being treated with radiation for recurrent basal cell carcinoma. He has received one treatment. He describes a fairly sudden onset of swelling over the left neck lesion which occurred at 10 p.m. this last night. There is also surrounding erythema on the left neck lesion as well as the lesion over the right clavicle. He denies any fever or significant pain. ONCOLOGY HISTORY Patient was diagnosed four years ago with basal cell carcinoma on the left side of the face and left neck. At that time, it was considered inoperable. He received treatment with Erivedge, a hedgehog inhibitor, and was treated with that for one year. This was discontinued due to progressive weight loss and overall feeling of malaise. Over the past two years, the tumors have gradually advanced and enlarged. He presented in March 2018 for assessment. He was also noted to have pancytopenia so chemotherapy was not an option. He began radiation treatment on 04/27/18. MEDICAL HISTORY Basal cell carcinoma. SURGICAL HISTORY 1. Pilonidal sinus removal. 2. Tonsillectomy. FAMILY HISTORY Father with melanoma. Sister with breast cancer. SOCIAL HISTORY Patient is . They have two children. 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 He denies any abuse of tobacco, alcohol or illicit drugs. MEDICATIONS 1. Lorazepam p.r.n. 2. Multivitamins. ALLERGIES CODEINE. REVIEW OF SYSTEMS A 12-point review of systems is performed and is negative except as stated above. PHYSICAL EXAM VITAL SIGNS: Blood pressure 128/69, pulse 80, respirations 18, temperature 98.2, O2 sat 97%. GENERAL: Patient is a well-developed, well-nourished male in no acute distress. HEAD: Normocephalic. Ulcerating tumor involving the left lower eyelid extends into the left malar skin and bridge of the nose with mild erythema. Moist mucous membranes. Poor dentition. NECK: Raised lesion at the base of the left neck, which is somewhat ulcerated but not draining. There is a large, slightly fluctuant mass above measuring approximately 5 cm with surrounding erythema. There is also a small lesion over the right clavicle with surrounding erythema. CARDIOVASCULAR: Heart rate regular, 80 per minute without murmur, S3 or S4. LUNGS: Clear bilaterally. EXTREMITIES: No edema. NEURO: Nonfocal. LABS No labs. IMPRESSION The patient is a 72-year old male with recurrent basal cell carcinoma of the skin. He also has pancytopenia of uncertain etiology. Began radiation therapy on April 27, 2018. PLAN 1. Left neck mass. This is a large area with sudden onset beginning at 10 o'clock last night. There is surrounding erythema. Patient was sent for ultrasound, which was inconclusive. He then underwent CT of the neck, showing a 4.7 x 1.6 x 2.4 cm mass in the left anterior neck at the level of the larynx involving the skin and subcutaneous fat. The adjacent platysma muscle is also thickened. Given the rapid onset, this is felt to be most likely infection superimposed upon the basal cell carcinoma. No evidence of abscess. There was also a stable borderline enlarged right submandibular node noted with decreased mucosal thickening in the paranasal sinuses compared with CT scan in March. For this reason, Augmentin 875 mg b.i.d. x10 days is prescribed. He will be evaluated daily. If lesion were to drain, culture and sensitivity would be done. He may also require incision and drainage. 2. Patient will continue daily radiation to the eyelid but not to the neck lesions until resolution of the infection. 3. Pancytopenia. The patient is being scheduled for a bone marrow biopsy per Dr. Salcido. 4. Follow up daily for continued care. [facility]
[2018-04-29 12:38] VITALS: BP 128/72
--- NOTE | 2018-04-29 19:55 | ONCOLOGY FOLLOW UP NOTE ---
EVENT DATE: April 29, 2018 CHIEF COMPLAINT Followup for basal cell carcinoma. HISTORY OF PRESENT ILLNESS Patient is a 72-year-old male who was seen today in followup. He presented on 04/28/18 with acute onset of swelling over the left neck lesion. There was surrounding erythema. Ultrasound of the neck was inconclusive, but CT of the neck showed likely infection superimposed on the known basal cell carcinoma. He was started on Augmentin yesterday. He returns today in followup. He notes some mild tenderness, but no further issues. ONCOLOGY HISTORY Patient was diagnosed four years ago with basal cell carcinoma on the left side of the face and left neck. At that time, it was considered inoperable. He received treatment with Erivedge, a hedgehog inhibitor, and was treated with that for one year. This was discontinued due to progressive weight loss and overall feeling of malaise. Over the past two years, the tumors have gradually advanced and enlarged. He presented in March 2018 for assessment. He was also noted to have pancytopenia, so chemotherapy was not an option. He began radiation treatment on 04/27/18. MEDICAL HISTORY Basal cell carcinoma. SURGICAL HISTORY 1. Pilonidal sinus removal. 2. Tonsillectomy. FAMILY HISTORY Father with melanoma. Sister with breast cancer. SOCIAL HISTORY Patient is . They have two children. 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 He denies any abuse of tobacco, alcohol, or illicit drugs. MEDICATIONS 1. Lorazepam p.r.n. 2. Multivitamin. 3. Augmentin 875 mg b.i.d. for 10 days. ALLERGIES CODEINE. REVIEW OF SYSTEMS A 12-point review of systems is performed and is negative except as stated above. PHYSICAL EXAM VITAL SIGNS: BP 128/72, P 88, R 16, temp afebrile, O2 sat 97%. GENERAL: Patient is a well-developed, well-nourished male in no acute distress. HEAD: Normocephalic, atraumatic. Ulcerating tumor involving the left lower eyelid extends into the left malar skin and bridge of the nose with mild erythema and some scabbing. Moist mucous membranes. Poor dentition. NECK: Raised lesion at the base of the left neck with some crusting noted. No discharge. There is an approximately 5 cm area of swelling above this lesion, but is somewhat smaller. Today, there is less erythema than yesterday. There is also a small lesion over the right clavicle with continued erythema. No discharge noted. CARDIOVASCULAR: Heart rate regular, 86 per minute, without murmur, S3, or S4. LUNGS: Clear bilaterally. EXTREMITIES: No edema. NEUROLOGIC: Nonfocal. LABORATORIES No lab. IMPRESSION The patient is a 72-year old male with recurrent basal cell carcinoma of the skin. He also has pancytopenia of uncertain etiology. Began radiation therapy on April 27, 2018. PLAN 1. Left neck mass. Per CT scan on 04/28/18, there was a 4.7 x 1.6 x 2.4 cm mass in the left anterior neck at the level of the larynx involving the skin and subcutaneous fat. Given the rapid onset, this was felt to be most infection superimposed upon the basal cell carcinoma. He was started on Augmentin 875 mg b.i.d. for 10 days. Today, there is less erythema over this lesion, although erythema over the right clavicular nodule continues. Swelling is much the same and perhaps slightly smaller. He will be reevaluated every day. Radiation to the neck lesions will be held. Will consider culture and sensitivity if the lesion were to drain. 2. Radiation. Continue radiation to the eyelid. 3. Pancytopenia. Patient is being scheduled for bone marrow biopsy at the end of this month. 4. Follow up daily for continued care. [facility]
[2018-05-04 12:55] LABS: PLATELET COUNT, AUTOMATED 63 K/uL (150-450)
--- NOTE | 2018-06-01 12:48 | NUR ---
SW checked in with pt today while he was sitting in the waiting room. When SW asked about how he has been feeling about his anxiety, the pt gave a thumbs up. SW asked " you mean your anxiety is improving?", Pt stated, "No, it's been increasing." SW followed up with pt on this before and after he saw the provider for a follow up. Pt spoke quite a bit about distension between him and his daughter, citing that as the primary cause for anxiety at this time. He added later that he does feel that he has some alliance with his , that she agrees with him regarding their relationship. The pt stated when he feels too overwhelmed, he usually has a "blow up" (he did reference his emotional/behavioral "blow up" toward the beginning of treatment when he was feeling suicidal). The pt states he is worried that he and his daughter will not get along and it was cause another blow up. SW encouraged the pt to continue speaking with his and counselor (Laury) about his anxiety. SW will continue to check in with the pt to find out if there are other needs that can be addressed.
[~2018-06-03 11:30] MED LIST changes: +DEXTROSE 5%(*) 100 ML BAG 100 ML IVPB PRN; +IOPAMIDOL 76% 150 ML INFUS BTL 150 ML ONE; +LIDOCAINE/SOD BICARB 8.4% SYR ID PRN; +NS(*) 0.9% 100 ML BAG 100 ML IVPB PRN; +SILV20CR2 TP
[2018-06-14] MEDS ORDERED: BENZ100C4 PO (13:30)
== END 2018-06-22 ==
LOC: RAON 11:30
PROVIDERS: ATTEND Radiology Radiation Oncology
DX: Z51.0 Encounter for antineoplastic radiation therapy (principal); C44.310 Basal cell carcinoma of skin of unspecified parts of face; E04.1 Nontoxic single thyroid nodule; L85.8 Other specified epidermal thickening; R93.7 Abnormal findings on diagnostic imaging of other parts of musculoskeletal system; R91.8 Other nonspecific abnormal finding of lung field; J34.89 Other specified disorders of nose and nasal sinuses; D61.810 Antineoplastic chemotherapy induced pancytopenia
CPT/HCPCS: 70470; 70491; 70492; 76536; 77290; 77295; 77300; 77331; 77334; 77336; 77412; 85025; G0463; Q9967; 36415; 82040; 82247; 82310; 82374; 82435; 82565; 82947; 84075; 84132; 84155; 84295; 84450; 84460; 84520; 88184; 88185; 88237; 88264; 88280; 99212

== ENCOUNTER 2018-06-14 11:30 | Outpatient (RCR) | payer MEDICARE ==
[2018-01-22 19:25] VITALS: Ht 181.6 cm; Wt 80.9 kg
[2018-03-19 12:22] VITALS: BP 128/80
--- NOTE | 2018-03-19 16:01 | ONCOLOGY CONSULTATION ---
EVENT DATE: March 19, 2018 REFERRING PHYSICIAN Abraham Carter MD REASON FOR CONSULTATION Evaluation and management of melanoma of the face and neck and pancytopenia. HEMATOLOGY/ONCOLOGY Patient is a 72-year-old male who was diagnosed four years ago with melanoma of the left side of the face and left side of the neck and patient at that time was considered inoperable so he did not receive any treatment or resection as patient declined radiation therapy and chemotherapy. Patient moved from [place] to [place] five months ago. He has been seen by Dr. Carter recently for an abscess on the right leg and patient was referred because of his melanoma on the left side of the face below his left eye and left side of the neck. 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 PAST SURGICAL HISTORY 1. Pilonidal sinus removal. 2. Tonsillectomy. FAMILY HISTORY Father had melanoma. Sister had breast cancer. SOCIAL HISTORY Patient is with two children. 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 Denies any abuse of tobacco, alcohol or illicit drugs. CURRENT MEDICATIONS None. ALLERGIES No known drug allergies. REVIEW OF SYSTEMS CONSTITUTIONAL: No appetite or weight change. No fever, chills or sweating. No recent infection. HEENT: Ears: No tinnitus or hearing problem. Nose: No nasal discharge or epistaxis. Throat: No sore throat or mouth ulcers. Eyes: No diplopia or visual changes. RESPIRATORY: Patient has couth with expectorations and shortness of breath. CARDIOVASCULAR: No chest pain, orthopnea, or paroxysmal nocturnal dyspnea (PND). No edema. No palpitations. GASTROINTESTINAL: No nausea or vomiting. No diarrhea or constipation. No change in bowel movements. No heartburn or swallowing difficulties. No abdominal pain. No jaundice. No hematemesis, melena or rectal bleeding. GENITOURINARY: Patient has had heavy periods for years, and she has been seen by a wet process technician, and she was offered uterine ablation, but the patient refused the procedure. As per patient, she has had heavy periods for a total of seven days every month. MUSCULOSKELETAL: No pain in the muscles, joints or bones. NEUROLOGICAL: No tingling or numbness in the hands or feet. No headaches or convulsions. HEMATOLOGIC/LYMPHATIC: He bruises easily. He has bleeding sometime from the left neck melanoma lesion. He is weak, tired and fatigued. SKIN: No skin rash or lumps. PSYCHIATRIC: No anxiety or depression. PHYSICAL EXAMINATION GENERAL: Looks stable. Well-developed, well-nourished, and in no acute distress. VITAL SIGNS: Blood pressure 128/80, pulse 78 per minute, respirations 16 per minute, temperature 98.2, pulse ox 94% on room air. HEENT: Head: Atraumatic. No sinus tenderness to palpation. Eyes: No icterus or conjunctivitis. Mouth and Throat: No oral thrush or mucositis. NECK: Supple. No cervical or supraclavicular lymphadenopathy. LUNGS: Clear to auscultation and percussion bilaterally. HEART: Regular rate and rhythm. No gallops, murmurs, clicks or rubs. ABDOMEN: Soft and lax. No tenderness. No hepatosplenomegaly. No masses. EXTREMITIES: No cyanosis, clubbing or edema. LYMPHATICS: No peripheral lymphadenopathy. NEUROLOGICAL: Conscious, alert and oriented x3. No focal motor or sensory deficits. PSYCHIATRIC: Mood and affect appear normal. SKIN: No skin rash, bruise or purpuric eruption. ASSESSMENT 1. Melanoma of the face and neck. There is reddish-brownish mass below the left eye with ectropion of the lower lid on the left side. There was also a mass in the mid side of the left side of the neck. I talked to the patient and his family today including a son and about further evaluation and management. I talked to him about staging workup including PET CT scan and MRI of the brain but patient declined that at the moment. I offered him also radiation therapy of these two masses and he is agreeable with that so I am planning to refer him to the radiation oncologist for evaluation and treatment of these two skin lesions on the left side of the face and left side of the neck. 2. Pancytopenia. He had blood count done January 25, 2018, which showed white count 2.5, hemoglobin 7, hematocrit 22.3, MCV 94.3, platelet count 52,000. There were atypical lymphocytes 1% and enucleated RBC's. His pancytopenia could be due to nutritional deficiencies or bone marrow infiltration, which is expected from the neglected treatment of his melanoma so I am planning to get CBC, retic count, serum protein immunoelectrophoresis, B12, folate level, methylmalonic acid assay, iron studies with ferritin and I will ask the pathologist to review the peripheral blood smear to see if there is any left shift or erythroleukoblastic blood cells and if this is the case I am planning to do a bone marrow aspiration biopsy for further evaluation. I explained that to the patient. He is agreeable with the plan of management. PLAN 1. Radiation therapy consult. 2. CBC, retic count. 3. CMP. 4. B12 folate level. 5. Methylmalonic acid assay. 6. Serum protein electrophoresis. 7. Consider bone marrow aspiration biopsy. 8. Patient to return after the above. 9. Patient to contact us for any new concerns or complaints. MERYD
[2018-03-24 15:31] VITALS: BP 129/78
[2018-03-24 15:54] LABS: PLATELET COUNT, AUTOMATED 52 K/uL (150-450)
--- NOTE | 2018-04-02 03:05 | EL-TARAB[facility] ONCOLOGY NOTE ---
EVENT DATE: March 19, 2018 ADDENDUM On having the oncology history from the patient and his family, they mention that he has melanoma of the left side of the face, but on having the records, patient had a biopsy which was done on 24 May 2014, and the diagnosis came back positive for basal cell carcinoma, nodular and infiltrative type. Patient is referred to Radiation Oncology for irradiation of those lesions. WANDY
[2018-04-08 15:04] VITALS: BP 119/68
[2018-04-08 15:32] LABS: PLATELET COUNT, AUTOMATED 64 K/uL (150-450)
--- NOTE | 2018-04-13 05:55 | ONCOLOGY FOLLOW UP NOTE ---
EVENT DATE: April 08, 2018 CHIEF COMPLAINT Followup for basal cell carcinoma of the face/neck and pancytopenia. HISTORY OF PRESENT ILLNESS Patient is a 72-year-old male who is seen today in followup. He was diagnosed with a basal cell carcinoma of the left side of his face and left neck. He was considered inoperable. He received treatment with Erivedge, a hedgehog inhibitor, but discontinued this due to toxicities. He recently presented with significantly worsened lesions, and the plan was to begin radiation therapy. Unfortunately, he had had issues with anxiety. He had suicidal ideation, and he required [facility]. He presents today and feels much improved. He deferred any new medications and is managing anxiety with Ativan on a p.r.n. basis. He will meet with Dr. Randall on 04/13/18 to discuss further radiation. Otherwise, he feels fairly well. He does have some constipation, but uses prune juice for this. He and his family are here to review his most recent lab testing. ONCOLOGY HISTORY Patient was diagnosed with basal cell carcinoma of the left side of the face and neck, considered inoperable. He was treated with Erivedge, a hedgehog inhibitor, but discontinued this due to toxicity. He recently moved from [place] to [place] in 2018 and presented for consultation with both Dr. Randall and Dr. Salcido. He was also noted to have pancytopenia. PAST MEDICAL HISTORY Basal cell carcinoma of the left face/left neck. PAST SURGICAL HISTORY 1. Pilonidal sinus removal. 2. Tonsillectomy. FAMILY HISTORY Father had melanoma. Sister had breast cancer. SOCIAL HISTORY Patient is . They have two grown children. He and his are currently living with his daughter, son-in-law, and four grandchildren. 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 He denies any abuse of tobacco, alcohol, or illicit drugs. CURRENT MEDICATIONS Ativan p.r.n. ALLERGIES CODEINE. REVIEW OF SYSTEMS A 12-point review of systems is performed and is negative except as stated above. PHYSICAL EXAMINATION VITAL SIGNS: Weight 81.1 kg, blood pressure 119/68, pulse 81, respirations 16, temperature 98, O2 saturation 93%. GENERAL: Patient is a well-developed, well-nourished male in no acute distress. HEAD: Normocephalic, atraumatic. Open lesions noted on the left side of his face under his eye as well as on left neck. Area is ulcerated with darkened appearance of the skin. Also noted a smaller lesion at the base of the right neck. EYES: Sclerae anicteric. Left lower eyelid is pulled down somewhat. MOUTH: Moist mucous membranes. No lesions. NECK: Supple. No palpable adenopathy. Lesions as above. CARDIOVASCULAR: Heart rate regular, 84 per minute, without murmur, S3 or S4. LUNGS: Clear bilaterally. EXTREMITIES: No edema. NEUROLOGIC: Nonfocal. PSYCH: Patient is slightly anxious, but overall much improved. LABORATORY CBC today reveals WBC of 2.3, ANC of 0.8, hemoglobin 9.1, hematocrit 29.6, platelets 64,000. CMP is within normal limits. IMPRESSION The patient is a 68-year-old male with advanced basal cell carcinoma on the left side of his face, left neck, and right neck. Initially treated with a hedgehog inhibitor in 2014, but discontinued due to toxicity and a 50-pound weight loss. He will begin radiation under the care of Dr. Randall. Also noted to have pancytopenia. 1. Pancytopenia. We reviewed his labs today. Hemoglobin is slightly improved over previous, from 8.2 to 9.1. White count remains low with an ANC of 0.8. Platelets are also low at 64,000. Further workup showed low-normal B12 level of 192, folate greater than 22.3, methylmalonic acid 0.28, and a normal SPEP. Iron studies were also within normal limits. Dr. Salcido has discussed possible bone marrow biopsy, but at this time, patient and his family would like to focus on the radiation. He will see Dr. Salcido in two weeks with further lab. 2. Basal cell carcinoma. He initially was scheduled to begin radiation treatment, but did not tolerate the mask, as it caused significant anxiety. He will meet with Dr. Randall on 04/13/18 to discuss other options for treatment. Patient and his family are in agreement. 3. Psych. Patient had significant anxiety with the mask and was then unable to undergo this treatment. He also had suicidal ideation requiring a visit to the [facility]. He states he feels "back to normal" now. He deferred treatment with any other medications and will continue Ativan on a p.r.n. basis. 4. Follow up with Dr. Randall on 04/13/18. 5. Follow up with Dr. Salcido on 04/23/18 with CBC and CMP. MTDD
--- NOTE | 2018-04-13 15:32 | NUR ---
FELIX visited with the pt's family ( and son in law) while the patient was having his vitals taken and roomed for his appointment. SW followed up with the family on how things have been at home since the pt's hospitalization. They both indicated it has been "up and down" and they are aware that the patient behaves "cyclically" and has specific triggers which influence the behaviors. The patient's stated she was worried about the patient's attachment to his guns, although she was "sure" he would never use them inappropriately. She stated the patient is trying to get into see a counselor, although he can not commit to which one he would like to see. She also stated he is agreeable to visiting with the counselor about having his guns around. When questioned whether or not the patient has expressed anxiety about wearing the mask, the stated the patient doesn't seem bothered by the mask, but is bothered by the radiation treatment itself. She and the son in law also stated they noticed both times the patient has taken the lorazapam he seemed to have a heightened reaction. They stated they would keep an eye on his behavior after taking the lorazapam and may elect to try something different in the future if he still has a poor reaction. In all the pt's and son in law feel they are coping well, although they feel bad about the difficulty it has been for the patient. FELIX was unable to complete the assessment with the family because the pt was beginning his meeting with the provider and wanted his there with him. FELIX will follow up with the pt and again at the next convenient time they are in the clinic.
[2018-04-23 10:17] VITALS: BP 126/75
[2018-04-23 10:30] LABS: PLATELET COUNT, AUTOMATED 56 K/uL (150-450)
--- NOTE | 2018-04-23 12:21 | [facility] ONCOLOGY NOTE ---
EVENT DATE: April 23, 2018 DIAGNOSES 1. Pancytopenia. 2. Basal cell carcinoma of the face and neck. CHIEF COMPLAINT Patient is here today for followup of his pancytopenia. HEMATOLOGY/ONCOLOGY HISTORY Patient is a 72-year old male who was diagnosed four years ago with basal cell carcinoma of the left side of the face and left side of the neck and patient at that time was considered inoperable so he did not receive any treatment or resection and patient declined radiation therapy at that time. Patient moved from [place] to [place] five months ago. He has been seen by Dr. Carter recently for an abscess on the right leg and patient was referred because of his basal cell carcinoma of the left side of the face, below the left eye and left side of the neck. Patient has started radiation therapy here in [place] for that recently and he is still on radiation therapy with improvement. Patient also found to have pancytopenia. His white count was 2.3, hemoglobin 9.1, hematocrit 29.6, platelet 64,000. ANC was 0.8. He has some blood work for the pancytopenia. His vitamin B12 was 192, near the lower end of normal, but methylmalonic acid assay was normal at 0.28. Serum folate was more than 22.3. TSH was 3.1. Serum protein electrophoresis showed normal pattern. Normal monoclonal protein. HISTORY OF PRESENT ILLNESS The patient is here today for followup of his pancytopenia. He continues radiation therapy for his basal cell carcinoma of the left side of the face, below the left eye and left side of the neck. There is some improvement of the tumor. He is complaining of occasional cough. He has constipation. He is weak, tired and fatigued. 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 PAST SURGICAL HISTORY 1. Pilonidal sinus removal. 2. Tonsillectomy. FAMILY HISTORY Father had melanoma. Sister had breast cancer. SOCIAL HISTORY Patient is with two children. 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 Denies any abuse of tobacco, alcohol or illicit drugs. CURRENT MEDICATIONS None. ALLERGIES No known drug allergies. REVIEW OF SYSTEMS CONSTITUTIONAL: No appetite or weight change. No fever, chills or sweating. No recent infection. HEENT: Ears: No tinnitus or hearing problem. Nose: No nasal discharge or epistaxis. Throat: No sore throat or mouth ulcers. Eyes: No diplopia or visual changes. RESPIRATORY: He has occasional cough. CARDIOVASCULAR: No chest pain, orthopnea, or paroxysmal nocturnal dyspnea (PND). No edema. No palpitations. GASTROINTESTINAL: He has constipation. GENITOURINARY: Patient has had heavy periods for years, and she has been seen by a parent educator, and she was offered uterine ablation, but the patient refused the procedure. As per patient, she has had heavy periods for a total of seven days every month. MUSCULOSKELETAL: No pain in the muscles, joints or bones. NEUROLOGICAL: No tingling or numbness in the hands or feet. No headaches or convulsions. HEMATOLOGIC/LYMPHATIC: He is weak, tired and fatigued. SKIN: No skin rash or lumps. PSYCHIATRIC: No anxiety or depression. PHYSICAL EXAMINATION GENERAL: Looks stable. Well-developed, well-nourished, and in no acute distress. VITAL SIGNS: Blood pressure 126/75, pulse 80 per minute, respirations 16 per minute, temperature 97.6, pulse ox 97% on room air. HEENT: Head: Atraumatic. No sinus tenderness to palpation. Eyes: No icterus or conjunctivitis. Mouth and Throat: No oral thrush or mucositis. NECK: Supple. No cervical or supraclavicular lymphadenopathy. LUNGS: Clear to auscultation and percussion bilaterally. HEART: Regular rate and rhythm. No gallops, murmurs, clicks or rubs. ABDOMEN: Soft and lax. No tenderness. No hepatosplenomegaly. No masses. EXTREMITIES: No cyanosis, clubbing or edema. LYMPHATICS: No peripheral lymphadenopathy. NEUROLOGICAL: Conscious, alert and oriented x3. No focal motor or sensory deficits. PSYCHIATRIC: Mood and affect appear normal. SKIN: The basal cell carcinoma below the left eye and left side of the neck are actually shrinking with his radiation therapy currently. DIAGNOSTIC DATA CBC shows white count 2,000, hemoglobin 8.1, hematocrit 26.2, platelet count 56,000. Vitamin B12 was 192. Methylmalonic acid assay was 0.28. Folate more than 22.3. TSH 3.1. Serum protein electrophoresis showed normal pattern. ASSESSMENT 1. Pancytopenia with normal B12, folate and serum protein electrophoresis. Because of the low normal B12 level, I am planning to treat him with B12 shots 1000 mcg deep subcutaneously daily for one week and then weekly for four weeks and then once monthly after that. I am planning also to refer him to Dr. Carter for bone marrow aspiration biopsy. I will see him two weeks after his biopsy for further evaluation and management. 2. Basal cell carcinoma of the left side of the face below the left eye and left side of the neck, currently on radiation therapy with improvement. PLAN 1. Consult Dr. Carter for bone marrow aspiration biopsy. 2. Patient to return two weeks after his biopsy for further evaluation and management. 3. Continue radiation therapy for his basal cell carcinoma of the face and neck. 4. Patient to contact us for any new concerns or complaints. [facility]
[2018-05-27 12:02] VITALS: BP 122/68
--- NOTE | 2018-05-27 18:58 | [facility] ONCOLOGY NOTE ---
EVENT DATE: May 27, 2018 DIAGNOSES 1. Myelodysplastic syndrome, high risk by International Prognostic Scoring System, Revised (IPSS-R). 2. Pancytopenia due to myelodysplastic syndrome. 3. Basal cell carcinoma of the face and neck. CHIEF COMPLAINT Patient is here today for followup of his pancytopenia. HEMATOLOGY/ONCOLOGY HISTORY Patient is a 72-year old male who was diagnosed four years ago with basal cell carcinoma of the left side of the face and left side of the neck, and patient at that time was considered inoperable, so he did not receive any treatment or resection, and patient declined radiation therapy at that time. Patient moved from [place] to [place] five months ago. He has been seen by Dr. Carter recently for an abscess on the right leg, and patient was referred because of his basal cell carcinoma of the left side of the face, below the left eye, and left side of the neck. Patient has started radiation therapy here in [place] for that recently, and he is still on radiation therapy with improvement. Patient also found to have pancytopenia. His white count was 2.3, hemoglobin 9.1, hematocrit 29.6, platelet 64,000. ANC was 0.8. He has some blood work for the pancytopenia. His vitamin B12 was 192, near the lower end of normal, but methylmalonic acid assay was normal at 0.28. Serum folate was more than 22.3. TSH was 3.1. Serum protein electrophoresis showed normal pattern. Normal monoclonal protein. Patient had bone marrow aspiration biopsy done on the April, and the diagnosis came back positive for myelodysplastic syndrome with 5% to 9% blasts. 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 He had a score of 5 according to the IPSS-R/prognostic score system. HISTORY OF PRESENT ILLNESS The patient is here today for followup of his pancytopenia. He is currently receiving radiation therapy for his basal cell carcinoma of the left side of the face and below the left eye and left side of the neck. He is improving regarding his radiation therapy, and he is going to complete his radiation therapy on the May. Patient is complaining of cough with expectoration, shortness of breath, and wheezing. He has occasional epistaxis. He is weak, tired, and fatigued. 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 PAST SURGICAL HISTORY 1. Pilonidal sinus removal. 2. Tonsillectomy. FAMILY HISTORY Father had melanoma. Sister had breast cancer. SOCIAL HISTORY Patient is with two children. 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 Denies any abuse of tobacco, alcohol, or illicit drugs. CURRENT MEDICATIONS None. ALLERGIES No known drug allergies. REVIEW OF SYSTEMS CONSTITUTIONAL: No appetite or weight change. No fever, chills, or sweating. No recent infection. HEENT: Ears: No tinnitus or hearing problem. Nose: He has some epistaxis. Throat: No sore throat or mouth ulcers. Eyes: No diplopia or visual changes. RESPIRATORY: He has cough with expectoration, shortness of breath, and wheezing. No hemoptysis. CARDIOVASCULAR: No chest pain, orthopnea, or paroxysmal nocturnal dyspnea (PND). No edema. No palpitations. GASTROINTESTINAL: No nausea or vomiting. No diarrhea or constipation. No change in bowel movements. No heartburn or swallowing difficulties. No abdominal pain. No jaundice. No hematemesis, melena, or rectal bleeding. GENITOURINARY: No hematuria or dysuria. MUSCULOSKELETAL: No pain in the muscles, joints, or bones. NEUROLOGICAL: No tingling or numbness in the hands or feet. No headaches or convulsions. HEMATOLOGIC/LYMPHATIC: No bleeding or easy bruising. He is weak, tired, and fatigued. No enlarged lymph nodes. SKIN: No skin rash or lumps. PSYCHIATRIC: No anxiety or depression. PHYSICAL EXAMINATION GENERAL: Looks stable. Well developed, well nourished, and in no acute distress. VITAL SIGNS: Blood pressure 122/68, pulse 87 per minute, respirations 16 per minute, temperature 96.7, pulse ox 90% on room air. HEENT: Head: Atraumatic. No sinus tenderness to palpation. Eyes: No icterus or conjunctivitis. Mouth and throat: No oral thrush or mucositis. NECK: Supple. No cervical or supraclavicular lymphadenopathy. LUNGS: Clear to auscultation and percussion bilaterally. HEART: Regular rate and rhythm. No gallops, murmurs, clicks, or rubs. ABDOMEN: Soft and lax. No tenderness. No hepatosplenomegaly. No masses. EXTREMITIES: No cyanosis, clubbing, or edema. LYMPHATICS: No peripheral lymphadenopathy. NEUROLOGICAL: Conscious, alert, and oriented times three. No focal motor or sensory deficits. PSYCHIATRIC: Mood and affect appear normal. SKIN: No skin rash, bruise, or purpuric eruption. DIAGNOSTIC DATA CBC showed white count 2.6, hemoglobin 7.8, hematocrit 25.4, platelets 58,000, with left shift. Bone marrow aspiration biopsy done on the April came back positive for myelodysplastic syndrome with a lesion of the long arm of chromosome 20. ASSESSMENT 1. High-risk myelodysplastic syndrome based on positive bone marrow done on the April, which showed myeloblasts of 5%. 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 According to the International Prognostic Scoring System, Revised, patient has a score of 5, which puts him as high risk. Given that, he has a score of zero for ANC above 0.8, 0.5 for platelets between 50,000 to 100,000, 1.5 for hemoglobin less than 8, a score of 2 for myeloblasts between 5 to 10, and cytogenetics of 1 based on the lesion of chromosome #20, so the patient is considered high risk of myelodysplastic syndrome. I had a long discussion with the patient and his family today regarding further management. I am planning to treat him with Vidaza five days every four weeks. Patient and his family are agreeable with the plan of management. I am planning to start his treatment for myelodysplastic syndrome after he finishes radiation therapy for his basal cell carcinoma of the face on the May, so the patient will start treatment on the May. I am planning to check CBC and chemistry panel prior to each cycle of Vidaza. 2. Basal cell carcinoma of the left side of the face and below the left eye and the left side of the neck, getting much better with radiation therapy currently. PLAN 1. Vidaza cycle #1 to start on the May after he will finish his radiation therapy. 2. CBC, chem panel to be checked weekly after starting treatment. 3. Patient to return in four weeks after starting Vidaza with CBC and chem panel. 4. Patient to contact us for any new concerns or complaints. [facility]
[2018-05-31 11:41] VITALS: BP 114/70
--- NOTE | 2018-06-01 07:31 | ONCOLOGY CHEMO TEACHING ---
EVENT DATE: May 31, 2018 DIAGNOSES 1. Myelodysplastic syndrome, high risk by International Prognostic Scoring System, Revised (IPSS-R). 2. Pancytopenia due to myelodysplastic syndrome. 3. Basal cell carcinoma of the face and neck. The patient is seen today for chemotherapy teaching. A total of 60 minutes was spent with Mr. Quick, 100% of which was [id number] counseling. CHIEF COMPLAINT Patient is here today for followup of his pancytopenia. HEMATOLOGY/ONCOLOGY HISTORY Patient is a 72-year old male who was diagnosed four years ago with basal cell carcinoma of the left side of the face and left side of the neck, and patient at that time was considered inoperable, so he did not receive any treatment or resection, and patient declined radiation therapy at that time. Patient moved from [place] to [place] five months ago. He has been seen by Dr. Carter recently for an abscess on the right leg, and patient was referred because of his basal cell carcinoma of the left side of the face, below the left eye, and left side of the neck. Patient has started radiation therapy here in [place] for that recently, and he is still on radiation therapy with improvement. Patient also found to have pancytopenia. His white count was 2.3, hemoglobin 9.1, hematocrit 29.6, platelet 64,000. ANC was 0.8. He has some blood work for the pancytopenia. His vitamin B12 was 192, near the lower end of normal, but methylmalonic acid assay was normal at 0.28. Serum folate was more than 22.3. TSH was 3.1. Serum protein electrophoresis showed normal pattern. Normal monoclonal protein. Patient had bone marrow aspiration biopsy done on the April, and the diagnosis came back positive for myelodysplastic syndrome with 5% to 9% blasts. 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 He had a score of 5 according to the IPSS-R/prognostic score system. HISTORY OF PRESENT ILLNESS The patient is here today for followup of his pancytopenia. He is currently receiving radiation therapy for his basal cell carcinoma of the left side of the face and below the left eye and left side of the neck. He is improving regarding his radiation therapy, and he is going to complete his radiation therapy on the May. Patient is complaining of cough with expectoration, shortness of breath, and wheezing. He has occasional epistaxis. He is weak, tired, and fatigued. He reports this is largely unchanged. Lastly, he has some anxiety and questions about starting Vidaza for his MDS. 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 PAST SURGICAL HISTORY 1. Pilonidal sinus removal. 2. Tonsillectomy. FAMILY HISTORY Father had melanoma. Sister had breast cancer. SOCIAL HISTORY Patient is with two children. 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 Denies any abuse of tobacco, alcohol, or illicit drugs. CURRENT MEDICATIONS None. ALLERGIES No known drug allergies. DISCUSSION 1. A total of 60 minutes was spent in counseling today, 100% of which was face to face. At today's chemotherapy teaching session we discussed his diagnosis as well as the planned chemotherapy regimen and toxicities associated with VIDAZA IV, days 1 to 5 on a 28-day cycle (every four weeks). Handouts of each drug were provided and reviewed in detail. 2. Side effects and toxicities of chemotherapy agents included, but were not limited to: A. Bone marrow suppression, specifically neutropenia. He is instructed to contact our offices with any signs of infection. CBC will be monitored routinely. We discussed common sense approaches including routine hand washing and avoidance of crowds/sick people if neutropenic. B. GI side effects. Discussed the possibility of nausea, vomiting, diarrhea and constipation. He will receive IV antiemetics and will be prescribed antiemetics for home use. If he were to have diarrhea, recommended Imodium. If he were to have constipation, recommended Senna-S or Miralax routinely. Further interventions will be made based on side effects. C. side effects. Discussed the importance of adequate hydration (minimum 8 cups of fluid per day) and emptying the bladder on a regular basis. IV hydration can be scheduled as needed. D. Mouth sores. Recommended salt water or baking soda gargles as needed. E. Skin toxicity. Discussed that chemotherapy was very drying to the skin and mucous membranes. Recommended routine moisturizing as well as sun protection. F. Neurotoxicity. Discussed symptoms of peripheral neuropathy. He will be monitored of these symptoms and will notify us if progressive. G. Alopecia. Discussed that hair thinning may be seen, although complete hair loss or alopecia is not a common side effect. H. Fatigue. Discussed that this is one of the most common complaints of patients undergoing chemotherapy. I have encouraged him to remain as active as possible, taking frequent rests as needed. I. Infusion reaction. Reviewed IV premedications. He will be monitored closely during infusions. J. Reproductive Health: Discussed importance of preventing while on chemotherapy. Discussed control options and fertility preservation. Also, to abstain from sexual intercourse for 2-3 days after chemotherapy administration. 3. I have instructed the patient to call our office if he is prescribed any new medications. It is recommended that multiple supplements or herbal medications may not be taken as these may interfere with the action of the chemotherapy. 4. Discussed dietary issues associated with chemotherapy including anorexia and changes in taste. A handout of nutrition information is given. 5. Office contact information ([phone]) is given. I have encouraged the patient to call with any issues regarding treatment. 6. A tour of the infusion room is given. He is given a packet of information including all of the above. 7. We discussed the plan for VIDAZA and had a long discussion regarding most common side effects. Re-iterated that patient is at high risk and, therefore, that is reason to treat, given his pancytopenia. At the end of our discussion, I feel that patient was better educated and felt more comfortable with initiating treatment. 8. He does have some shortness of breath, mostly dyspnea on exertion, which does improve after rest. I did inform him to alert our office for any changes. Vital signs were largely stable today. [facility]
[2018-06-14] VITALS (11 sets, daily range): BP systolic 102–115; BP diastolic 53–68
[~2018-06-14] VITALS: Ht 181.6 cm; Wt 80.9 kg
[~2018-06-14 11:30] MED LIST changes: -DEXTROSE 5%(*) 100 ML BAG 100 ML IVPB PRN; -IOPAMIDOL 76% 150 ML INFUS BTL 150 ML ONE; +IOPAMIDOL 76% 75 ML INFUS BTL 0 ML ONE; +IOPAMIDOL 76% 75 ML INFUS BTL 75 ML ONE; -LIDOCAINE/SOD BICARB 8.4% SYR ID PRN; -NS(*) 0.9% 100 ML BAG 100 ML IVPB PRN
[2018-06-14] MEDS ORDERED: BENZ100C4 PO (13:30)
[2018-06-14] MEDS ORDERED: ALTEPLASE RECOMB 2 MG VIAL IVP PRN (14:05)
[2018-06-14] MEDS ORDERED: NS(*) 0.9% 500 ML BAG 500 ML IV PRN (14:05)
[2018-06-14] MEDS ORDERED: ACETAMINOPHEN 325 MG TAB PO ONE (14:05)
[2018-06-14] MEDS ORDERED: WATER FOR INJ,STERILE 20 ML IVP PRN (14:05)
[2018-06-14] MEDS ORDERED: diphenhydrAMINE 25 MG CAP PO ONE (14:05)
[2018-06-14] MEDS ORDERED: DEXTROSE 5%(*) 100 ML BAG 100 ML IVPB PRN (14:05)
[2018-06-14] MEDS ORDERED: NS(*) 0.9% 100 ML BAG 100 ML IVPB PRN (14:05)
--- NOTE | 2018-06-15 14:32 | ONCOLOGY FOLLOW UP NOTE ---
EVENT DATE: June 14, 2018 DIAGNOSES 1. Myelodysplastic syndrome, high risk by International Prognostic Scoring System, Revised (IPSS-R). 2. Pancytopenia due to myelodysplastic syndrome. 3. Basal cell carcinoma of the face and neck. CHIEF COMPLAINT Patient is here today for followup and questions regarding starting treatment with Vidaza. He is on the schedule tentatively, although patient does have questions and concerns. He is accompanied in the office today by his son-in-law, Ismael. HEMATOLOGY/ONCOLOGY HISTORY Patient is a 72-year old male who was diagnosed four years ago with basal cell carcinoma of the left side of the face and left side of the neck, and patient at that time was considered inoperable, so he did not receive any treatment or resection, and patient declined radiation therapy at that time. Patient moved from [place] to [place] five months ago. He has been seen by Dr. Carter recently for an abscess on the right leg, and patient was referred because of his basal cell carcinoma of the left side of the face, below the left eye, and left side of the neck. Patient has started radiation therapy here in [place] for that recently, and he is still on radiation therapy with improvement. Patient also found to have pancytopenia. His white count was 2.3, hemoglobin 9.1, hematocrit 29.6, platelet 64,000. ANC was 0.8. He has some blood work for the pancytopenia. His vitamin B12 was 192, near the lower end of normal, but methylmalonic acid assay was normal at 0.28. Serum folate was more than 22.3. TSH was 3.1. Serum protein electrophoresis showed normal pattern. Normal monoclonal protein. Patient had bone marrow aspiration biopsy done on the April, and the diagnosis came back positive for myelodysplastic syndrome with 5% to 9% blasts. 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 He had a score of 5 according to the IPSS-R/prognostic score system. Plan was for patient to start Cycle #1 with Vidaza last week, although he wanted to postpone this until this week. HISTORY OF PRESENT ILLNESS The patient is here today for followup visit and possible start with Vidaza Cycle #1. He has questions starting and reports feeling quite unwell. He tells me that "a lot of things have changed in the last ten days". He tells me over the last ten days he has noted worsening dyspnea on exertion and worsening shortness of breath. He has had increased fatigue as a result. He also reports worsening mucous accumulation and cough. He tells me at times he has coughing fits that last up to 45 minutes at a time. He is quite frustrated by this. His son-in-law, Ismael, states that the patient cannot do much of his ADLs. Patient is reporting some generalized throat pain. He also continues to have an open area below the left eye which was healing, although patient reports that this morning this appeared more inflamed than it had been. He denies any fevers. He continues to report dysgeusia and tells me that nothing taste good other than things with chocolate. He feels as though he may need oxygen at home but is not sure. His son-in-law tells me they have tried to obtain oxygen but were told that they could not unless he had a chronic lung disease. He has completed radiotherapy, completed on June 03, 2018. He is using [id number] measures for his cough and sputum production to include a humidifier, which he says he is jain about using, as well as some keko-rao-mzkrxag cough syrup. He is not on any prescription pain medication. The patient tells me that last night his coughing fit was so bad that when he went to sleep he did have a fleeting moment of where he thought it would better if he would not wake up. He denies any plans for suicide at this time. He tells me that he is not suicidal and has made too many promises to too many people. He tells me he does want to live but he is quite scared and concerned about how his would occur. He is afraid that he will be in a lot of pain. He has MDS and has had pancytopenia in the past. He has bee on radiation therapy for his basal cell carcinoma of the left side of the face, below the left eye, and the left side of the neck. He is improving regarding his radiation therapy. He completed radiotherapy on June 03, 2018. He does still have an area of desquamation noted to the left anterior neck, which he believes is improving and is becoming stock drier tender. He continues to have complaints of cough, which he feels has worsened, along with expectoration and increased sputum production. He believes his shortness of breath and wheezing has worsened. His respiratory symptoms are worse when he is speaking and he does have some noticeable hoarseness secondary to radiation therapy. He has had occasional epistaxis, although none recently. He feels generally weak and tired and tells me this has also worsened in the last ten days. He does have some anxiety about his overall disease state and treatment with Vidaza. He tells me he is so much weaker that today he had to come in via wheelchair instead of walking in and ambulating on his own, which he normally does. He denies any rectal bleeding or urinary bleeding. He does report a decreased appetite. The left eye was healing up until this morning per patient. 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 PAST SURGICAL HISTORY 1. Pilonidal sinus removal. 2. Tonsillectomy. FAMILY HISTORY Father had melanoma. Sister had breast cancer. SOCIAL HISTORY Patient is with two children. 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 Denies any abuse of tobacco, alcohol, or illicit drugs. CURRENT MEDICATIONS None. ALLERGIES No known drug allergies. REVIEW OF SYSTEMS CONSTITUTIONAL: Patient reports worsening generalized fatigue and general weakness. He denies any recent fevers, chills or infections. He denies any night sweats. He is unsure if he has had any weight changes but does report ongoing decreased appetite. HEENT: Patient continues to have an open lesion below the left eye. This was previously healing up until this morning when it became slightly more inflamed looking. He has not had any drainage there. He has not had any recent epistaxis, although has had difficulties with that in the past. He has some mucous production which he believes has increased, mostly when he coughs. He has some hoarseness secondary to radiotherapy. RESPIRATORY: Patient continues to have cough, which he feels has worsened, and has become more productive with thick clear to white colored sputum. No hemoptysis. He does have shortness of breath and worsening dyspnea on exertion. His breathing has overall declined in the last ten days or so. CARDIOVASCULAR: He denies any chest pain. He denies any palpitations. He denies any syncope or presyncope. GASTROINTESTINAL: He denies any nausea or vomiting. He has had both constipation and diarrhea in the past but tells me that he tends to have more constipation. His bowels have been normally currently and he is using stool softeners as well as prune juice. He denies any abdominal pain. He uses stool softeners, laxatives and prune juice as needed. His appetite has been decreasing. MUSCULOSKELETAL: No focal areas of pain. He reports generalized weakness. ENDOCRINE: He reports ongoing fatigue and poor endurance overall. HEME/LYMPH: He denies any bleeding or excessive bruising. DERM: He denies any rash or skin lesions. PSYCH: He denies any severe anxiety or depression, denies any suicidal or homicidal ideation. As noted above, he did report he had a fleeting moment last night where he was hoping he would not wake up this morning but tells me that this passed. He denies any plan for suicide. The remainder of a 12-point review of systems is performed today and is otherwise negative. PHYSICAL EXAMINATION VITAL SIGNS: Temperature 99.5 degrees Fahrenheit, P 83, R 16, BP 114/64, oxygen saturation 93% on room air. GENERAL: In general, this is a pleasant 72-year-old gentleman who appears chronically ill and fatigued and does have some noticeable dyspnea on exertion. No stridor. Otherwise, no acute distress. HEAD: Atraumatic, normocephalic. EYES: Nonicteric sclerae. Patient continues with lesion noted under the left eye. This appears slightly more erythematous today but there is no visible drainage. ENT/MOUTH: Patient has noticeable hoarseness. There is clear rhinorrhea noted to bilateral turbinates. NECK: Supple. no lymphadenopathy. No JVD. He does have appropriate skin changes related to the dermis in the neck. Area does seem slightly improved compared to last visit. Area seems to be more dry. LUNGS: Clear breath sounds to auscultation of upper lobes with diminished bases bilaterally. He has some worsening dyspnea on exertion today. He has some difficulty with his breathing status, at times worse when speaking. There is no dullness to percussion. No wheezes or rales. No stridor. CARDIAC: Regular rate and rhythm. No ectopy. PSYCH: Mood and affect are appropriate today. We discussed suicide and contracted for safety. NEURO: Patient is awake, alert, oriented x3. DERM: Patient has an area of desquamation noted to the left anterior neck secondary to radiation therapy. This has improved. Patient continues with left under eye lesion as noted above. Otherwise, cursory examination does not reveal any rash, bruises, petechiae or purpura. MUSCULOSKELETAL: No pain to palpation in the bony spinous processes. Gait is not assessed today. However, patient did require assistance with a wheelchair due to fatigue and dyspnea on exertion today. LABORATORY CBC today: WBC 3.0, ANC 1.8, hemoglobin down to 6.9, previously 8.5 on June 03, 2018. Hematocrit today 23.1%, platelets 76,000. CMP today: Sodium normal at 138, potassium normal 3.7, serum creatinine normal 0.90, random glucose slightly elevated at 134, uric acid normal 6.4, calcium normal 8.8, phosphorus normal 3.6, total bilirubin normal 1.0, AST normal at 34, ALT normal at 47. Alkaline phosphatase normal at 69. LDH normal at 507. Total protein normal at 7.4. Albumin normal at 3.6. IMAGING CT soft tissue neck at [facility] on April 28, 2018: (1) A 4.7 x 1.6 x 2.4 cm mass in the left anterior neck at the level of the larynx, involving the skin and subcutaneous fat. The adjacent platysma muscle is also thickened. Given the rapid onset, this is most likely infection superimposed upon the basal cell carcinoma. No evidence of abscess. (2) Stable mild focal skin thickening just below the left orbit and above the right clavicle. (3) Stable bilateral thyroid nodules. (4) Stable borderline-enlarged right submandibular, right level 3 and left level 4 lymph nodes measuring 1.2 x 0.8 cm, 0.8 x 0.8 cm, and 1.2 x 0.7 cm respectively. (5) Decreased mucosal thickening in the paranasal sinuses compared with March 30, 2017. IMPRESSION AND PLAN High-risk myelodysplastic syndrome based on positive bone marrow done on the April, which showed myeloblasts of 5%. 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 According to the International Prognostic Scoring System, Revised, patient has a score of 5, which puts him as high risk. Given that, he has a score of zero for ANC above 0.8, 0.5 for platelets between 50,000 to 100,000, 1.5 for hemoglobin less than 8, a score of 2 for myeloblasts between 5 to 10, and cytogenetics of 1 based on the lesion of chromosome #20, so the patient is considered high risk of myelodysplastic syndrome. Patient has met with his medical oncologist, Dr. Roldan Carlos, and discussed treatment with Vidaza. He and I have also previously met for formal chemotherapy teaching session. We discussed initiation Vidaza on days 1 through 5 every four weeks/28 days. He was agreeable to this during our chemotherapy teaching session but has placed this on hold recently. Our plan initially was to start treatment on June 07, 2018. He is now reporting worsening fatigue and dyspnea on exertion with occasional shortness of breath as well. He denies any symptoms consistent with GI bleed. He is reporting worsening cough. 1. Myelodysplastic syndrome. Plan is still to initiate Vidaza, although patient is noticeably weaker and more anemic today, likely related to his myelodysplastic syndrome. As such, we will hold initiation of Vidaza until next week when we can re-evaluate. 2. Anemia: I have written for patient to have two units of PRBCs today with standard premedication with acetaminophen and diphenhydramine. He will receive Lasix 20 mg IV in between units. See attached printed standard orders for today. 3. Cough: For his worsening cough, I have recommended [id number] Mucinex b.i.d. for the next week. I have also sent in an E-prescription for Tessalon Perles, 100 mg capsules, one t.i.d. p.r.n. cough, #21, no refills. 4. Patient will return to the clinic in one week for followup, repeat CBC, possibly Cycle #1 with Vidaza. MTDD
== END 2018-06-16 ==
LOC: ONC 11:30
PROVIDERS: ATTEND Internal Medicine Hematology
DX: D61.818 Other pancytopenia (principal); L85.8 Other specified epidermal thickening; R93.7 Abnormal findings on diagnostic imaging of other parts of musculoskeletal system; R91.8 Other nonspecific abnormal finding of lung field; E04.2 Nontoxic multinodular goiter; J32.0 Chronic maxillary sinusitis; J34.2 Deviated nasal septum; D64.9 Anemia, unspecified; F41.9 Anxiety disorder, unspecified; C44.310 Basal cell carcinoma of skin of unspecified parts of face
CPT/HCPCS: 36415; 70470; 70492; 82607; 82728; 82746; 83540; 83550; 83615; 83921; 84100; 84165; 84550; 85007; 85025; 85027; 85045; 86644; 86850; 86900; 86901; A9270; G0463; J7040; P9016; Q0163; Q9967; 77290; 82040; 82247; 82310; 82374; 82435; 82565; 82947; 84075; 84132; 84155; 84295; 84450; 84460; 84520; 86920; 99202; 99212

== ENCOUNTER 2018-06-29 15:13 | Inpatient (IN) | payer MEDICARE ==
[2018-01-22 19:25] VITALS: Ht 180.3 cm; Wt 75.7 kg
[~2018-06-29] VITALS: Ht 180.3 cm; Wt 75.7 kg
[~2018-06-29 15:13] MED LIST changes: +BENZ100C4 PO; -IOPAMIDOL 76% 75 ML INFUS BTL 0 ML ONE; -IOPAMIDOL 76% 75 ML INFUS BTL 75 ML ONE
--- NOTE | 2018-06-29 15:16 | ER Report ---
History and Physical Time Seen By MD: 15:15 HPI/ROS CHIEF COMPLAINT: Fever, history of myelo dysplastic syndrome, abscess of the left forehead, right buttock HISTORY OF PRESENT ILLNESS: Patient is a 72-year-old male here with complaints of fever in the setting of myelodysplastic syndrome on Vidaza. Patient reports recent history of fever starting yesterday, general malaise, history of anemia with recent transfusion approximately 10 days ago, increasing dyspnea, weakness. Patient sent in from cancer clinic for evaluation due to concern for possible sepsis or spreading infection. REVIEW OF SYSTEMS: Constitutional: + fever, + chills, + malaise Eyes: No discharge. ENT: No sore throat. Cardiovascular: No chest pain, no palpitations. Respiratory: No cough, + shortness of breath. Gastrointestinal: No abdominal pain, no vomiting. Genitourinary: No hematuria. Musculoskeletal: No back pain. Skin: + Erythematous, tender fluctuant rashes. Neurological: No headache, No focal deficits, + generalized weakness Allergies: Coded Allergies: codeine (Verified Allergy, Unknown, 06/29/18) Home Meds Active Scripts Benzonatate 100 Mg Cap (TESSALON PERLE 100 MG CAP) 100 Mg Capsule, 100 MG PO TID PRN for cough, #21 CAP 0 Refills 1 capsule po TID PRN Cough Prov:ROEL PATRICK APRN, FNP 06/14/18 Reported Medications Silver Sulfadiazine (SILVADENE) 20 Gm Cream..g., 20 GM TP Apply to affected area 2-3 times per day x 3 weeks 05/25/18 Benzalkonium Chloride (NEOSPORIN) 68 Ml Foam..ml., 0.09 PKT TP 04/02/18 Multivits,Th W-Fe,Other Min (THERA-M) 1 Each Tablet, 1 EACH PO DAILY 04/02/18 Lorazepam (LORAZEPAM) 1 Mg Tab, 1 MG PO PRN, TAB Pt. takes 1 tab before radition. 04/01/18 Polyvinyl Alcohol/Povidone/Pf (REFRESH CLASSIC EYE DROPS) 1 Each Droperette, 1 EACH OP 04/01/18 Dimethicone (RESTORE DIMETHICREME) 118 Ml Cream.ml., 118 ML TP 04/01/18 Polymyxin B Sulf/Trim 10,000 Unt-1 Mg/Ml Op (POLYMYXIN B-TMP EYE DROPS) 10 Ml Drops, 10 ML OP TID, BOT 04/01/18 Hx Smoking: No Smoking Status: Never Smoker Exposure to Second Hand Smoke?: No Hx Substance Use Disorder: No Hx Alcohol Use: No Constitutional Vital Sign - Last 24 Hours 06/29/18 06/29/18 06/29/18 06/29/18 15:20 15:21 15:28 15:30 Temp 98.4 Pulse 81 77 Resp 16 B/P (MAP) 115/66 115/66 (82) 96/66 (76) Pulse Ox 93 96 O2 Delivery Nasal Cannula O2 Flow Rate 3.0 06/29/18 06/29/18 06/29/18 06/29/18 15:45 16:00 16:15 16:30 Pulse 77 88 89 80 B/P (MAP) 105/66 (79) 110/66 (81) Pulse Ox 92 94 92 95 06/29/18 06/29/18 06/29/18 06/29/18 16:45 17:00 17:15 17:30 Temp 99.7 Pulse 77 79 82 B/P (MAP) 115/73 (87) Pulse Ox 92 95 94 06/29/18 06/29/18 06/29/18 06/29/18 17:30 17:45 18:00 18:15 Pulse 83 80 76 76 B/P (MAP) 116/81 (93) 104/69 (81) Pulse Ox 89 94 94 95 06/29/18 06/29/18 06/29/18 06/29/18 18:30 18:45 18:50 18:55 Pulse 73 77 74 78 B/P (MAP) 109/66 (80) Pulse Ox 96 93 93 90 06/29/18 19:00 Pulse 82 B/P (MAP) 84/46 (59) Pulse Ox 93 Intake and Output 06/29/18 06/29/18 06/30/18 15:00 23:00 07:00 Intake Total 1500 ml Balance 1500 ml Physical Exam General Appearance: The patient is alert, has no immediate need for airway protection and no signs of toxicity. Uncomfortable and frail appearing Eyes: Pupils equal and round no pallor or injection. ENT, Mouth: Mucous membranes are moist. Respiratory: There are no retractions, lungs are clear to auscultation. Cardiovascular: Regular rate and rhythm. Gastrointestinal: Abdomen is soft and non tender, no masses, bowel sounds cuca l. Neurological: No focal neuro deficits Skin: + left forehead large 3 cm with fluctuance and tenderness, + erythematous 3 cm erythematous, non fluctuant lesion of right superior buttock Musculoskeletal: Neck is supple non tender. Extremities are nontender, nonswollen and have full range of motion. DIFFERENTIAL DIAGNOSIS: After history and physical exam differential diagnosis was considered for adult fever including but not limited to viral syndromes including influenza, urinary tract infection, pneumonia and sepsis. Medical Decision Making Data Points Result Diagram: 06/30/18 0550 06/29/18 1528 Laboratory Hematology Test 06/29/18 15:28 06/29/18 15:45 Sodium Level 137 mmol/L (137-145) Potassium Level 4.3 mmol/L (3.5-5.0) Chloride Level 105 mmol/L (98-107) Carbon Dioxide Level 22 mmol/L (22-30) Blood Urea Nitrogen 16 mg/dl (9-21) Creatinine 0.70 mg/dl (0.66-1.25) Glomerular Filtration Rate Calc > 60.0 Random Glucose 107 mg/dl (75-110) Lactate 1.7 mmol/L (0.7-2.1) Calcium Level 8.3 mg/dl (8.4-10.2) Total Bilirubin 0.9 mg/dl (0.2-1.3) Aspartate Amino Transf (AST/SGOT) 40 U/L (0-35) Alanine Aminotransferase (ALT/SGPT) 39 U/L (0-56) Alkaline Phosphatase 61 U/L (0-126) Total Protein 6.4 g/dl (6.3-8.2) Albumin 3.0 g/dl (3.5-5.0) Influenza Virus Type A (PCR) Negative (NEGATIVE) Influenza Virus Type B (PCR) Negative (NEGATIVE) Chemistry Test 06/29/18 15:28 06/29/18 15:45 Glomerular Filtration Rate Calc > 60.0 Lactate 1.7 mmol/L (0.7-2.1) Calcium Level 8.3 mg/dl (8.4-10.2) Total Bilirubin 0.9 mg/dl (0.2-1.3) Aspartate Amino Transf (AST/SGOT) 40 U/L (0-35) Alanine Aminotransferase (ALT/SGPT) 39 U/L (0-56) Alkaline Phosphatase 61 U/L (0-126) Total Protein 6.4 g/dl (6.3-8.2) Albumin 3.0 g/dl (3.5-5.0) Influenza Virus Type A (PCR) Negative (NEGATIVE) Influenza Virus Type B (PCR) Negative (NEGATIVE) Microbiology Microbiology Date/Time Source Procedure Growth Status 06/29/18 15:39 Blood Peripheral Draw Blood Culture - Preliminary NO GROWTH AFTER 1 DAY, REINCUBATED Resulted 06/29/18 15:33 Blood Peripheral Draw Blood Culture - Preliminary NO GROWTH AFTER 1 DAY, REINCUBATED Resulted EKG/Imaging Imaging PATIENT NAME: Gaurav Sewell : 1945 MR: [id number] V: [id number] EXAM DATE: ORDERING PHYSICIAN: LINDA AHMADI TECHNOLOGIST: Location: [facility] - [place] Patient: Gaurav Sewell : 1945 Visit/Account:[id number] Date of Sevice: 06/29/2018 CHEST SINGLE AP History: Fever COMPARISON STUDIES: Comparison neck CT which includes the lung apices. FINDINGS: LUNGS AND PLEURA: There is diffusely coarsened pulmonary interstitium which is probably new since the lung apices are well-aerated and unremarkable on the recent CT no claudia consolidation or pleural effusions seen. MEDIASTINUM: Normal. HEART: Normal. Osseous structures: Normal. IMPRESSION: Findings most concerning for pneumonitis which would include hypersensitivity pneumonitis ED Course/Re-evaluation ED Course Patient is a 72-year-old male with history of myelodysplastic syndrome here with fevers, chills, weakness, fatigue and a large left forehead abscess, right superior buttock cellulitic lesion. Patient had approximately 3 mL of 1% lidocaine with epinephrine instilled into the right buttock lesion, approximately 4 mL infiltrated into the left for head abscess. The right buttock lesion was lanced using an 11 blade with no purulent drainage. The left forehead lesion was lanced using an 11 blade and then approximately 10 mL of purulent material was expressed from the lesion. Due to the patient's history of immunocompromise, patient was given vancomycin, ceftriaxone for antimicrobial therapy. Patient was given normal saline bolus, labs and cultures were collected, chest x-ray was unremarkable or stable compared to prior. I discussed the patient with Dr. lynn who admitted the patient for further treatment optimization. Patient was hemodynamically stable throughout course. Procedure A 3-4 cm fluctuant lesion was identified patient's left forehead, 3 cm lesion which was erythematous, cellulitic appearing and nonfluctuant was identified on the patient's right upper buttock. Patient was infiltrated with approximately 3- 4 mL of 1% lidocaine with epinephrine for local anesthetic. Site was previously cleaned using alcohol prep pad, buttock lesion was lanced using an 11 blade with no purulent material returned. Left for head lesion was lanced using an 11 blade and loculations were broken up using hemostat and tweezers. Approximately 10 mL of purulent material was drained from the lesion. The lesion was packed using io doform gauze in order to maintain patency. Patient tolerated the procedure well. Decision to Disposition Date: Jun 29, 2018 Decision to Disposition Time: 18:20 Depart Departure Latest Vital Signs Vital Signs Date Time Temp Pulse Resp B/P (MAP) Pulse Ox O2 Delivery O2 Flow Rate FiO2 06/29/18 19:00 82 84/46 (59) 93 06/29/18 17:30 99.7 06/29/18 15:28 3.0 06/29/18 15:20 16 Nasal Cannula Impression: Primary Impression: Cellulitis Additional Impressions: Abscess Fever MDS (myelodysplastic syndrome) Condition: Condition Unchanged Disposition: Admitted from ER Problem Qualifiers LINDA AHMADI DO Jun 29, 2018 15:15
[2018-06-29] MEDS ORDERED: NS(*) 0.9% 1000 ML BAG 1,000 ML IV ONE (15:24)
[2018-06-29] MEDS ORDERED: ACETAMINOPHEN 500 MG TAB PO ONE (15:25)
[2018-06-29] MEDS ORDERED: cefTRIAXone 1 GM VIAL IVP ONE (15:30)
[2018-06-29] MEDS ORDERED: VANCOMYCIN 1 GM VIAL IVPB SCH (15:30)
[2018-06-29 16:06] LABS: PLATELET COUNT, AUTOMATED 43 K/uL (150-450)
--- NOTE | 2018-06-29 16:14 | RADIOLOGY IMAGING REPORT ---
FACILITY: [facility] - [place] PATIENT NAME: Gaurav Sewell : 1945 MR: [id number] V: [id number] EXAM DATE: ORDERING PHYSICIAN: LINDA AHMADI TECHNOLOGIST: Location: [facility] - [place] Patient: Gaurav Sewell : 1945 Visit/Account:[id number] Date of Sevice: 06/29/2018 CHEST SINGLE AP History: Fever COMPARISON STUDIES: Comparison neck CT which includes the lung apices. FINDINGS: LUNGS AND PLEURA: There is diffusely coarsened pulmonary interstitium which is probably new since the lung apices are well-aerated and unremarkable on the recent CT no claudia consolidation or pleural eff usions seen. MEDIASTINUM: Normal. HEART: Normal. Osseous structures: Normal. IMPRESSION: Findings most concerning for pneumonitis which would include hypersensitivity pneumonitis Report Dictated By: Carlito Grullon MD at 06/29/2018 4:07 PM Report E-Signed By: Carlito Grullon MD at 06/29/2018 4:10 PM WSN:[id number]
[2018-06-29] MEDS ORDERED: VANCOMYCIN(*) 1 GM VIAL 2 GM in NS(*) 0.9% 500 ML BAG 500 ML IVPB ONE (16:20)
[2018-06-29] MEDS ORDERED: fentaNYL CITR 100 MCG/2 ML AMP IVP ONE (17:20)
[2018-06-29] MEDS ORDERED: ONDANSETRON 4 MG/2 ML VIAL IVP ONE (17:20)
[2018-06-29] MEDS ORDERED: APAP/HYDROCODONE 325/5 TAB PO PRN (19:05)
[2018-06-29] MEDS ORDERED: diphenhydrAMINE 25 MG CAP PO ONE (19:05)
[2018-06-29] MEDS ORDERED: ACETAMINOPHEN 325 MG TAB PO PRN (19:05)
[2018-06-29] MEDS ORDERED: FLUSH 10 ML SYR IVP PRN (19:05)
[2018-06-29 19:31] VITALS: BP 98/60
[2018-06-29] MEDS ORDERED: NS(*) 0.9% 250 ML BAG 250 ML ONE (19:57)
[2018-06-29] MEDS: NS(*) 0.9% 1000 ML BAG 1,000 ML IV PRN (20:01)
--- NOTE | 2018-06-29 20:03 | History & Physical ---
History of Present Illness Chief Complaint fatigue, painful red skin, abscess History of Present Illness 72M presented to ER with abscess on forehead, red skin on buttock, fatigue. PMHx significant for MDS, metastatic melanoma. Reports not feeling well for a while, maybe a week. Noted goose egg with erythema on forehead, erythema on R buttock n ear top of gluteal cleft. Lab shows pancytopenia which is chronic. Abscess drained with bloody purulent fluid in ER unfortunately no Cx was taken. No systemic symptoms but given fatigue and comorbidities he was admitted for transfusion and initiation of antibiotics. Family report cough but patient did not cough during entire encounter and CXR showed no acute pathology. Denies fever, chills, some pain at skin sites. History Problems: (1) MDS (myelodysplastic syndrome) Status: Acute (2) Pancytopenia Status: Chronic (3) Metastatic melanoma to head and neck Status: Chronic Home Meds Active Scripts Benzonatate 100 Mg Cap (TESSALON PERLE 100 MG CAP) 100 Mg Capsule, 100 MG PO TID PRN for cough, #21 CAP 0 Refills 1 capsule po TID PRN Cough Prov:ROEL PATRICK APRN,SHIELD OPERATOR 06/14/18 Reported Medications Silver Sulfadiazine (SILVADENE) 20 Gm Cream..g., 20 GM TP Apply to affected area 2-3 times per day x 3 weeks 05/25/18 Benzalkonium Chloride (NEOSPORIN) 68 Ml Foam..ml., 0.09 PKT TP 04/02/18 Multivits,Th W-Fe,Other Min (THERA-M) 1 Each Tablet, 1 EACH PO DAILY 04/02/18 Lorazepam (LORAZEPAM) 1 Mg Tab, 1 MG PO PRN, TAB Pt. takes 1 tab before radition. 04/01/18 Polyvinyl Alcohol/Povidone/Pf (REFRESH CLASSIC EYE DROPS) 1 Each Droperette, 1 EACH OP 04/01/18 Dimethicone (RESTORE DIMETHICREME) 118 Ml Cream.ml., 118 ML TP 04/01/18 Polymyxin B Sulf/Trim 10,000 Unt-1 Mg/Ml Op (POLYMYXIN B-TMP EYE DROPS) 10 Ml Drops, 10 ML OP TID, BOT 04/01/18 Allergies: Coded Allergies: codeine (Verified Allergy, Unknown, 06/29/18) Patient History: FH: borderline diabetes MOTHER FH: cancer BROTHER OR SISTER Polio MOTHER Hx Smoking: No Smoking Status: Never Smoker Exposure to Second Hand Smoke?: No Caffeine Intake: Soda Caffeine/Cups Per Day: Pepsi once in a while Hx Alcohol Use: No Hx Substance Use Disorder: No Social Drug Use: Never Review of Systems Constitutional: No Fever, No Chills Respiratory: No Shortness of Breath Gastrointestinal: No Nausea, No Vomiting Musculoskeletal: Pain Exam Vital Signs Vital Signs Date Time Temp Pulse Resp B/P (MAP) Pulse Ox O2 Delivery O2 Flow Rate FiO2 06/29/18 19:20 81 94 06/29/18 19:00 84/46 (59) 06/29/18 17:30 99.7 06/29/18 15:28 3.0 06/29/18 15:20 16 Nasal Cannula General Appearance: Alert, Awake, No Acute Distress, Afebrile Neuro: No Gross deficits Eyes: Other (L eye droop, chronic from melanoma resection) Cardiovascular: Normal Rhythm & Peripheral Pulses Respiratory: No Respiratory Distress Extremities: Soft and Non Tender, Warm, Pulses, Perfused Integumentary: Other (draining wound to L forehead with dressing, R buttock near top gluteal cleft 5cm erythema with central eschar) Medical Decision Making Data Points Result Diagram: 06/29/18 1528 06/29/18 1528 Assessment and Plan Problems: (1) Pancytopenia Status: Chronic Assessment & Plan: Chronic, Hgb near 7 on admission. With symptoms will transfuse 1U PRBC. Recent transfusion and Hgb dropped from 9 to 7.3 on admission, poor prognosis given transfusion dependence. (2) MDS (myelodysplastic syndrome) Status: Acute Assessment & Plan: Started chemotherapy with Vidaza one week before admission. Fatigue common side effect. (3) Cellulitis Assessment & Plan: Limited and abscess drained, IV vancomycin and Rocephin in ER. Given mild symptoms with purulence will begin doxycycline IV with plan to transition to PO if responding well. Venous Thromboembolism Antithrombotics Is Pt On Any Antithrombotics?: No Prophylaxis Tx Contraindicated Pharmacological Contraindicati: Low Platelet Count Exam Sepsis Risk: No Definite Risk ALBA BRITO DO Jun 29, 2018 20:03
[2018-06-29 21:55] VITALS: BP 96/57
[2018-06-29 22:00] VITALS: BP 93/62
[2018-06-29 22:05] VITALS: BP 98/63
[2018-06-29 22:10] VITALS: BP 91/57
[2018-06-29 22:13] VITALS: BP 89/58
[2018-06-30] VITALS (14 sets, daily range): BP systolic 93–108; BP diastolic 51–69
[2018-06-30] MEDS: DOXYCYCLINE HYCL 100 MG VIAL 100 MG in NS(*) 0.9% 250 ML BAG 250 ML IV SCH ×3 (00:18→21:41)
[2018-06-30 07:22] LABS: PLATELET COUNT, AUTOMATED 25 K/uL (150-450)
[2018-06-30] MEDS: NS(*) 0.9% 1000 ML BAG 1,000 ML IV PRN (09:20)
--- NOTE | 2018-06-30 09:56 | Hospitalist Progress Note ---
Subjective Progress Notes Subjective He was admitted with cellulitis and anemia. He was given 1 unit of packed red cells overnight, but Hgb decreased this morning. He has bleeding from his gums this morning. His wound appears to have increased in redness overnight. Patient Complains of: Cardiovascular: No: Chest Pain Respiratory: No: Shortness of Breath Physical Exam Vital Signs Date Time Temp Pulse Resp B/P (MAP) Pulse Ox O2 Delivery O2 Flow Rate FiO2 06/30/18 07:24 95 Nasal Cannula 4.0 06/30/18 07:18 98.6 63 24 93/57 (69) Intake and Output 06/30/18 01:00 Intake Total 2740 ml Balance 2740 ml Intake Oral 240 ml IV Total 1500 ml Blood Product 1000 ml # Voids 1 General Appearance: Alert, Awake, No Acute Distress, Afebrile Neuro: No Gross deficits ENT: Other (gums have dried blood and new blood present) Cardiovascular: Regular Rate and Rhythm Respiratory: No Respiratory Distress, Clear to Auscultation Integumentary: Other (wound to buttocks appears to have more erythema, increased in size) Psych: Alert & Oriented X3, Appropriate Mood & Affect Result Diagram: 06/30/18 0550 06/29/18 1528 Assessment and Plan Problems: (1) Pancytopenia Status: Chronic Assessment & Plan: Chronic, Hgb near 7 on admission, decreased to 6.9 this morning. Had 1U PRBC 06/29. He will receive 2units PRBC today along with 1 unit platelets secondary to bleeding gums. Recent transfusion and Hgb dropped from 9 to 7.3 on admission, poor prognosis given transfusion dependence. (2) MDS (myelodysplastic syndrome) Status: Acute Assessment & Plan: Started chemotherapy with Vidaza one week before admission. Fatigue common side effect. (3) Cellulitis Assessment & Plan: Limited and abscess drained, IV vancomycin and Rocephin in ER. He was placed on doxycycline IV with plan to transition to PO if responding well. But will add Vancomycin today, since wound cellulitis increased. Exam Sepsis Risk: Severe Sepsis Risk AMEENA ALFARO ENVIRONMENTAL SERVICES TECHNICIAN Jun 30, 2018 09:56
[2018-06-30] MEDS: VANCOMYCIN(*) 1 GM VIAL 1 GM, VANCOMYCIN (*) 0.5 GM VIAL 0.5 GM in NS(*) 0.9% 250 ML BA... IVPB SCH ×2 (11:40→23:27)
[2018-06-30] MEDS ORDERED: NS(*) 0.9% 250 ML BAG 250 ML ONE (11:52)
--- NOTE | 2018-06-30 12:14 | NUR ---
Physical Therapy Impression Subjective: Pt reports recently being bitten by something on his R low back/bottom. Pt also reports the spot on his forehead beginning like an "ingrown hair" but kept getting bigger and required draining in the ER yesterday (06/29/18). Objective: Viewed R superior buttock area with a black center approximately 0.2cmx0.2cm and reddened, hard, and hot dalton-wound. No debridement indicated at this time, however, PT to continue to observe. Pt with critical H/H as well as low platelets, thus, will defer to General Surgery. Viewed forehead area and noted a bump with a lanced area and wound packing. Again, no debridement necessary and recommend loose packing being changed daily due to location of wound. General Surgery has been consulted. PT to follow-up after consult. Physical Therapy Goals Patient's Goals
--- NOTE | 2018-06-30 12:37 | Pharmacy Note ---
Vancomycin Management Note Vanco Dosing Note Pharmacy Services Pharmacokinetic Dosing Consult, Vancomycin Pharmacy has been consulted for dosing and monitoring of vancomycin for 72 yo M for multiple abscesses in a patient with MDS and currently immunosuppressed. Pertinent Past Medical History: MDS, skin abscess, pancytopenia, melanoma, basal cell carcinoma of the neck/face s/p XRT Antibiotics prior to admission; No Additional Antimicrobials: Doxycycline 100mg IV q12h, started 06/29/18 Vancomycin 2g IV x 1, 06/29/18 @1600, random level on 06/30 @1000 ~9.48 mcg/mL Vancomycin 1.5 g IV Q12H to start 06/30/18 @ 11,23 Patient Information: Height (cm): 180.34cm Actual Body Weight (ABW): 75.75 kg Pertinent Lab Tests WHITE BLOOD COUNT 3 NEUTROPHILS 76% , 4% bands BLOOD UREA NITROGEN 16 SCR 0.7 VANCOMYCIN RANDOM 06/30/18 @1000 ~18h random--9.48 mcg/mL Culture Results: BLOOD - NA URINE NA SPUTUM NA WOUND NA History: Pt has had MSSA in the past, but with multiple encounters with healthcare in the last months, immunosuppression, s/p XRT, would recommend MRSA coverage until drainage of gluteal abscess is completed and culture results available. Gluteal abscess drainage will be sent for ID and Sensitivity via culture. Assessment: CrCl ~85 ml/min Renal function is stable Vancomycin Monitoring Assessment Goal Vancomycin Trough Level: 15-20 mcg/mL Plan: 1) Vancomycin 25 mg/kg loading dose (based on ABW): 2 g IV x 1 (given 06/29/18 @1600) 2) Vancomycin maintenance dose (based on ABW): 1.5 g IV Q12H 3) Vancomycin monitoring: Next trough, 07/01/18 @1000 Pharmacy will continue to monitor daily and adjust regimen as appropriate. Thank you for the consult. Mercedes Castro, PharmD, BCOP MERCEDES CASTRO Jun 30, 2018 12:37
--- NOTE | 2018-06-30 12:50 | ONCOLOGY FOLLOW UP NOTE ---
EVENT DATE: June 29, 2018 DIAGNOSES 1. Myelodysplastic syndrome, high risk by International Prognostic Scoring System, Revised (IPSS-R). 2. Pancytopenia due to myelodysplastic syndrome. 3. Basal cell carcinoma of the face and neck. CHIEF COMPLAINT Patient is here today for an add-on/acute care visit after his grandson notified us of some lesions or what he describes as boils noted to the left anterior forehead as well as the right hip/buttock area. They are also concerned about recent fever at home as well as worsening cough. HEMATOLOGY/ONCOLOGY HISTORY Patient is a 72-year old male who was diagnosed four years ago with basal cell carcinoma of the left side of the face and left side of the neck, and patient at that time was considered inoperable, so he did not receive any treatment or resection, and patient declined radiation therapy at that time. Patient moved from [place] to [place] five months ago. He has been seen by Dr. Carter recently for an abscess on the right leg, and patient was referred because of his basal cell carcinoma of the left side of the face, below the left eye, and left side of the neck. Patient has started radiation therapy here in [place] for that recently, and he is still on radiation therapy with improvement. Patient also found to have pancytopenia. His white count was 2.3, hemoglobin 9.1, hematocrit 29.6, platelet 64,000. ANC was 0.8. He has some blood work for the pancytopenia. His vitamin B12 was 192, near the lower end of normal, but methylmalonic acid assay was normal at 0.28. Serum folate was more than 22.3. TSH was 3.1. Serum protein electrophoresis showed normal pattern. Normal monoclonal protein. Patient had bone marrow aspiration biopsy done on May 17, 2018, and the diagnosis came back positive for myelodysplastic syndrome with 5% to 9% blasts. 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 He had a score of 5 according to the IPSS-R/prognostic score system. Originally, patient was initiated to start treatment with Vidaza for his myelodysplastic syndrome on the June 07, 2018. However, this was postponed secondary to decreased performance status and patient's anxiety over treatment. He also required a blood transfusion during that time. He actually initiated Cycle #1, Day 1 with Vidaza on June 21, 2018. HISTORY OF PRESENT ILLNESS The patient is here today accompanied by his son-in-law and daughter. He is in for followup overall for his myelodysplastic syndrome as he is now on treatment with Vidaza. However, patient's son-in-law called us today reporting decreased performance status and requested evaluation of Mr. Sewell. Per his family, they have noticed increasing cough and shortness of breath, increase in worsening fatigue as well as new lesions, one noted to the left forehead and one noted to the right gluteal area. They are concerned about possible infection as they state that he presented with a similar area on his neck prior to being diagnosed with basal cell carcinoma of the face and neck. Patient continues to report a cough with expectoration and shortness of breath, although he reports this is a bit worse today. We did initiate him on supplemental oxygen therapy, which he received approximately one week ago. This had been helping, although he tells me that recently he feels as though this is not helping as much. He is more fatigued. He has now lost taste for food, which could be due to his radiation therapy, although he did have this problem prior to starting him on treatment. Patient's family members report subjective fever as high as 100 to 101 in the last few days, although patient/ family didn't notify us about this until today. 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 PAST SURGICAL HISTORY 1. Pilonidal sinus removal. 2. Tonsillectomy. FAMILY HISTORY Father had melanoma. Sister had breast cancer. SOCIAL HISTORY Patient is with two children. 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 Denies any abuse of tobacco, alcohol, or illicit drugs. CURRENT MEDICATIONS None. ALLERGIES No known drug allergies. REVIEW OF SYSTEMS CONSTITUTIONAL: Patient denies any chills but does report subjective fever as high as 101 in the last couple of days. No recent infections, although he does report worsening cough. He reports worsening fatigue and general malaise. HEENT: No vision problems. No tinnitus. He has some occasional nasal drainage but no epistaxis. He does report a productive cough. RESPIRATORY: He continues to report productive cough with expectoration. He does have dyspnea on exertion. He occasionally has some shortness of breath, although this did improve a week or so ago after 2 units of PRBCs and also improved after starting supplemental oxygen via nasal cannula. He now reports that his shortness of breath has returned. No hemoptysis. No pleuritic chest pain. CARDIOVASCULAR: No chest pain. No syncope or presyncope. GASTROINTESTINAL: No abdominal pain. No nausea or vomiting. No diarrhea or constipation. No bright red blood per rectum or melena. Appetite is somewhat low secondary to dysgeusia. GENITOURINARY: No dysuria, hematuria or genitourinary discharge. MUSCULOSKELETAL: No focal areas of pain. He reports generalized weakness. NEUROLOGICAL: He denies any headaches or seizure like activity. No complaints of paresthesias to include no tingling or numbness in the hands or feet. HEMATOLOGIC/LYMPHATIC: He denies any free bleeding or easy bruising. He does have some mild bruises at the injection site from Vidaza. He has not noticed any enlarged lymph nodes but does note some new areas, see SKIN. PSYCH: He denies any severe depression but does have some depression at baseline, which tends to wax and wane. He denies any suicidal or homicidal ideation. No severe anxiety. ENDOCRINE: He denies any heat or cold intolerance. He does report generalized fatigue and general weakness with poor endurance. His fatigue has worsened in the last few days. DERM: Patient reports new raised lesion at the left forehead. He believes this is from wearing a cap, although his son-in-law and daughter disagree. There has been no drainage from the area and it is only mildly tender, especially when he wears a cap. He reports a new lesion as well to the right gluteal region. He has not seen any drainage from this area. It is quite tender and quite swollen. The patient believes that something bit or stung him as he first noticed this initially with a shocking type sensation. The patient's son-in-law and daughter, however, disagree with that. The remainder of a 12-point review of systems is performed today and is otherwise negative. PHYSICAL EXAMINATION VITAL SIGNS: No weight today. Weight on June 21, 2018, 75.9 kg. T 101.4 orally today, P 93, R 16, BP 107/71, oxygen saturation 90% on 2L nasal cannula. GENERAL: This is a pleasant, chronically-ill, thin 72-year old gentleman who does appear to be more fatigued and short of breath on exam but otherwise is in no acute distress. There is no stridor and he is able to speak and interact during visit. HEAD: Atraumatic, normocephalic. EYES: Sclerae anicteric. ENT/MOUTH: No signs of thrush. No mucositis or suspicious lesions. FACE: Patient has basal cell carcinoma of the face, noticeable underneath the left eye and neck. He is status post radiation. This has been healing well overall, although has been slow to heal. NECK: Supple. No lymphadenopathy. No JVD. LUNGS: Diminished breath sounds bilaterally but overall are fairly clear. No focal findings to include no wheezes, rales or rhonchi. Chest expansion is symmetrical. Respiratory effort is normal. Expiratory phase is slightly prolonged. No stridor. HEART: Regular rate and rhythm. No ectopy. ABDOMEN: Soft, nontender, nondistended. No organomegaly. EXTREMITIES: No edema. No clubbing or cyanosis. NEUROLOGICAL: Patient is awake, alert and x3. There are no focal motor or sensory deficits. PSYCHIATRIC: Mood and affect appear appropriate today. He is quite interactive during our visit. DERM: Positive for area of the face beneath the left eye that is healing slowly, although is healing status post radiotherapy for his basal cell carcinoma. There is also a new area/abscess lesion noted to the left forehead above the eyebrow. This area measures approximately 2 cm in diameter. It is raised and dome-like. There is a central ulceration noted, although this is dry and not draining. There is another abscess noted to the right glute, which appears worse than the one on the forehead. There is a central ulcerated area as well, which is not draining at this time. There is quite a bit of extensive, firm and tender palpable edema and erythema noted. The abscess itself measures at least 3 cm in diameter. In addition, there is erythema noted to the entire gluteal cleft, consistent with immobility. There is no visible decubitus ulcer. MUSCULOSKELETAL: Gait is not assessed. Patient is currently in a wheelchair due to fatigue. DIAGNOSTIC DATA CBC today: Currently pending during our visit, although after our visit and after this dictation, CBC from today revealed a hemoglobin 7.8 and hematocrit 24.6%. Platelets were 44,000. No other labs are drawn today as patient was instructed to proceed to the emergency room. IMPRESSION/PLAN This is a pleasant 72-year old male with high-risk myelodysplastic syndrome based on positive bone marrow done on May 17, 2018, which showed myeloblasts of 5%. 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 According to the International Prognostic Scoring System, Revised, patient has a score of 5, which puts him as high risk. He had a score of zero for ANC above 0.8, 0.5 for platelets between 50,000 to 100,000, 1.5 for hemoglobin less than 8, a score of 2 for myeloblasts between 5% and 10%, and cytogenetics of 1 based on deletion of chromosome #20. We had hoped patient would start treatment towards mid May, although this was delayed secondary to performance status, anxiety regarding treatment and the need for blood transfusion. He ended up initiating Cycle #1, Day 1 with Vidaza on June 21, 2018. He has now completed all five injections for this first cycle. He tolerated this well. Our plan is to proceed with the second cycle. We also started him on supplemental oxygen, which did seem to help a bit. He does have basal cell carcinoma of the left side of the face, below the left eye and left side of the neck status post radiotherapy, which he completed on May 24, 2018. The area is overall healing well, although it is still open and is slowly healing. Today, he has been seen for acute visit secondary to worsening fatigue, shortness of breath and fevers at home over the last two days, which we were just notified about today. He is febrile today. He also has two abscesses, the one on his right glute most concerning for possible infection. 1. High-risk myelodysplastic syndrome: Patient will continue with Vidaza. He is status post recently completing Cycle #1, which began on June 21, 2018. He has only a couple of bruises noted at injection site, which is to be expected. 2. Basal cell carcinoma of the left side of the face/left eye and left side of the neck: Status post radiation therapy completed on June 03, 2018. No other intervention. We will continue to monitor as this is healing. 3. Abscess: Patient does have a new area on the right glute and left forehead. Concern for infection given his worsening performance status and fever today of 101.4. This is likely unrelated to his Vidaza and certainly his chronic immunocompromised state and pancytopenia related to his myelodysplastic syndrome is a contributing factor. As such, I feel that it is necessary for patient to proceed to the emergency room for evaluation. I suspect that his CBC drawn today, which is currently pending, will reveal decreased hemoglobin and thrombocytopenia. I explained to patient and his son-in-law and daughter that while in the ER, if necessary, he could certainly receive blood transfusion either with PRBCs or platelets. Patient verbalized understanding and agrees with this plan. He will also likely have the abscess drained if possible and be started on either IV fluids and/or IV antibiotics. 4. Patient will return to clinic in one week for followup. 5. I will discuss this with Dr. Salcido when he returns to clinic. 6. Patient incidentally mentioned that he thought he saw thrush. Physical examination of the mouth did not show any signs of thrush. I did instruct him to use some baking soda and warm water gargles for general dryness and general discomfort. WANDY
--- NOTE | 2018-06-30 13:06 | Antimicrobial Stewardship ---
Antimicrobial Stewardship Empiricly appropriate: Yes (Doxycycline, added Vancomycin) Significant PMH: Yes (MDS, pancytopenia, s/p azacidine cycle 1, XRT for basal cell carcinoma) Approriate Cultures done: Yes (Blood Cx pending- Abscess not cultured from forehead) Cultures need repeate: Yes (Abscess on gluteus- I and D, to send for culture) Renal/Hepatic dosing: Yes (CrCl ~85 ml/min, dosing appropriate) Serum concentration checked: Yes (Random Vanco- 9.48, initiated 1.5 g IV Q12H) IV to PO Opportunity: No Determine cumulative duration: 06/30/18 is day 2 of therapy Determine standard duration: Duration likely 10-14 days depending on culture and improvement Comment 72 yo M who presented with fever and multiple abscesses who has MDS s/p cycle 1 of azacitidine (06/21/18 - 06/25/18) who is pancytopenic. Tmax 99.7 RR 38, 4 L O2, has increased BP 90s/60s Lactate 1.7 WBC 3, neutrophils 76%, 4% bands Hgb 6.9 -- prior to transfusion Plt 25K, prior to transfusion Blood Cx x 2 pending Wound Cx - not done yet, possible I and D of gluteal abscess Physical exam reveals bleeding gums, bruising Chest X ray - findings consistent with pneumonitis Doxycycline 100mg IV Q12H Vancomycin 2g x 1, then 1.5 g IV Q12H, trough 07/01/18 @ 1000, goal 15-20 mcg/mL Plan continue IV antibiotics as pt is at risk of MDRO, immunosuppressed and on treatment for MDS. Continue Vancomycin and Doxycycline, blood Cx pending, gluteal wound to be evaluated and possible I and D by surgery. Pending wound culture and blood cultures continue treatment as ordered. Will watch closely. Mercedes Castro, PharmD, BCOP MERCED[facility] CASTRO Jun 30, 2018 13:06
--- NOTE | 2018-06-30 13:29 | NUR ---
Physical Therapy Impression Spoke with RUTHIE Dhaliwal regarding surgical consult. Per Madhuri, General Surgery is recommending no packing of forehead wound and to watch R gluteal wound which may require debridement in the future but does not currently. PT to DC at this time. Please re-consult if gluteal wound requires debridement. Physical Therapy Goals Patient's Goals
--- NOTE | 2018-06-30 15:04 | Medical Nutrition Therapy ---
Nutrition Anthropometrics Height (Inches): 71.00 Height (Calculated Centimeters: 180.413761 Weight (Pounds): 167 Weight (Calculated Kilograms): 75.750 BMI: 23.3 Bob Nutrition Score: Probably Inadequate Bob Nutrition Risk Score: 16 Dietary Referral Nutrition Risk Factors: Nutrition Risk Comment: No molars. Pt states he eats smoothies. Nutritional Diagnosis Nutritional Risk Acuity 2: Abcess/Non-Healing Wound Past Medical History: Metastatic melanoma, pancytopenia Nutrition Diagnosis: Increased Nutrient Needs Nutrition Etiology: Physiological Causes Nutrition Problem/Etiology/Sym: Increased Nutrient Needs related to increased demand for nutrients secondary to wound healing and infection AEB low albumin status indicating increased stress and increased metabolic needs. Energy Requirement: 2360 (MSJ X 1.5) Protein Requirement: 97 (1.3gm/kg) Fluid Requirement: 2250 (30ml/kg) Diet Type: Diet as Tolerated THELMA/REG Nutrition Intervention: Cont diet as ordered, Encourage intake, Between meal supplement Additional Diet Restrictions: OFFER NUT SUPPLMENT Nutrition Monitoring & Eval Nutrition Goals: Eat 75-100% Meal RD Patient Assessment Time: [address] Assessment Type: RD Assessment Patient Nutrition Acuity: 2-Moderate Follow Up Date: Jul 05, 2018 Nutritional Comment: 06/30 Pt admitted for cellulitis with abcess, pancytopenia. pt has hx of melanoma with mets. Alb 3, hgb 6.9, Hct 22.1. Pt on Regular diet and eating 25-50%. Will offer nutr supplment to increase kcal and protein intkae. Will cont to monitor and encourage intake. AMBREEN GONZALES Jun 30, 2018 15:04
--- NOTE | 2018-06-30 15:39 | General Surgery Consultation ---
History of Present Illness Requesting Physician Kim Leon [employer] INTERCEPT CONTROLLER, Hospitalist Service Reason for Consult "Abscesses" on his forehead and buttock region Chief Complaint Skin infections History of Present Illness 72-year-old gentleman with pancytopenia due to myelodysplastic syndrome who just started chemotherapy a week ago presents with 1 week of not feeling well and developing a red painful lump on his forehead as well as an area on his right buttock. He thinks the right buttock was due to a bug bite but does not know what causes the forehead lump. The forehead lump was drained in the emergency room and turned out to be an abscess. Both areas are quite sore. He was admitted last year with a similar type of infection on his lower leg. No other complaints today. History Problems: (1) Pancytopenia Status: Chronic (2) Myelodysplastic syndrome Status: Chronic (3) Anemia Status: Chronic Home Meds Active Scripts Benzonatate 100 Mg Cap (TESSALON PERLE 100 MG CAP) 100 Mg Capsule, 100 MG PO TID PRN for cough, #21 CAP 0 Refills 1 capsule po TID PRN Cough Prov:ROEL PATRICK APRN,SHIRT TRIMMER 06/14/18 Reported Medications Silver Sulfadiazine (SILVADENE) 20 Gm Cream..g., 20 GM TP Apply to affected area 2-3 times per day x 3 weeks 05/25/18 Benzalkonium Chloride (NEOSPORIN) 68 Ml Foam..ml., 0.09 PKT TP 04/02/18 Multivits,Th W-Fe,Other Min (THERA-M) 1 Each Tablet, 1 EACH PO DAILY 04/02/18 Lorazepam (LORAZEPAM) 1 Mg Tab, 1 MG PO PRN, TAB Pt. takes 1 tab before radition. 04/01/18 Polyvinyl Alcohol/Povidone/Pf (REFRESH CLASSIC EYE DROPS) 1 Each Droperette, 1 EACH OP 04/01/18 Dimethicone (RESTORE DIMETHICREME) 118 Ml Cream.ml., 118 ML TP 04/01/18 Polymyxin B Sulf/Trim 10,000 Unt-1 Mg/Ml Op (POLYMYXIN B-TMP EYE DROPS) 10 Ml Drops, 10 ML OP TID, BOT 04/01/18 Allergies: Coded Allergies: codeine (Verified Allergy, Unknown, 06/29/18) Family History: FH: borderline diabetes MOTHER FH: cancer BROTHER OR SISTER Polio MOTHER Review of Systems All Systems Reviewed/Normal: Yes, Except as Noted Exam Vital Signs Vital Signs Date Time Temp Pulse Resp B/P (MAP) Pulse Ox O2 Delivery O2 Flow Rate FiO2 06/30/18 14:45 97.4 73 36 98/51 06/30/18 11:27 94 Nasal Cannula 4.0 General Appearance: Alert, Awake, No Acute Distress, Afebrile ENT: Other (on his forehead to his left of midline is an area of erythema and several areas of skin breakdown including 1 where packing strip has been inserted. I removed the packing strip and the area draining some seropurulent fluid. This area was cleaned up and dressed with a Band-Aid.) Integumentary: Other (on his right superior buttock is a proximate 5 cm area of erythema and there is a central small area of dark discoloration. There is no fluctuance but there is some induration in the central area of erythema.) Medical Decision Making Data Points Result Diagram: 06/30/18 0550 06/29/18 1528 Assessment and Plan Problems: (1) Cellulitis of buttock, right Status: Acute Assessment & Plan: 06/30/18: The forehead abscess has been drained and so really all that needs to be done his IV antibiotics to treat the cellulitic component as well as warm compresses and daily dressing changes. I removed the packing and it does not need to be repacked. I would simply put a clean dressing on it and this should be changed daily. This should be removed when the patient showers and replaced with a new one after he is done showering. No other surgical intervention is warranted at this time for the forehead abscess. (2) Abscess or cellulitis of forehead Status: Acute Assessment & Plan: 06/30/18: The buttock lesion is certainly suspicious for something like a bug bite as the patient reports with a central area of possible necrosis and surrounding erythema consistent with cellulitis. We'll need to follow this area and let the area of necrosis demarcate and potentially this may need to be debrided in the next several days. We'll continue the IV antibiotics to treat the cellulitis and continue to use warm compresses. I will follow along for both of these infections with the hospitalist service. Condition Stable Time Spent: < 30 min Venous Thromboembolism Antithrombotics Is Pt On Any Antithrombotics?: No NYA BLACK MD Jun 30, 2018 15:39
[2018-06-30] MEDS ORDERED: BACI3.5O25 OP (19:27)
[2018-06-30] MEDS ORDERED: CIPR2.5D14 OS (19:27)
[2018-07-01 02:51] VITALS: BP 90/58
[2018-07-01] MEDS: NS(*) 0.9% 1000 ML BAG 1,000 ML IV PRN ×2 (02:53→17:08)
[2018-07-01 06:16] LABS: PLATELET COUNT, AUTOMATED 50 K/uL (150-450)
[2018-07-01 08:37] VITALS: BP 101/60
[2018-07-01] MEDS: DOXYCYCLINE HYCL 100 MG VIAL 100 MG in NS(*) 0.9% 250 ML BAG 250 ML IV SCH ×2 (08:37→20:49)
--- NOTE | 2018-07-01 09:26 | Hospitalist Progress Note ---
Subjective Progress Notes Subjective He was admitted for cellulitis and anemia. He has no complaints this morning. He had no acute events overnight. Patient Complains of: Cardiovascular: No: Chest Pain Respiratory: No: Shortness of Breath Physical Exam Vital Signs Date Time Temp Pulse Resp B/P (MAP) Pulse Ox O2 Delivery O2 Flow Rate FiO2 07/01/18 08:42 92 Nasal Cannula 4.0 07/01/18 08:37 98.5 61 24 101/60 (74) Intake and Output 07/01/18 07:00 Intake Total 5497 ml Balance 5497 ml Intake Oral 960 ml IV Total 3379 ml Blood Product 1158 ml # Voids 5 General Appearance: Alert, Awake, No Acute Distress, Afebrile Neuro: No Gross deficits Cardiovascular: Regular Rate and Rhythm Respiratory: No Respiratory Distress, Clear to Auscultation GI: Soft and Non-Tender Integumentary: Other (wound to left buttocks appears to be draining now, erythema decreased from yesterday.) Psych: Alert & Oriented X3, Appropriate Mood & Affect Result Diagram: 07/01/1852907/01/18529 Assessment and Plan Problems: (1) Pancytopenia Status: Chronic Assessment & Plan: Chronic, Hgb near 7 on admission, increased to 8.4 with 3 units PRBC transfused. He received 1 unit platelet secondary to bleeding gums 06/30. Recent transfusion and Hgb dropped from 9 to 7.3 on admission, poor prognosis given transfusion dependence. (2) MDS (myelodysplastic syndrome) Status: Acute Assessment & Plan: Started chemotherapy with Vidaza one week before admission. Fatigue common side effect. Will check LDH, Kaur test, and Haptoglobin to assess for hemolysis. (3) Cellulitis Assessment & Plan: On left forehead- abscess drained in ER and packed, IV vancomycin and Rocephin in ER. He was placed on doxycycline and Vancomycin IV. Also has wound/cellulitis to left buttocks. Exam Sepsis Risk: No Definite Risk AMEENA ALFARO DISABILITIES CAREGIVER Jul 01, 2018 09:26
[2018-07-01] MEDS: VANCOMYCIN(*) 1 GM VIAL 1 GM, VANCOMYCIN (*) 0.5 GM VIAL 0.5 GM in NS(*) 0.9% 250 ML BA... IVPB SCH ×2 (10:39→23:16)
[2018-07-01 15:25] VITALS: BP 91/58
[2018-07-01] MEDS: DOCUSATE SODIUM 100 MG CAP PO SCH ×2 (15:38→21:00)
[2018-07-01 18:45] VITALS: BP 104/65
[2018-07-02 01:30] VITALS: BP 113/64
[2018-07-02 04:45] VITALS: BP 115/72
[2018-07-02] MEDS: NS(*) 0.9% 1000 ML BAG 1,000 ML IV PRN ×3 (05:43→23:46)
[2018-07-02 07:08] LABS: PLATELET COUNT, AUTOMATED 43 K/uL (150-450)
[2018-07-02 09:13] VITALS: BP 108/73
[2018-07-02] MEDS: CLINDAMYCIN 150 MG CAP PO SCH ×3 (09:22→21:15)
[2018-07-02] MEDS: DOCUSATE SODIUM 100 MG CAP PO SCH ×2 (09:22→21:15)
--- NOTE | 2018-07-02 13:12 | Hospitalist Progress Note ---
Subjective Progress Notes Subjective He was admitted for cellulitis. The cellulitis areas have improved. He has no complaints. He feels well overall. Patient Complains of: Cardiovascular: No: Chest Pain Respiratory: No: Shortness of Breath Physical Exam Vital Signs Date Time Temp Pulse Resp B/P (MAP) Pulse Ox O2 Delivery O2 Flow Rate FiO2 07/02/18 09:13 98.3 64 24 108/73 (85) 91 Nasal Cannula 4.0 Intake and Output 07/02/18 07:00 Intake Total 3550 ml Output Total 1010 ml Balance 2540 ml Intake Oral 520 ml IV Total 3030 ml Output Urine Total 1010 ml # Voids 12 # Bowel Movements 1 General Appearance: Alert, Awake, No Acute Distress, Afebrile Neuro: No Gross deficits Cardiovascular: Regular Rate and Rhythm Respiratory: No Respiratory Distress, Clear to Auscultation GI: Soft and Non-Tender Integumentary: Other (erythema improving to left upper buttocks) Psych: Alert & Oriented X3, Appropriate Mood & Affect Result Diagram: 07/02/1810 07/02/18609 Assessment and Plan Problems: (1) Pancytopenia Status: Chronic Assessment & Plan: Chronic, Hgb near 7 on admission, increased to 8.4 with 3 units PRBC transfused. He received 1 unit platelet secondary to bleeding gums 06/30. Recent transfusion and Hgb dropped from 9 to 7.3 on admission, poor progno sis given transfusion dependence. Improved, he will continue to follow with cancer center. (2) MDS (myelodysplastic syndrome) Status: Acute Assessment & Plan: Started chemotherapy with Vidaza one week before admission. Fatigue common side effect. LDH is normal at 476, Kaur test and Haptoglobin pending. (3) Cellulitis Assessment & Plan: On left forehead- abscess drained in ER and packed, IV vancomycin and Rocephin in ER. He was placed on doxycycline and Vancomycin IV. Also has wound/cellulitis to left buttocks, which appears to be spider bite as he has some necrosis to center of wound. He will be transitioned to Clindamycin, as this is likely Staph Aureus but there are no cultures. He can likely discharge tomorrow if wound continues healing. Exam Sepsis Risk: No Definite Risk AMEENA ALFARO OIL REFINER Jul 02, 2018 13:12
[2018-07-02 15:28] VITALS: BP 106/80
[2018-07-02 19:24] VITALS: BP 107/65
[2018-07-02] MEDS ORDERED: diphenhydrAMINE 25 MG CAP PO PRN (23:35)
[2018-07-03 04:02] VITALS: BP 95/52
[2018-07-03 06:58] LABS: PLATELET COUNT, AUTOMATED 26 K/uL (150-450)
--- NOTE | 2018-07-03 09:13 | General Surgery Progress Note ---
Subjective Progress Notes Subjective No new complaints this morning. WBC is down to 1.5. Physical Exam Vital Signs Date Time Temp Pulse Resp B/P (MAP) Pulse Ox O2 Delivery O2 Flow Rate FiO2 07/03/18 08:22 90 Nasal Cannula 3.0 07/03/18 07:09 54 24 07/03/18 04:02 98.0 95/52 (66) Intake and Output 07/03/18 07:00 Intake Total 3317 ml Output Total 875 ml Balance 2442 ml Intake Oral 1000 ml IV Total 2317 ml Output Urine Total 875 ml # Voids 6 # Bowel Movements 1 General Appearance: Alert, Awake, No Acute Distress, Afebrile ENT: Other (Forehead region fluctuant and so I reopened and repacked the wound.) Integumentary: Other (Right buttock wound is clean and dry. Central area of necrosis is autodebriding. Surrounding area of erythema is stable. Not much TTP in this area.) Result Diagram: 07/03/18 0557 07/03/18 0557 Assessment and Plan Problems: (1) Cellulitis of buttock, right Status: Acute Assessment & Plan: 06/30/18: The forehead abscess has been drained and so reall y all that needs to be done his IV antibiotics to treat the cellulitic component as well as warm compresses and daily dressing changes. I removed the packing and it does not need to be repacked. I would simply put a clean dressing on it and this should be changed daily. This should be removed when the patient showers and replaced with a new one after he is done showering. No other surgical intervention is warranted at this time for the forehead abscess. 07/03/18: Forehead fluid collection redrained and repacked this morning. Continue would care. (2) Abscess or cellulitis of forehead Status: Acute Assessment & Plan: 06/30/18: The buttock lesion is certainly suspicious for something like a bug bite as the patient reports with a central area of possible necrosis and surrounding erythema consistent with cellulitis. We'll need to follow this area and let the area of necrosis demarcate and potentially this may need to be debrided in the next several days. We'll continue the IV antibiotics to treat the cellulitis and continue to use warm compresses. I will follow along for both of these infections with the hospitalist service. 07/03/18: Buttock lesion looks good. Continue would care. Condition Stable. Time Spent: < 30 min Exam Sepsis Risk: No Definite Risk NYA BLACK MD Jul 03, 2018 09:13
[2018-07-03] MEDS: DOCUSATE SODIUM 100 MG CAP PO SCH (09:40)
[2018-07-03] MEDS: CLINDAMYCIN 150 MG CAP PO SCH ×2 (09:40→14:06)
[2018-07-03 10:54] VITALS: BP 106/67
[2018-07-03] MEDS ORDERED: CLIN-75 PO (12:46)
--- NOTE | 2018-07-03 13:03 | Hospitalist Depart ---
Discharge Summary Reason for Hosp/Final Diag: (1) Cellulitis Hospital Course & Plan: He presented with a fever and abscess on the forehead and buttock. On left forehead- abscess drained in ER and then again today. It has been packed. Also has wound/cellulitis to left buttocks, it was drained in the ER. He was initially placed on doxycycline and Vancomycin IV. He has been afebrile and the cellulitis has been improving. Then, he was transitioned to Clindamycin, as this is likely Staph Aureus but there are no cultures. Home on 7 more days of clindamycin because he is immune compromised. See below. (2) Pancytopenia Status: Chronic Hospital Course & Plan: Chronic, Hgb near 7 on admission, increased to 8.4 with 3 units PRBC transfused and has remained stable. He received 1 unit platelet secondary to bleeding gums 06/30. No more bleeding issues, but platelet count d own. WBC trending down and now neutropenic (ANC about 700). See below. (3) MDS (myelodysplastic syndrome) Status: Acute Hospital Course & Plan: Started chemotherapy with Vidaza one week before admission. Worsening pancytopenia and fatigue common side effect. LDH is normal at 476. Haptoglobin mildly elevated at 290. Kaur test pending. I spoke with Dr. Walter about the new neutropenia and the decreasing platelet count. He thought that the patient can go home with close lab follow up and for the patient to watch for fevers. Departure Weight (Pounds): 167 Result Diagram: 07/03/18 0507/03/18 05 Item Value Date Time Hemoglobin 6.9 g/dL *L 06/30/18 0550 Hemoglobin 8.4 g/dL *L 07/01/18 05 Hemoglobin 8.4 g/dL *L 07/02/18 0610 Hemoglobin 8.5 g/dL *L 07/03/18 0557 White Blood Count 1.6 k/uL *L 07/03/18 0557 White Blood Count 2.4 k/uL L 07/02/18 0610 White Blood Count 2.6 k/uL L 07/01/18 0530 White Blood Count 3.0 k/uL L 06/30/18 0550 Neutrophils % (Manual) 76 % H 06/30/18 0550 Neutrophils % (Manual) 70 % 07/01/18 0530 Neutrophils % (Manual) 73 % H 07/02/18 0610 Neutrophils % (Manual) 36 % L 07/03/18 0557 Band Neutrophils % 10 % 07/03/18 0557 Band Neutrophils % 1 % 07/02/18 0610 Band Neutrophils % 2 % 07/01/18 0530 Band Neutrophils % 4 % 06/30/18 0550 Haptoglobin 290 mg/dL H 07/01/18 0530 Lactate Dehydrogenase 476 U/L 07/01/18 0530 Creatinine 0.60 mg/dl L 07/01/18 0530 Blood Urea Nitrogen 10 mg/dl 07/01/18 0530 Sodium Level 136 mmol/L L 07/01/18 0530 Potassium Level 3.9 mmol/L 07/01/18 0530 Chloride Level 109 mmol/L H 07/01/18 0530 Carbon Dioxide Level 24 mmol/L 07/01/18 0530 Total Bilirubin 0.6 mg/dl 07/02/18 0610 Aspartate Amino Transf (AST/SGOT) 25 U/L 07/02/18 0610 Alanine Aminotransferase (ALT/SGPT) 36 U/L 07/02/18 0610 Alkaline Phosphatase 49 U/L 07/02/18 0610 Influenza Virus Type A (PCR) Negative 06/29/181544 Influenza Virus Type B (PCR) Negative 06/29/181544 Condition: Improved Discharge: Home Discharge Instructions Home Meds Active Scripts Clindamycin Hcl (CLINDAMYCIN HCL) 150 Mg Capsule, 300 MG PO TID, #21 CAPSULE Prov:HAZEL JUAREZ MD 07/03/18 Benzonatate 100 Mg Cap (TESSALON PERLE 100 MG CAP) 100 Mg Capsule, 100 MG PO TID PRN for cough, #21 CAP 0 Refills 1 capsule po TID PRN Cough Prov:ROEL PATRICK APRN, FNP 06/14/18 Reported Medications Ciprofloxacin Hcl (CIPROFLOXACIN HCL) 2.5 Ml Drops, 1 DROP OS TID 06/30/18 Bacitracin/Polymyxin B Sulfate (BACITRACIN-POLYMYXIN EYE OINT) 3.5 Gm Oint...g., 0.25 UNIT OP TID 06/30/18 Silver Sulfadiazine (SILVADENE) 20 Gm Cream..g., 20 GM TP Apply to affected area 2-3 times per day x 3 weeks 05/25/18 Benzalkonium Chloride (NEOSPORIN) 68 Ml Foam..ml., 0.09 PKT TP 04/02/18 Multivits,Th W-Fe,Other Min (THERA-M) 1 Each Tablet, 1 EACH PO DAILY 04/02/18 Lorazepam (LORAZEPAM) 1 Mg Tab, 1 MG PO PRN, TAB Pt. takes 1 tab before radition. 04/01/18 Polyvinyl Alcohol/Povidone/Pf (REFRESH CLASSIC EYE DROPS) 1 Each Droperette, 1 EACH OP 04/01/18 Dimethicone (RESTORE DIMETHICREME) 118 Ml Cream.ml., 118 ML TP 04/01/18 Discontinued Reported Medications Polymyxin B Sulf/Trim 10,000 Unt-1 Mg/Ml Op (POLYMYXIN B-TMP EYE DROPS) 10 Ml Drops, 10 ML OP TID, BOT 04/01/18 Diet: Regular Activity: As Tolerated Special Instructions: CBC on 07/05/18 to follow up labs. Avoid people who have active infections. Wash hands regularly. Follow up with Dr. Carter as scheduled. Go to the ER for spontaneous bleeding, fevers or worsening of skin infection. Followup with the Cancer Center as scheduled. Copies to: RIMMA WALTER MD ; Venous Thromboembolism Antithrombotics Is Pt On Any Antithrombotics?: HAZEL Padron MD Jul 03, 2018 13:03
== END 2018-07-03 14:25 | disposition home or self-care (01) | DRG 603 ==
LOC: ER 16:00 → MED 19:01 → INTOOBSV 19:01 → OBSVTOIN 06-30
PROVIDERS: ADMIT Internal Medicine; ATTEND Internal Medicine
PROC: 30233R1 Transfusion of Nonautologous Platelets into Peripheral Vein, Percutaneous Approach (ICD-10-PCS; principal; 2018-06-30)
PROC: 30233N1 Transfusion of Nonautologous Red Blood Cells into Peripheral Vein, Percutaneous Approach (ICD-10-PCS; 2018-06-30)
PROC: 0H98XZZ Drainage of Buttock Skin, External Approach (ICD-10-PCS; 2018-06-30)
PROC: 0H91XZZ Drainage of Face Skin, External Approach (ICD-10-PCS; 2018-06-30)
DX: L03.317 Cellulitis of buttock (principal); L02.01 Cutaneous abscess of face; D61.818 Other pancytopenia; I96 Gangrene, not elsewhere classified; L02.31 Cutaneous abscess of buttock; D46.9 Myelodysplastic syndrome, unspecified; D70.9 Neutropenia, unspecified; C44.319 Basal cell carcinoma of skin of other parts of face; C44.41 Basal cell carcinoma of skin of scalp and neck; B95.61 Methicillin susceptible Staphylococcus aureus infection as the cause of diseases classified elsewhere; Z99.81 Dependence on supplemental oxygen
CPT/HCPCS: 36415; 71045; 80202; 82040; 82247; 82310; 82374; 82435; 82565; 82947; 83010; 83605; 83615; 84075; 84132; 84155; 84295; 84450; 84460; 84520; 85025; 86644; 86850; 86880; 86900; 86901; 86920; 87040; 87502; 97163; G0378; J0696; J2405; J3010; J3370; J3490; J7030; J7040; J7050; P9016; P9035; Q0163

== ENCOUNTER → 2018-07-05 | Outpatient (CLI) | payer MEDICARE ==
[2018-01-22 19:25] VITALS: BMI 23.7
[~2018-07-05] MED LIST changes: +BACI3.5O25 OP; +CIPR2.5D14 OS; +CLIN-75 PO
[2018-07-05 12:57] LABS: PLATELET COUNT, AUTOMATED 17 K/uL (150-450)
== END ==
LOC: LAB 12:12
PROVIDERS: ATTEND Internal Medicine Hematology
DX: D64.9 Anemia, unspecified (principal)
CPT/HCPCS: 36415; 85025

== ENCOUNTER 2018-09-01 10:05 | Emergency (ER) | payer MEDICARE ==
[2018-01-22 19:25] VITALS: Wt 74.8 kg
--- NOTE | 2018-09-01 11:01 | RADIOLOGY IMAGING REPORT ---
[place] [facility] [place] NAME: Gaurav Sewell : 1945 MR: [id number] V: [id number] EXAM DATE: ORDERING PHYSICIAN: LEX FISHER TECHNOLOGIST: Location: [facility] [place] Patient: Gaurav Sewell : 1945 Visit/Account:[id number] Date of Sevice: 09/01/2018 Exam type: KUB SINGLE VIEW ABDOMEN History: constipation Comparison: None. Findings: There is a moderate amount of fecal material seen throughout colon can be seen with constipation as t he clinical history suggests. There is no gross evidence of organomegaly. Calcified phlebolith is n oted in the pelvis. There are spondylotic changes of lumbar spine. Moderate degenerative changes of both hip joints also present IMPRESSION: 1. Moderate amount of fecal material seen throughout colon consistent with the clinical history of c onstipation Report Dictated By: Disha Gray MD at 09/01/2018 10:55 AM Report E-Signed By: Disha Gray MD at 09/01/2018 10:56 AM WSN:[email or web address]
[2018-09-01] MEDS ORDERED: LORazepam 1 MG TAB PO ONE (12:10)
[2018-09-01] MEDS ORDERED: NITROGLYCERIN OINT 1 GM PKT TP ONE (12:25)
[2018-09-01] MEDS ORDERED: POLY17PO25 PO (14:01)
--- NOTE | 2018-09-01 14:01 | ER Report ---
History and Physical Time Seen By MD: 10:09 Hx. of Stated Complaint: Pt. feels constipated. No BM for 3 days. He has been taking stool softeners, but nothing is helping. Abdominal pain when sitting up, but eases when he lays flat. HPI/ROS CHIEF COMPLAINT: Constipation HISTORY OF PRESENT ILLNESS: Patient is 72-year-old male presents emergency department with complaint of constipation. States that is been unable to have bowel movement. Notes some rectal pressure but no significant abdominal pain. No nausea or vomiting. No fevers or chills no chest pain or shortness of breath. REVIEW OF SYSTEMS: Respiratory: No cough, no dyspnea. Cardiovascular: No chest pain, no palpitations. Gastrointestinal: No vomiting, no abdominal pain. Constipation Musculoskeletal: No back pain. Allergies: Coded Allergies: codeine (Verified Allergy, Unknown, 09/01/18) Home Meds Active Scripts Polyethylene Glycol 3350 (MIRALAX) 17 Gm Powd.pack, 17 GM PO QDAY for 7 Days, #7 PKT 0 Refills Prov:LEX FISHER MD 09/01/18 Clindamycin Hcl (CLINDAMYCIN HCL) 150 Mg Capsule, 300 MG PO TID, #21 CAPSULE Prov:HAZEL JUAREZ MD 07/03/18 Benzonatate 100 Mg Cap (TESSALON PERLE 100 MG CAP) 100 Mg Capsule, 100 MG PO TID PRN for cough, #21 CAP 0 Refills 1 capsule po TID PRN Cough Prov:ROEL PATRICK APRN,[employer]CIALTY MANU[employer]URING SUPERVISOR 06/14/18 Reported Medications Ciprofloxacin Hcl (CIPROFLOXACIN HCL) 2.5 Ml Drops, 1 DROP OS TID 06/30/18 Bacitracin/Polymyxin B Sulfate (BACITRACIN-POLYMYXIN EYE OINT) 3.5 Gm Oint...g., 0.25 UNIT OP TID 06/30/18 Silver Sulfadiazine (SILVADENE) 20 Gm Cream..g., 20 GM TP Apply to affected area 2-3 times per day x 3 weeks 05/25/18 Benzalkonium Chloride (NEOSPORIN) 68 Ml Foam..ml., 0.09 PKT TP 04/02/18 Multivits,Th W-Fe,Other Min (THERA-M) 1 Each Tablet, 1 EACH PO DAILY 04/02/18 Lorazepam (LORAZEPAM) 1 Mg Tab, 1 MG PO PRN, TAB Pt. takes 1 tab before radition. 04/01/18 Polyvinyl Alcohol/Povidone/Pf (REFRESH CLASSIC EYE DROPS) 1 Each Droperette, 1 EACH OP 04/01/18 Dimethicone (RESTORE DIMETHICREME) 118 Ml Cream.ml., 118 ML TP 04/01/18 Past Medical/Surgical History Noncontributory towards this chief complaint Hx Smoking: No Smoking Status: Never Smoker Exposure to Second Hand Smoke?: No Hx Substance Use Disorder: No Hx Alcohol Use: No Constitutional Vital Sign - Last 24 Hours 09/01/18 09/01/18 09/01/18 09/01/18 10:09 10:10 10:15 10:20 Temp 97.5 Pulse 73 71 72 B/P (MAP) 112/78 112/78 (89) Pulse Ox 94 96 94 O2 Delivery Room Air 09/01/18 09/01/18 09/01/18 09/01/18 10:25 10:30 10:35 10:40 Pulse 69 71 70 73 B/P (MAP) 102/71 (81) Pulse Ox 94 91 95 93 09/01/18 09/01/18 09/01/18 09/01/18 10:45 10:50 10:55 11:00 Pulse 69 69 67 69 B/P (MAP) 105/66 (79) Pulse Ox 94 93 94 89 09/01/18 09/01/18 09/01/18 09/01/18 11:05 11:10 11:15 11:20 Pulse 68 68 72 69 Pulse Ox 91 93 89 92 09/01/18 09/01/18 09/01/18 09/01/18 11:29 11:30 11:35 11:40 Pulse 73 ??? 74 B/P (MAP) 123/76 (92) Pulse Ox 93 92 94 09/01/18 09/01/18 09/01/18 09/01/18 11:45 11:50 11:55 12:05 Pulse 72 83 80 93 Pulse Ox 95 92 91 94 09/01/18 09/01/18 09/01/18 09/01/18 12:10 12:16 12:20 12:25 Pulse 115 80 73 B/P (MAP) 124/65 (84) 109/74 (86) Pulse Ox 95 97 96 09/01/18 09/01/18 09/01/18 09/01/18 12:30 12:40 12:45 12:50 Pulse 92 77 78 B/P (MAP) 117/24 (55) Pulse Ox 96 96 96 98 09/01/18 09/01/18 09/01/18 09/01/18 12:55 13:00 13:05 13:10 Pulse 75 70 70 B/P (MAP) 89/58 (68) Pulse Ox 97 97 97 09/01/18 09/01/18 09/01/18 09/01/18 13:15 13:20 13:25 13:30 Pulse 72 70 68 67 B/P (MAP) 86/57 (67) Pulse Ox 97 97 96 97 09/01/18 09/01/18 09/01/18 09/01/18 13:35 13:40 13:45 13:50 Pulse 77 67 63 70 Pulse Ox 96 98 97 98 09/01/18 09/01/18 09/01/18 09/01/18 13:55 14:00 14:05 14:09 Pulse 70 72 75 B/P (MAP) 82/49 (60) 100/61 (74) Pulse Ox 96 97 96 09/01/18 14:10 Pulse 89 B/P (MAP) 103/70 (81) Pulse Ox 96 Physical Exam General Appearance: The patient is alert, has no immediate need for airway protection and no current signs of toxicity. Respiratory: Chest is non tender, lungs are clear to auscultation. Cardiac: regular rate and rhythm [ ] Gastrointestinal: Abdomen is soft and non tender, no masses, bowel sounds normal. Rectal exam: normal tone, large amount of hard fecal matter, disimpacted Musculoskeletal: Neck: Neck is supple and non tender. Extremities have full range of motion and are non tender. Skin: No rashes or lesions. Medical Decision Making EKG/Imaging Imaging FACILITY: [facility] - [place] PATIENT NAME: Gaurav Sewell : 1945 MR: [id number] V: [id number] EXAM DATE: ORDERING PHYSICIAN: LEX FISHER TECHNOLOGIST: [place]: [facility] [place] Patient: Gaurav Sewell : 1945 Visit/Account:[id number] Date of : 09/01/2018 Exam type: KUB SINGLE VIEW ABDOMEN History: constipation Comparison: None. Findings: There is a moderate amount of fecal material seen throughout colon can be seen with constipation as the clinical history suggests. There is no gross evidence of organomegaly. Calcified phlebolith is noted in the pelvis. There are spondylotic changes of lumbar spine. Moderate degenerative changes of both hip joints also present IMPRESSION: 1. Moderate amount of fecal material seen throughout colon consistent with the clinical history of constipation Report Dictated By: Disha Gray MD at 09/01/2018 10:55 AM Report E-Signed By: Disha Gray MD at 09/01/2018 10:56 AM WSN:STARR ED Course/Re-evaluation ED Course Patient improved after disimpaction was sent home with MiraLAX and follow-up primary care provider Decision to Disposition Date: Sep 01, 2018 Decision to Disposition Time: 14:00 Depart Departure Latest Vital Signs Vital Signs Date Time Temp Pulse Resp B/P (MAP) Pulse Ox O2 Delivery O2 Flow Rate FiO2 09/01/18 14:10 89 103/70 (81) 96 09/01/18 10:09 97.5 Room Air Impression: Primary Impression: Constipation Condition: Improved Disposition: HOME OR SELF-CARE New Scripts Polyethylene Glycol 3350 (MIRALAX) 17 Gm Powd.pack 17 GM PO QDAY for 7 Days, #7 PKT 0 Refills Prov: LEX FISHER MD 09/01/18 Departure Forms: ER Transition Record, Medications Reconciliation, Patient Portal Information Patient Instructions: Constipation (ED) Problem Qualifiers Primary Impression: Constipation Constipation type: slow transit constipation Qualified Codes: K59.01 - Slow transit constipation LEX FISHER MD Sep 01, 2018 14:01
[2018-09-01 14:10] VITALS: BP 103/70
== END 2018-09-01 14:13 | disposition home or self-care (01) ==
LOC: ER 10:19
DX: K59.01 Slow transit constipation (principal)
CPT/HCPCS: 74018; 99283; A9270

== ENCOUNTER 2018-09-14 11:12 | Outpatient (RCR) | payer MEDICARE ==
[2018-01-22 19:25] VITALS: Ht 181.6 cm; Wt 75.8 kg
[2018-06-21 12:34] VITALS: BP 117/67
--- NOTE | 2018-06-22 00:54 | PROGRESS NOTE ---
DATE: June 21, 2018 BRIEF NOTE Patient was seen today for followup and to initiate Cycle #1 with Vidaza. Please see followup note for today's date of service. When patient presented, he was found to be hypoxemic with oxygen saturation level between 83% to 89% on room air. Initially, while seated at rest, he was 83% on room air and came up to 84%. With ambulation, and only walking a few steps, his oxygen saturation level remained low and between 85% to 89% on room air. As such, we are going to see if we can help him obtain oxygen until this is evaluated either by PCP or other physician. WANDY
--- NOTE | 2018-06-22 05:27 | ONCOLOGY FOLLOW UP NOTE ---
EVENT DATE: June 21, 2018 DIAGNOSES 1. Myelodysplastic syndrome, high risk by International Prognostic Scoring System, Revised (IPSS-R). 2. Pancytopenia due to myelodysplastic syndrome. 3. Basal cell carcinoma of the face and neck. CHIEF COMPLAINT Patient is here today for followup after Vidaza Cycle #1 was held last week secondary to worsening anemia and performance status. He is status post two units of packed red blood cells one week ago. He is accompanied by his son-in-law, Ismael. HEMATOLOGY/ONCOLOGY HISTORY Patient is a 72-year old male who was diagnosed four years ago with basal cell carcinoma of the left side of the face and left side of the neck, and patient at that time was considered inoperable, so he did not receive any treatment or resection, and patient declined radiation therapy at that time. Patient moved from [place] to [place] five months ago. He has been seen by Dr. Carter recently for an abscess on the right leg, and patient was referred because of his basal cell carcinoma of the left side of the face, below the left eye, and left side of the neck. Patient has started radiation therapy here in [place] for that recently, and he is still on radiation therapy with improvement. Patient also found to have pancytopenia. His white count was 2.3, hemoglobin 9.1, hematocrit 29.6, platelet 64,000. ANC was 0.8. He has some blood work for the pancytopenia. His vitamin B12 was 192, near the lower end of normal, but methylmalonic acid assay was normal at 0.28. Serum folate was more than 22.3. TSH was 3.1. Serum protein electrophoresis showed normal pattern. Normal monoclonal protein. Patient had bone marrow aspiration biopsy done on the April, and the diagnosis came back positive for myelodysplastic syndrome with 5% to 9% blasts. 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 He had a score of 5 according to the IPSS-R/prognostic score system. Our plan was for patient to initially start Cycle #1 with Vidaza subcutaneous a couple of weeks ago, though he postponed this each time due to worsening fatigue and overall performance status. Last week he was found to have worsening neutropenia, requiring blood transfusion with two units of packed red blood cells. HISTORY OF PRESENT ILLNESS The patient is here today for followup after being seen last week and having Vidaza Cycle #1 postponed. He is due to initiate Vidaza today. He did have questions last week about starting Vidaza, and also had worsening fatigue, generalized weakness and malaise last week, as well as worsening dyspnea on exertion and shortness of breath. He also noted some worsening cough and mucus accumulation. He was having difficulty even with ADLs as a result of his symptomatology, largely as a result of his fatigue and dyspnea on exertion. He has had some generalized throat pain, though this is better today. He does continue to have an open area below the left eye which is healing, although last week this flared and seemed to be more inflamed. This is better today. He denies any fevers. He continues to report some dysgeusia and reports that nothing tastes good other than chocolate. He completed radiotherapy on 06/03/2018. He continued to use some [id number] measures for his cough, as well as a humidifier and some [id number] syrup. We also started him on Tessalon Perles p.r.n. last week, which he believes has helped a bit. He is not on any prescription pain medication. He denies any suicidal ideations since I saw him last, and reports that overall he has been in good spirits. He tells me that he felt tremendously better for at least three days following blood transfusion. Today he is feeling a bit more tired, but nothing compared to last week. He has MDS and has had pancytopenia in the past. He has been on radiation therapy for his basal cell carcinoma on the left side of the face, below the left eye, and the left side of the neck. He has occasional epistaxis, though none recently. He has had quite a bit of anxiety regarding his general disease state and treatment with Vidaza. He denies any rectal bleeding or hematuria. He continues to report a decreased appetite. He believes the area under his left eye is improving. His energy level and his shortness of breath have overall improved over the last week. 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 PAST SURGICAL HISTORY 1. Pilonidal sinus removal. 2. Tonsillectomy. FAMILY HISTORY Father had melanoma. Sister had breast cancer. SOCIAL HISTORY Patient is with two children. 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 Denies any abuse of tobacco, alcohol, or illicit drugs. CURRENT MEDICATIONS None. ALLERGIES No known drug allergies. REVIEW OF SYSTEMS CONSTITUTIONAL: Patient continues to report some generalized fatigue and weakness, though this has improved significantly compared to last week. He denies any recent fevers, chills, or infections. He denies any night sweats. He has ongoing anorexia, largely related to dysgeusia. HEENT: Patient continues to have an open lesion below the left eye. This is slowly healing. He has not had any drainage there. This has improved compared to last week. No recent epistaxis. He does have some mucus production and some hoarseness, secondary to radiotherapy. RESPIRATORY: Patient continues to have a cough, which has improved over the last week. This is productive of thick clear to white-colored sputum. He has not had any epistaxis. No hemoptysis. He continues to note some dyspnea on exertion and occasional shortness of breath, though this has improved since blood transfusion. CARDIOVASCULAR: He denies any chest pain. He denies any palpitations. He denies any syncope or presyncope. GASTROINTESTINAL: No abdominal pain, nausea or vomiting. He has had both constipation and diarrhea in the past. He tends to have more constipation. Bowels have been normal recently. He is using stool softener as well as prune juice. Appetite has been consistently low and decreasing, likely related to taste changes. MUSCULOSKELETAL: No focal areas of pain. He reports generalized weakness. ENDOCRINE: He reports ongoing fatigue and overall poor endurance. This is better compared to last week. HEME/LYMPH: He denies any bleeding or excessive bruising. DERM: He denies any rash or skin lesions. PSYCH: He denies any severe anxiety or depression, denies any suicidal or homicidal ideation. He tells me he is in good spirits. He has not had any suicidal thoughts, not even in fleeting moments as he reported last week. The patient's son-in-law is with him today. He reports that patient has felt better in the last week. The remainder of a 12-point review of systems is performed today and is otherwise negative. PHYSICAL EXAMINATION VITAL SIGNS: Weight today is 75.9 kg, down 5 kg compared to 05/28/18. This will need to be monitored. Temperature 99.4, P 83, R 16, BP 117/67, oxygen saturation 96% after 3L nasal cannula. Initially, oxygen saturation was anywhere between 84% and 89%, and this was at rest on room air. GENERAL: In general, this is a pleasant 72-year-old gentleman who appears chronically ill, thin, though is in no acute distress. He is not having as much noticeable dyspnea on exertion compared to one week ago. No stridor. HEAD: Atraumatic, normocephalic. EYES: Nonicteric sclerae. Patient continues with lesion noted under the left eye. This appears improved compared to last week and is not visibly draining and is less erythematous. ENT/MOUTH: Patient has noticeable hoarseness. There is clear rhinorrhea noted to bilateral turbinates. NECK: Supple. no lymphadenopathy. No JVD. 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 The area seems dry. LUNGS: Clear breath sounds to auscultation of upper lobes with diminished bases bilaterally. No shortness of breath on exam, and no stridor. No wheezes, rales or rhonchi. No dullness to percussion. Respiratory effort is normal. Expiratory phase is prolonged. Oxygen saturation levels were checked several times today. At rest on room air he was at low as 83% to 89%. He was approximately 84% to 85% on room air while ambulating a few steps. This then improved up to 96% with 2L to 3L nasal cannula. CARDIAC: Regular rate and rhythm. No ectopy. PSYCH: Mood and affect are appropriate today. He appears to be in better spirits today. NEURO: Patient is awake, alert, oriented x3. DERM: Patient has an area of dry desquamation to the left anterior neck secondary to radiotherapy. Patient continues with left under-eye lesion as well. Cursory examination does not reveal any new lesions, rash, bruises, petechiae or purpura. MUSCULOSKELETAL: No pain to palpation in the bony spinous processes. Gait was not assessed today; however, patient was not using a wheelchair today as he was last week, which he used due to worsening fatigue and dyspnea on exertion. LABORATORY CBC today: WBC 3.1, ANC 1.7, hemoglobin 9.0, improved from 6.9 one week ago, hematocrit 29.2%, platelets 63,000. CMP today: Normal sodium at 137, potassium 3.8 and normal, serum creatinine normal at 0.90, glucose elevated at 159, calcium normal at 8.8, total bilirubin normal at 0.7, AST mildly elevated at 39 (up from 34), ALT 52 and normal, alkaline phosphatase normal at 74, total protein normal at 7.3, albumin normal at 3.6. IMAGING CT soft tissue neck at [facility] on April 28, 2018: (1) A 4.7 x 1.6 x 2.4 cm mass in the left anterior neck at the level of the larynx, involving the skin and subcutaneous fat. The adjacent platysma muscle is also thickened. Given the rapid onset, this is most likely infection superimposed upon the basal cell carcinoma. No evidence of abscess. (2) Stable mild focal skin thickening just below the left orbit and above the right clavicle. (3) Stable bilateral thyroid nodules. (4) Stable borderline-enlarged right submandibular, right level 3 and left level 4 lymph nodes measuring 1.2 x 0.8 cm, 0.8 x 0.8 cm, and 1.2 x 0.7 cm respectively. (5) Decreased mucosal thickening in the paranasal sinuses compared with March 30, 2017. IMPRESSION AND PLAN This is a 72-year-old male with high-risk myelodysplastic syndrome based on positive bone marrow done on the April, which showed myeloblasts of 5%. 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 According to the International Prognostic Scoring System, Revised, patient has a score of 5, which puts him as high risk. Given that, he has a score of zero for ANC above 0.8, 0.5 for platelets between 50,000 to 100,000, 1.5 for hemoglobin less than 8, a score of 2 for myeloblasts between 5 to 10, and cytogenetics of 1 based on the lesion of chromosome #20, so the patient is considered high risk of myelodysplastic syndrome. Patient has met with his medical oncologist, Dr. Salcido, and discussed treatment with Vidaza. He and I have had previous followups as well as formal chemotherapy teaching session for Jenniferdaza. He has been extremely anxious about initiating treatment. He has also felt unwell and reported worsening performance status a couple of weeks ago, and treatment was therefore held. Last week, he had worsening performance status, evidenced by worsening dyspnea on exertion and shortness of breath, and had worsening anemia with a hemoglobin which had dropped down to 6.9. As such, initiation of Vidaza was placed on hold. He was treated with two units of packed red blood cells. He has not had any symptoms consistent with gastrointestinal bleed. He also reported worsening cough and was given prescription for Tessalon Perles, which he reports has helped a bit. He has had some chronic nasal congestion as well, but this has also improved. His fatigue, though chronic, does seem improved compared to last week. 1. Myelodysplastic syndrome: Plan is for patient to initiate Vidaza, and we will proceed with Cycle #1, day 1 today. He is aware that he will return to clinic the rest of the week, for days 2 through 5. He is aware that he will be treated on days 1 through 5 of a 28-day cycle. 2. Anemia: Improved with hemoglobin today of 9.0 and hematocrit 29.2%, up from previous hemoglobin of 6.9 and hematocrit of 23.1%. We will continue to monitor his labs. He is aware that anemia is related to his underlying myelodysplastic syndrome. He is to alert us for any changes. 3. Cough: He will continue with his Tessalon Perles as needed. 4. Hypoxia: Oxygen saturation today upon assessment and prior to initiating any treatment was found to be 83% and 89% on room air. Walking a few steps, oxygen saturation was approximately 84% to 85% on room air. He was placed on 2L to 3L of oxygen nasal cannula, and oxygen saturation improved up to 96%. He remained on 2L throughout his visit here. As such, I am going to see if we can help initiate the process for patient to have oxygen at home, at least to use at night and with activity. I did explain to patient that typically, either primary care physicians or even pulmonologists usually prescribe that and take that over. Also discussed that his oxygenation is largely related to his anemia. We will attempt to get this process going for him, however. 5. Patient will return to clinic next week for repeat labs and toxicity check after initiating Cycle #1 with Vidaza. 6. Patient will return to clinic in three weeks to initiate Cycle #2 with Vidaza. He should have followup visit with either myself or his medical oncologist, Dr. Salcido, at that time. [facility]
[2018-06-22 12:31] VITALS: BP 112/58
[2018-06-23 11:33] VITALS: BP 98/57
[2018-06-24 14:23] VITALS: BP 107/78
[2018-06-25 11:39] VITALS: BP 96/65
[2018-06-25] MEDS: LIDOCAINE/SOD BICARB 8.4% SYR ID PRN (12:33)
[2018-06-25 13:40] VITALS: BP 100/51
--- NOTE | 2018-06-25 17:47 | [facility] ONCOLOGY NOTE ---
EVENT DATE: June 25, 2018 DIAGNOSES 1. Myelodysplastic syndrome, high risk by International Prognostic Scoring System, Revised (IPSS-R). 2. Pancytopenia due to myelodysplastic syndrome. 3. Basal cell carcinoma of the face and neck. CHIEF COMPLAINT Patient is here today for followup of his pancytopenia. HEMATOLOGY/ONCOLOGY HISTORY Patient is a 72-year old male who was diagnosed four years ago with basal cell carcinoma of the left side of the face and left side of the neck, and patient at that time was considered inoperable, so he did not receive any treatment or resection, and patient declined radiation therapy at that time. Patient moved from [place] to [place] five months ago. He has been seen by Dr. Carter recently for an abscess on the right leg, and patient was referred because of his basal cell carcinoma of the left side of the face, below the left eye, and left side of the neck. Patient has started radiation therapy here in [place] for that recently, and he is still on radiation therapy with improvement. Patient also found to have pancytopenia. His white count was 2.3, hemoglobin 9.1, hematocrit 29.6, platelet 64,000. ANC was 0.8. He has some blood work for the pancytopenia. His vitamin B12 was 192, near the lower end of normal, but methylmalonic acid assay was normal at 0.28. Serum folate was more than 22.3. TSH was 3.1. Serum protein electrophoresis showed normal pattern. Normal monoclonal protein. Patient had bone marrow aspiration biopsy done on the April, and the diagnosis came back positive for myelodysplastic syndrome with 5% to 9% blasts. 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 He had a score of 5 according to the IPSS-R/prognostic score system. Patient started treatment with Vidaza for his myelodysplastic syndrome on the May. HISTORY OF PRESENT ILLNESS The patient is here today for followup of his myelodysplastic syndrome and treatment with Vidaza. He tolerated the first dose very well without much complication. He is complaining of cough with expectoration and shortness of breath. He is also weak, tired, and fatigued. He actually lost the taste for food, which could be due to his radiation therapy because he had this problem even before we started him on treatment. 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 PAST SURGICAL HISTORY 1. Pilonidal sinus removal. 2. Tonsillectomy. FAMILY HISTORY Father had melanoma. Sister had breast cancer. SOCIAL HISTORY Patient is with two children. 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 Denies any abuse of tobacco, alcohol, or illicit drugs. CURRENT MEDICATIONS None. ALLERGIES No known drug allergies. REVIEW OF SYSTEMS CONSTITUTIONAL: No appetite or weight change. No fever, chills, or sweating. No recent infection. HEENT: Ears: No tinnitus or hearing problem. Nose: No nasal discharge or epistaxis. Throat: No sore throat or mouth ulcers. Eyes: No diplopia or visual changes. RESPIRATORY: He has cough with expectoration and shortness of breath. No hemoptysis. CARDIOVASCULAR: No chest pain, orthopnea, or paroxysmal nocturnal dyspnea (PND). No edema. No palpitations. GASTROINTESTINAL: No nausea or vomiting. No diarrhea or constipation. No change in bowel movements. No heartburn or swallowing difficulties. No abdominal pain. No jaundice. No hematemesis, melena, or rectal bleeding. GENITOURINARY: No hematuria or dysuria. MUSCULOSKELETAL: No pain in the muscles, joints, or bones. NEUROLOGICAL: No tingling or numbness in the hands or feet. No headaches or convulsions. HEMATOLOGIC/LYMPHATIC: No bleeding or easy bruising. He is weak, tired, and fatigued. No enlarged lymph nodes. SKIN: No skin rash or lumps. PSYCHIATRIC: No anxiety or depression. PHYSICAL EXAMINATION GENERAL: Looks stable. Well developed, well nourished, and in no acute distress. VITAL SIGNS: Blood pressure 96/65, pulse 73 per minute, respirations 16 per minute, temperature 99.6, pulse ox 88% on room air. HEENT: Head: Atraumatic. No sinus tenderness to palpation. Eyes: No icterus or conjunctivitis. Mouth and Throat: No oral thrush or mucositis. Face: The basal cell carcinoma of the face is actually healing very well with radiation. NECK: Supple. No cervical or supraclavicular lymphadenopathy. LUNGS: Clear to auscultation and percussion bilaterally. HEART: Regular rate and rhythm. No gallops, murmurs, clicks, or rubs. ABDOMEN: Soft and lax. No tenderness. No hepatosplenomegaly. No masses. EXTREMITIES: No cyanosis, clubbing, or edema. LYMPHATICS: No peripheral lymphadenopathy. NEUROLOGICAL: Conscious, alert, and oriented times three. No focal motor or sensory deficits. PSYCHIATRIC: Mood and affect appear normal. SKIN: No skin rash, bruise, or purpuric eruption. DIAGNOSTIC DATA CBC showed white count 3.9, hemoglobin 8.1, hematocrit 26.8, platelets 78,000. Chem panel normal except sodium 134, blood sugar 133, albumin 3.4. ASSESSMENT 1. High-risk myelodysplastic syndrome based on positive bone marrow done on the April, which showed myeloblasts of 5%. 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 According to the International Prognostic Scoring System, Revised, patient has a score of 5, which puts him as high risk. He had a score of zero for ANC above 0.8, 0.5 for platelets between 50,000 to 100,000, 1.5 for hemoglobin less than 8, a score of 2 for myeloblasts between 5% and 10%, and cytogenetics of 1 based on deletion of chromosome #20. Patient started treatment with Vidaza on the May. He tolerated the first cycle very well, and I am planning to proceed with his second cycle. I explained to the patient and his son today about delayed response sometimes with the treatment of Vidaza. 2. Basal cell carcinoma of the left side of the face and below the left eye and the left side of the neck, status post radiation therapy completed on the May. PLAN 1. Vidaza cycle #2. 2. CBC, chem panel to be checked weekly. 3. Patient to return in four weeks with CBC and chem panel. 4. Patient to contact us for any new concerns or complaints. [facility]
[2018-06-29 14:20] VITALS: BP 107/71
[2018-06-29 15:11] LABS: PLATELET COUNT, AUTOMATED 44 K/uL (150-450)
[2018-07-06 15:16] VITALS: BP 131/71
[2018-07-06] MEDS: LIDOCAINE/SOD BICARB 8.4% SYR ID PRN (15:27)
[2018-07-06] MEDS: NS(*) 0.9% 500 ML BAG 500 ML IV PRN (15:28)
[2018-07-06 15:30] VITALS: BP 99/62
[2018-07-06 15:43] VITALS: BP 102/59
[2018-07-06 16:11] VITALS: BP 110/66
[2018-07-08 12:47] LABS: PLATELET COUNT, AUTOMATED 55 K/uL (150-450)
[2018-07-08 12:58] VITALS: BP 109/61
[2018-07-19 11:33] VITALS: BP 95/67
--- NOTE | 2018-07-20 02:17 | ONCOLOGY FOLLOW UP NOTE ---
EVENT DATE: July 19, 2018 DIAGNOSES 1. Myelodysplastic syndrome, high risk by International Prognostic Scoring System, Revised (IPSS-R). 2. Pancytopenia due to myelodysplastic syndrome. 3. Basal cell carcinoma of the face and neck. CHIEF COMPLAINT Patient is here today for followup care for his MDS, high risk. He reports feeling well. He reports that his recent wounds to the forehead and right buttock are healing well. He denies any significant pain. HEMATOLOGY/ONCOLOGY HISTORY Patient is a 72-year old male who was diagnosed four years ago with basal cell carcinoma of the left side of the face and left side of the neck, and patient at that time was considered inoperable, so he did not receive any treatment or resection, and patient declined radiation therapy at that time. Patient moved from [place] to [place] five months ago. He has been seen by Dr. Carter recently for an abscess on the right leg, and patient was referred because of his basal cell carcinoma of the left side of the face, below the left eye, and left side of the neck. Patient has started radiation therapy here in [place] for that recently, and he is still on radiation therapy with improvement. Patient also found to have pancytopenia. His white count was 2.3, hemoglobin 9.1, hematocrit 29.6, platelet 64,000. ANC was 0.8. He has some blood work for the pancytopenia. His vitamin B12 was 192, near the lower end of normal, but methylmalonic acid assay was normal at 0.28. Serum folate was more than 22.3. TSH was 3.1. Serum protein electrophoresis showed normal pattern. Normal monoclonal protein. Patient had bone marrow aspiration biopsy done on May 17, 2018, and the diagnosis came back positive for myelodysplastic syndrome with 5% to 9% blasts. 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 He had a score of 5 according to the IPSS-R/prognostic score system. Originally, patient was initiated to start treatment with Vidaza for his myelodysplastic syndrome on the June 07, 2018. However, this was postponed secondary to decreased performance status and patient's anxiety over treatment. He required a blood transfusion during that time. He actually started Cycle #1, Day 1, with Vidaza on 06/21/18. He was inpatient from 06/29/18 to 07/03/18 secondary to his wound infections and worsening pancytopenia, requiring blood transfusion and platelet transfusion. HISTORY OF PRESENT ILLNESS Gaurav is here today for followup and is accompanied to the office by his son-in-law. He is due to initiate Cycle #2 with Vidaza today. As noted above, he was hospitalized for about a week starting on 06/29/18 due to fever and two new wounds noted to the left forehead and right buttock, which required inpatient care and IV antibiotics. At that time, he was pancytopenic and required several blood and platelet transfusions. He did see General Surgery while inpatient and did receive wound care to the area. Patient reports ongoing fatigue, but tells me this is much improved since his hospitalization. He has only a minimal cough, but this is only improved. He has Tessalon Perles to use p.r.n., though he has not used these in some time. He does have dyspnea on exertion and some shortness of breath, though this is all managed. He was recently started on oxygen at bedtime. He also recently obtained a portable pulse oximeter, which makes him less anxious. He has lost taste for food, though this could certainly be due to radiation therapy. He did have this problem prior to starting treatment, however. The wound to the right buttock has significantly decreased in size and is no longer painful. Gaurav reports that this is barely noticeable. The wound to the left forehead has also significantly decreased in size. 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 PAST SURGICAL HISTORY 1. Pilonidal sinus removal. 2. Tonsillectomy. FAMILY HISTORY Father had melanoma. Sister had breast cancer. SOCIAL HISTORY Patient is with two children. 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 Denies any abuse of tobacco, alcohol, or illicit drugs. CURRENT MEDICATIONS None. ALLERGIES No known drug allergies. REVIEW OF SYSTEMS CONSTITUTIONAL: Patient denies any recent fevers, chills, or night sweats. No recent infections. He was recently hospitalized in early to mid June due to the wounds noted above. He is no longer on antibiotics. HEENT: No vision problems. No tinnitus. He has some occasional nasal drainage but no epistaxis. He does report a productive cough. RESPIRATORY: He continues to have an occasionally productive cough. This has improved. He has some dyspnea on exertion, which has improved with supplemental oxygen. His shortness of breath has improved. He is on O2 via nasal cannula at home and at night. No hemoptysis. No pleuritic chest pain. CARDIOVASCULAR: No chest pain. No syncope or presyncope. GASTROINTESTINAL: No abdominal pain. No nausea or vomiting. No diarrhea or constipation. No bright red blood per rectum or melena. Appetite is somewhat low secondary to dysgeusia. GENITOURINARY: No dysuria, hematuria or genitourinary discharge. MUSCULOSKELETAL: No focal areas of pain. He reports generalized weakness. NEUROLOGICAL: He denies any headaches or seizure-like activity. No complaints of paresthesias to include no tingling or numbness in the hands or feet. HEMATOLOGIC/LYMPHATIC: He denies any free bleeding or easy bruising. He does have some tenderness at the injection sites from Vidaza, though has not had any skin toxicity. PSYCH: Patient denies any severe depression, but does have some depression at baseline. This tends to wax and wane. He tells me that he felt "blue" yesterday, but this then resolved. He denies any suicidal or homicidal ideation at all. ENDOCRINE: He denies any heat or cold intolerance. He reports some generalized fatigue and weakness with overall poor endurance. This has improved since his last visit with us. DERM: The patient's most recent new lesion at the left forehead has significantly decreased in size. He denies any pain to the area. There has been no drainage. The wound to the right gluteal region is also significantly decreased in size, and there is no further drainage. This is now soft and is no longer firm. The remainder of a 12-point review of systems is performed today and is otherwise negative. PHYSICAL EXAMINATION VITAL SIGNS: T 98.6, P 79, R 16, BP 95/67, oxygen saturation 90% room air. Weight today 72.5 kg, stable. GENERAL: In general, this is a pleasant, chronically ill, thin-appearing 72- year old gentleman who appears to be stable and is in no acute distress. There is no stridor. HEAD: Atraumatic, normocephalic. EYES: Sclerae anicteric. ENT/MOUTH: No signs of thrush. No mucositis or suspicious lesions. FACE: Patient has basal cell carcinoma of the face, noticeable underneath the left eye and neck. He is status post radiation. This has been healing well overall, although has been slow to heal. Left forehead wound is barely visible and has drastically decreased in size since last visit. NECK: Supple. No lymphadenopathy. No JVD. LUNGS: Diminished breath sounds bilaterally but overall are fairly clear. No focal findings to include no wheezes, rales or rhonchi. Chest expansion is symmetrical. Respiratory effort is normal. Expiratory phase is slightly prolonged. No stridor. HEART: Regular rate and rhythm. No ectopy. ABDOMEN: Soft, nontender, nondistended. No organomegaly. EXTREMITIES: No edema. No clubbing or cyanosis. NEUROLOGICAL: Patient is awake, alert and x3. There are no focal motor or sensory deficits. PSYCHIATRIC: Mood and affect appear appropriate today. He is quite interactive during our visit. DERM: Positive for this area beneath the left eye on his face that is healing slowly. This is status post radiotherapy for his basal cell carcinoma. New lesions/abscesses to the left forehead and right gluteal region have significantly improved. The area to the left forehead is barely visible. It is no longer raised or dome-like. This is flat and nonerythematous. The abscess to the right gluteal region, which previously measured at least 3 cm in diameter, has significantly decreased. There is no longer any firmness or drainage, and it is much softer. This has drastically improved as well. MUSCULOSKELETAL: Gait is not assessed. Patient is currently in a wheelchair due to fatigue. LABORATORY CBC today: WBC 1.9, ANC 1.3, hemoglobin 10.2, hematocrit 32.6%, platelets 89,000. CMP today: Glucose mildly elevated at 136. Serum creatinine normal at 0.80. Total bilirubin normal at 0.6. AST 49, up from 22. ALT up to 69, previously 27. Alkaline phosphatase 80. LDH normal at 474. Albumin up to normal at 4.0, with normal total protein at 8.1. IMAGING Chest x-ray on 06/29/2018, done for reasons of fever when in the ER: (1) There is diffusely coursing pulmonary interstitium, which is probably new since the lung apices are well aerated, and unremarkable on the recent CT. (2) No claudia consolidation or pleural effusion seen. Impression: Findings most concerning for pneumonitis, which could include hypersensitivity pneumonitis. IMPRESSION/PLAN This is a pleasant 72-year old male with high-risk myelodysplastic syndrome based on positive bone marrow done on May 17, 2018, which showed myeloblasts of 5%. 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 According to the International Prognostic Scoring System, Revised, patient has a score of 5, which puts him as high risk. He had a score of zero for ANC above 0.8, 0.5 for platelets between 50,000 to 100,000, 1.5 for hemoglobin less than 8, a score of 2 for myeloblasts between 5% and 10%, and cytogenetics of 1 based on deletion of chromosome #20. We had hoped patient would start treatment towards mid May, although this was delayed secondary to performance status, anxiety regarding treatment and the need for blood transfusion. He ended up initiating Cycle #1, Day 1, with Vidaza on 06/21/18. He completed one full cycle and was then seen on 06/29/18 and was noted to be febrile, was quite weak, and had two new abscesses, one on the left anterior forehead and a second on the right glute. We were concerned about the risk for infection, as he did have a fever that day. He was sent to the emergency room for further evaluation and was then inpatient for approximately one week. He did require wound care while inpatient and did also see General Surgery for consultation, as surgical debridement was discussed. With wound care and intravenous antibiotics, these then resolved. He recently followed up with Dr. Carter for evaluation of the wounds. He does still have a central area of necrosis to the right buttock wound, though this is sloughing off, and as noted above, the affected area is much smaller. There is still some surrounding induration, but there is no drainage and no fluctuance. His blood counts today have improved. He did require a blood transfusion and platelet transfusion while inpatient. 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 1. High-risk myelodysplastic syndrome: Patient will continue with Vidaza today, Cycle #2, Day 1. We will plan for him to continue with days 1 through 5 this week unless there are any major lab changes with repeat labs later this week. 2. Okay to proceed with platelet count today of 89,000. Given patient's history, platelets are actually in excellent range for him. 3. Neutropenia, related to myelodysplastic syndrome. We reviewed neutropenic precautions. Total ANC is 1.3, and we will proceed with treatment. Currently, the two wounds do not appear to have active infection and are not actively draining. 4. Basal cell carcinoma of the left-sided face/left eye and left side of neck: Status post radiation therapy, completed on 06/03/18. We will continue to monitor this as this is still healing. 5. Cough: Improved though intermittent. Discussed with patient that he may continue to use Tessalon Perles. He has not used these in some time, but is able to reinitiate these. 6. Patient will return to clinic for the rest of this week for remainder of Cycle #2 with Vidaza. 7. He will return to clinic next week for weekly labs. 8. Patient will return to clinic on Thursday this week, 07/23/18, for followup with his medical oncologist, Dr. Salcido. [facility]
[2018-07-20 11:28] VITALS: BP 87/65
[2018-07-21 11:30] VITALS: BP 99/69
[2018-07-22 11:36] VITALS: BP 115/74
[2018-07-23 11:42] VITALS: BP 115/74
--- NOTE | 2018-07-23 20:26 | ONCOLOGY FOLLOW UP NOTE ---
EVENT DATE: July 23, 2018 DIAGNOSES 1. Myelodysplastic syndrome, high risk by International Prognostic Scoring System, Revised (IPSS-R). 2. Pancytopenia due to myelodysplastic syndrome. 3. Basal cell carcinoma of the face and neck. CHIEF COMPLAINT Patient is here today for followup of his myelodysplastic syndrome, on treatment with Vidaza. HEMATOLOGY/ONCOLOGY HISTORY Patient is a 72-year old male who was diagnosed four years ago with basal cell carcinoma of the left side of the face and left side of the neck, and patient at that time was considered inoperable, so he did not receive any treatment or resection, and patient declined radiation therapy at that time. Patient moved from [place] to [place] five months ago. He has been seen by Dr. Carter recently for an abscess on the right leg, and patient was referred because of his basal cell carcinoma of the left side of the face, below the left eye, and left side of the neck. Patient has started radiation therapy here in [place] for that recently, and he is still on radiation therapy with improvement. Patient also found to have pancytopenia. His white count was 2.3, hemoglobin 9.1, hematocrit 29.6, platelet 64,000. ANC was 0.8. He had some blood work for the pancytopenia. His vitamin B12 was 192, near the lower end of normal, but methylmalonic acid assay was normal at 0.28. Serum folate was more than 22.3. TSH was 3.1. Serum protein electrophoresis showed normal pattern, normal monoclonal protein. Patient had bone marrow aspiration biopsy done on the April, and the diagnosis came back positive for myelodysplastic syndrome with 5% to 9% blasts. 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 He had a score of 5 according to the IPSS-R/prognostic score system. Patient started treatment with Vidaza for his myelodysplastic syndrome on the May. HISTORY OF PRESENT ILLNESS Patient is here today for followup of his myelodysplastic syndrome and treatment with Vidaza. He is complaining of cough with a little phlegm. He is also short-winded sometimes. He has occasional diarrhea, and he is weak, tired, and fatigued. 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 PAST SURGICAL HISTORY 1. Pilonidal sinus removal. 2. Tonsillectomy. FAMILY HISTORY Father had melanoma. Sister had breast cancer. SOCIAL HISTORY Patient is with two children. 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 Denies any abuse of tobacco, alcohol, or illicit drugs. CURRENT MEDICATIONS 1. Prescribed Tessalon Perles 100 mg capsule three times daily as needed for cough. 2. Ciprofloxacin drops, one drop left eye three times daily. 3. Bacitracin polymyxin eye ointment three times daily. 4. Silver sulfadiazine cream to be applied topically. 5. Neosporin topically. 6. Multivitamin one tablet a day. 7. Lorazepam 1 mg as needed. 8. Refresh Classic eye drops, each eye one drop. 9. Dimethicone cream to be applied topically. ALLERGIES No known drug allergies. REVIEW OF SYSTEMS CONSTITUTIONAL: No appetite or weight change. No fever, chills, or sweating. No recent infection. HEENT: Ears: No tinnitus or hearing problem. Nose: No nasal discharge or epistaxis. Throat: No sore throat or mouth ulcers. Eyes: No diplopia or visual changes. RESPIRATORY: Patient has cough with a little phlegm. He is short-winded. CARDIOVASCULAR: No chest pain, orthopnea, or paroxysmal nocturnal dyspnea (PND). No edema. No palpitations. GASTROINTESTINAL: No nausea or vomiting. He has occasional diarrhea. No constipation. No change in bowel movements. No heartburn or swallowing difficulties. No abdominal pain. No jaundice. No hematemesis, melena, or rectal bleeding. GENITOURINARY: No hematuria or dysuria. MUSCULOSKELETAL: No pain in the muscles, joints, or bones. NEUROLOGIC: No tingling or numbness in the hands or feet. No headaches or convulsions. HEMATOLOGIC/LYMPHATIC: No bleeding or easy bruising. He is weak, tired, and fatigued. No enlarged lymph nodes. SKIN: No skin rash or lumps. PSYCHIATRIC: No anxiety or depression. PHYSICAL EXAMINATION GENERAL: Looks stable. Well developed, well nourished, and in no acute distress. VITAL SIGNS: Blood pressure 113/68, pulse 95 per minute, respirations 16 per minute, temperature 98.6, pulse ox 86% on room air. HEENT: Head: Atraumatic. No sinus tenderness to palpation. Eyes: No icterus or conjunctivitis. Mouth and Throat: No oral thrush or mucositis. NECK: Supple. No cervical or supraclavicular lymphadenopathy. LUNGS: Clear to auscultation and percussion bilaterally. HEART: Regular rate and rhythm. No gallops, murmurs, clicks, or rubs. ABDOMEN: Soft and lax. No tenderness. No hepatosplenomegaly. No masses. EXTREMITIES: No cyanosis, clubbing, or edema. LYMPHATICS: No peripheral lymphadenopathy. NEUROLOGIC: Conscious, alert, and oriented times three. No focal motor or sensory deficits. PSYCHIATRIC: Mood and affect appear normal. SKIN: The skin below the left eye showed evidence of granulation over the wound below the eye. DIAGNOSTIC DATA CBC showed white count 2000, hemoglobin 9.6, hematocrit 30.5, platelets 93,000. ANC is 1.1. Chem panel normal except sodium 136, blood sugar 137. ASSESSMENT 1. High-risk myelodysplastic syndrome based on positive bone marrow biopsy done April and showed myeloblasts of 5%. 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 According to the International Prognostic Scoring System, Revised, patient has a score of 5, which puts him as a high risk. He had a score of zero for ANC above 0.8, 0.5 for platelets between 50,000 to 100,000, 1.5 for hemoglobin less than 8, a score of 2 for myeloblasts between 5% and 10%, and cytogenetics 1 based on deletion of chromosome #20. Patient started treatment with Vidaza on the May. He is tolerating treatment well. His current CBC is reasonable. His platelet count currently is 93,000. He received a platelet transfusion a week ago. I am planning to continue the same treatment, and hopefully the patient will be transfusion independent in the future. I will see him in a month from now with CBC and chemistry panel. 2. Basal cell carcinoma of the left side of the face and below the left eye and the left side of the neck, status post radiation therapy completed on the May with difficulty healing of the lesion below the left eye. PLAN 1. Vidaza cycle #5 as per schedule. 2. CBC, chem panel to be checked weekly. 3. Patient to return in four weeks with CBC and chem panel. 4. Patient to contact us for any new concerns or complaints. [facility]
[2018-07-29 11:07] VITALS: BP 95/56
[2018-07-29 11:12] LABS: PLATELET COUNT, AUTOMATED 58 K/uL (150-450)
[2018-08-04 11:29] VITALS: BP 114/67
[2018-08-04 12:01] LABS: PLATELET COUNT, AUTOMATED 33 K/uL (150-450)
[2018-08-09 11:28] VITALS: BP 109/58
[2018-08-09 12:00] LABS: PLATELET COUNT, AUTOMATED 28 K/uL (150-450)
[2018-08-12 11:39] VITALS: BP 92/61
[2018-08-12 12:26] LABS: PLATELET COUNT, AUTOMATED 29 K/uL (150-450)
[2018-08-12] MEDS: FILGRASTIM 480 MCG/0.8 ML SYRINGE SC PRN (13:14)
[2018-08-12] MEDS: NS(*) 0.9% 500 ML BAG 500 ML IV PRN (15:50)
[2018-08-12 15:53] VITALS: BP 104/62
[2018-08-12 16:09] VITALS: BP 102/59
[2018-08-12] MEDS: LIDOCAINE/SOD BICARB 8.4% SYR ID PRN (16:30)
[2018-08-12 16:48] VITALS: BP 101/58
[2018-08-12 16:54] VITALS: BP 101/58
[2018-08-13 13:20] VITALS: BP 109/66
[2018-08-13] MEDS: FILGRASTIM 480 MCG/0.8 ML SYRINGE SC PRN (13:22)
[2018-08-17 11:21] VITALS: BP 97/59
[2018-08-18 11:24] VITALS: BP 107/64
[2018-08-19 11:13] VITALS: BP 117/58
[2018-08-19 11:22] LABS: PLATELET COUNT, AUTOMATED 72 K/uL (150-450)
--- NOTE | 2018-08-19 16:02 | Oncology Note ---
Alerted by Cassidy Hammond RN, of pt's CBC results. His ANC responded well to recent GCSF, with today's ANC at 3.2, up from previous 0.6 on 08/17/18. Platelets are stable and holding steady, today at 72,000, comparable to 74,000 two days ago on 08/17/18. Hgb today is down to 7.9 g/dL, compared to 8.7 two days ago on 08/17/18. I spoke with Mr. Sewell chairside today and he's actually feeling quite well, has stable energy, and his breathing status is currently good and hasn't changed. He checks in O2 sats routinely at home. He denies any bleeding. No excessive bruising. As he does have MDS, currently on Vidaza, our threshold to treat with PRBCs is a little lower. Therefore, since he's stable, feeling well, and isn't asymptomatic, we will discharge him from clinic today with parameters given on when to call our office. He will RTC next Thursday for his next cycle of Vidaza, which was held due to worsening neutropenia earlier this week and held due to his history. If he becomes more anemic next week and symptomatic, we will treat with Vidaza if other counts are otherwise stable and may consider transfusion with PRBCs next week. Discussed this with nursing staff today. ROEL Montoya APRN,JEREMÍAS August 19, 2018 16:02
[2018-08-23 10:53] VITALS: BP 103/88
[2018-08-24 12:58] VITALS: BP 103/67
[2018-08-25 12:55] VITALS: BP 111/62
[2018-08-26 11:46] VITALS: BP 107/64
[2018-08-26 11:47] LABS: PLATELET COUNT, AUTOMATED 42 K/uL (150-450)
--- NOTE | 2018-08-26 14:10 | [facility] ONCOLOGY NOTE ---
EVENT DATE: August 26, 2018 DIAGNOSES 1. Myelodysplastic syndrome, high risk by International Prognostic Scoring System, Revised (IPSS-R). 2. Pancytopenia due to myelodysplastic syndrome. 3. Basal cell carcinoma of the face and neck. CHIEF COMPLAINT Patient is here today for followup of his myelodysplastic syndrome, on treatment with Vidaza. HEMATOLOGY/ONCOLOGY HISTORY Patient is a 72-year old male who was diagnosed four years ago with basal cell carcinoma of the left side of the face and left side of the neck, and patient at that time was considered inoperable, so he did not receive any treatment or resection, and patient declined radiation therapy at that time. Patient moved from [place] to [place] five months ago. He has been seen by Dr. Carter recently for an abscess on the right leg, and patient was referred because of his basal cell carcinoma of the left side of the face, below the left eye, and left side of the neck. Patient has started radiation therapy here in [place] for that recently, and he is still on radiation therapy with improvement. Patient also found to have pancytopenia. His white count was 2.3, hemoglobin 9.1, hematocrit 29.6, platelet 64,000. ANC was 0.8. He had some blood work for the pancytopenia. His vitamin B12 was 192, near the lower end of normal, but methylmalonic acid assay was normal at 0.28. Serum folate was more than 22.3. TSH was 3.1. Serum protein electrophoresis showed normal pattern, normal monoclonal protein. Patient had bone marrow aspiration biopsy done on the April, and the diagnosis came back positive for myelodysplastic syndrome with 5% to 9% blasts. 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 He had a score of 5 according to the IPSS-R/prognostic score system. Patient started treatment with Vidaza for his myelodysplastic syndrome on the May. HISTORY OF PRESENT ILLNESS Patient is here today for followup of his myelodysplastic syndrome, on treatment with Vidaza. He is complaining of cough with expectoration and shortness of breath. He has occasional numbness in his toes. He is weak, tired and fatigued but other than that his general condition is much improved and his transfusion independence is getting better. 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 PAST SURGICAL HISTORY 1. Pilonidal sinus removal. 2. Tonsillectomy. FAMILY HISTORY Father had melanoma. Sister had breast cancer. SOCIAL HISTORY Patient is with two children. 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 Denies any abuse of tobacco, alcohol, or illicit drugs. CURRENT MEDICATIONS 1. Prescribed Tessalon Perles 100 mg capsule three times daily as needed for cough. 2. Ciprofloxacin drops, one drop left eye three times daily. 3. Bacitracin polymyxin eye ointment three times daily. 4. Silver sulfadiazine cream to be applied topically. 5. Neosporin topically. 6. Multivitamin one tablet a day. 7. Lorazepam 1 mg as needed. 8. Refresh Classic eye drops, each eye one drop. 9. Dimethicone cream to be applied topically. ALLERGIES No known drug allergies. REVIEW OF SYSTEMS CONSTITUTIONAL: No appetite or weight change. No fever, chills, or sweating. No recent infection. HEENT: Ears: No tinnitus or hearing problem. Nose: No nasal discharge or epistaxis. Throat: No sore throat or mouth ulcers. Eyes: No diplopia or visual changes. RESPIRATORY: He has cough with expectoration and shortness of breath. CARDIOVASCULAR: No chest pain, orthopnea, or paroxysmal nocturnal dyspnea (PND). No edema. No palpitations. GASTROINTESTINAL: No nausea or vomiting. He has occasional diarrhea. No constipation. No change in bowel movements. No heartburn or swallowing difficulties. No abdominal pain. No jaundice. No hematemesis, melena, or rectal bleeding. GENITOURINARY: No hematuria or dysuria. MUSCULOSKELETAL: No pain in the muscles, joints, or bones. NEUROLOGIC: He has occasional numbness in his toes. HEMATOLOGIC/LYMPHATIC: He is weak, tired and fatigued. SKIN: No skin rash or lumps. PSYCHIATRIC: No anxiety or depression. PHYSICAL EXAMINATION GENERAL: Looks stable. Well developed, well nourished, and in no acute distress. VITAL SIGNS: Blood pressure 107/64, pulse 92 per minute, respirations 16 per minute, temperature 98.7, pulse ox 91% on room air. HEENT: Head: Atraumatic. No sinus tenderness to palpation. Eyes: No icterus or conjunctivitis. Mouth and Throat: No oral thrush or mucositis. NECK: Supple. No cervical or supraclavicular lymphadenopathy. LUNGS: Clear to auscultation and percussion bilaterally. HEART: Regular rate and rhythm. No gallops, murmurs, clicks, or rubs. ABDOMEN: Soft and lax. No tenderness. No hepatosplenomegaly. No masses. EXTREMITIES: No cyanosis, clubbing, or edema. LYMPHATICS: No peripheral lymphadenopathy. NEUROLOGIC: Conscious, alert, and oriented times three. No focal motor or sensory deficits. PSYCHIATRIC: Mood and affect appear normal. SKIN: The skin below the left eye showed evidence of granulation over the wound below the eye. DIAGNOSTIC DATA CBC showed white count 1.5, hemoglobin 7.8, hematocrit 25.3, platelets 42,000. ANC is 1. ASSESSMENT 1. High-risk myelodysplastic syndrome based on positive bone marrow biopsy done May 17, 2018 and showed myeloblasts 5%. 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 According to the International Prognostic Scoring System, Revised, patient has a score of 5, which puts him as a high risk. He had a score of 0 for ANC above 0.8, 0.5 for platelets between 50,000 to 100,000, 1.5 for hemoglobin less than 8, a score of 2 for myeloblasts between 5% and 10%, and cytogenetics 1 based on the deletion of chromosome #20. Patient started treatment with Vidaza on June 07, 2018. He completed two cycles and currently he is receiving his third cycle, started on August 24, 2018. Generally speaking, he does not have any transfusion for the last 1-1/2 months. I am planning to continue treatment with Vidaza and I will see him in four weeks from now prior to the next cycle of Vidaza with CBC, chem panel, LDH and uric acid at that time. 2. Anemia. Hemoglobin currently is 7.8 g/dL. I will consider blood transfusion if the hemoglobin drops below 7 g/dL. 3. Thrombocytopenia. Current platelet count is 42,000. Consider platelet transfusion if bleeding with count is 50,000 or less than 10,000 without bleeding. 4. Neutropenia. Current ANC is 1,000. Neutropenic precautions are explained to the patient including report a fever of 100.5 PLAN 1. Vidaza cycle #3 as per schedule. 2. CBC, chem panel to be checked weekly. 3. Patient to return in four weeks with CBC and chem panel. 4. Patient to contact us for any new concerns or complaints. WANDY
[2018-08-27 13:17] VITALS: BP 115/67
--- NOTE | 2018-09-01 11:51 | ONCOLOGY FOLLOW UP NOTE ---
EVENT DATE: September 01, 2018 Gaurav presented to the clinic by himself this morning. He was very anxious and complained of significant constipation. He became more anxious and was slightly diaphoretic with rapid breathing. He has a previous psych history, so the decision was made to transfer him to the emergency room for evaluation and care. He had not had a bowel movement for 3 to 4 days, so may require an enema. He is instructed to follow up with us after ER visit and we can recommend maintenance medications to prevent constipation as stool softeners were not effective. The patient's was notified. WANDY
[2018-09-01 14:55] LABS: PLATELET COUNT, AUTOMATED 35 K/uL (150-450)
[2018-09-02 11:17] VITALS: BP 123/69
[2018-09-02 11:38] VITALS: BP 97/58
[2018-09-02 13:27] VITALS: BP 105/63
[2018-09-02 13:29] VITALS: BP 105/63
[2018-09-02 13:42] VITALS: BP 102/64
[2018-09-02 15:41] VITALS: BP 106/70
[2018-09-07 11:56] VITALS: BP 99/61
[2018-09-07 12:25] LABS: PLATELET COUNT, AUTOMATED 17 K/uL (150-450)
[2018-09-07] MEDS: LIDOCAINE/SOD BICARB 8.4% SYR ID PRN (15:27)
[2018-09-07 16:03] VITALS: BP 111/64
[2018-09-07 16:19] VITALS: BP 107/61
[2018-09-07 16:46] VITALS: BP 107/64
[2018-09-07 16:49] VITALS: BP 107/64
[~2018-09-14] VITALS: Ht 181.6 cm; Wt 75.8 kg
[~2018-09-14 11:12] MED LIST changes: +AZACITIDINE SQ ONE; +DEXTROSE 5%(*) 100 ML BAG 100 ML IVPB PRN; +FILGRASTIM 480 MCG/0.8 ML SYRINGE SC ONE; +FILGRASTIM 480 MCG/0.8 ML SYRINGE SC SCH; +LORazepam 2 MG/ML VIAL IVP ONE; +NS(*) 0.9% 100 ML BAG 100 ML IVPB PRN; +NS(*) 0.9% 1000 ML BAG 1,000 ML IV ONE; +ONDANSETRON 4 MG ODT TABDP SL PRN; +POLY17PO25 PO
[2018-09-14 11:25] VITALS: BP 99/76
[2018-09-14 11:53] LABS: PLATELET COUNT, AUTOMATED 42 K/uL (150-450)
== END 2018-09-16 ==
LOC: SPU 11:12
PROVIDERS: ATTEND Internal Medicine Hematology
DX: D46.9 Myelodysplastic syndrome, unspecified (principal); D61.818 Other pancytopenia; R05 Cough; R09.02 Hypoxemia; C76.0 Malignant neoplasm of head, face and neck
CPT/HCPCS: 36415; 83615; 84100; 84550; 85025; 85027; 86644; 86900; 86901; 96372; 96401; G0463; J1442; J2060; J7030; J7040; J9025; P9016; P9035; Q0162; 36430; 82040; 82247; 82310; 82374; 82435; 82565; 82947; 84075; 84132; 84155; 84295; 84450; 84460; 84520; 86850; 86920; 96374; 99212; S0119